=== PATIENT | female | born 1960 | race Caucasian/White ===

== ENCOUNTER 2016-09-12 11:12 | Outpatient (CLI) | payer MEDICARE, OTHER | END 2016-09-12 11:13 | disposition home or self-care (01) | DX: G47.00 Insomnia, unspecified (principal); F17.210 Nicotine dependence, cigarettes, uncomplicated | CPT/HCPCS: 99203; G0463 ==

== ENCOUNTER 2016-10-04 19:30 | Outpatient (CLI) | payer MEDICARE, OTHER | END 2016-10-04 19:31 | disposition home or self-care (01) | DX: G47.00 Insomnia, unspecified (principal); G47.8 Other sleep disorders ==

== ENCOUNTER 2016-10-11 09:14 | Outpatient (CLI) | payer MEDICARE, OTHER | END 2016-10-11 09:15 | disposition home or self-care (01) | DX: G47.00 Insomnia, unspecified (principal); R06.83 Snoring | CPT/HCPCS: 99214; G0463 ==

== ENCOUNTER 2016-12-05 09:00 | Emergency (ER) | payer MEDICARE, OTHER ==
[2016-12-05] MEDS ORDERED: PROMETHAZINE INJ 25 MG in SODIUM CHLORIDE 0.9% 50 ML IV STA ×2 (09:11→10:34)
[2016-12-05] MEDS ORDERED: SODIUM CHLORIDE 0.9% 1,000 ML IV ONE (09:11)
[2016-12-05] MEDS ORDERED: ONDANSETRON 4 MG/2 ML VIAL ONE ×2 (09:31→09:55)
[2016-12-05] MEDS ORDERED: ONDANSETRON 4 MG/2 ML VIAL IVP STA ×2 (09:38→09:51)
[2016-12-05 09:54] LABS: BASOPHILS % (AUTO) 0.4 %; EOSINOPHILS # (AUTO) 0.1 10^3/uL (0.0-0.7); EOSINOPHILS % (AUTO) 0.6 %; HCT - HEMATOCRIT 40.2 % (37.0-47.0); HGB - HEMOGLOBIN 13.6 g/dL (12.0-16.0); LYMPHOCYTES # (AUTO) 0.7 10^3/uL (1.5-3.5); LYMPHOCYTES % (AUTO) 6.9 %; MEAN CORPUSCULAR HEMOGLOBIN 29.7 pg (27.0-31.0); MEAN CORPUSCULAR HGB CONC 33.9 g/dL (32.0-36.0); MEAN CORPUSCULAR VOLUME 87.7 fL (81.0-99.0); MEAN PLATELET VOLUME 7.7 fL (7.9-10.8); MONOCYTES # (AUTO) 0.2 10^3/uL (0.0-1.0); MONOCYTES % (AUTO) 2.5 %; NEUTROPHILS # (AUTO) 8.8 10^3/uL (1.5-6.6); NEUTROPHILS % (AUTO) 89.6 %; RED BLOOD COUNT 4.59 10^6/uL (4.20-5.40); RED CELL DISTRIBUTION WIDTH 13.7 % (12.0-15.0); UNCORRECTED WHITE BLOOD COUNT 9.8 x10^3/uL; WHITE BLOOD COUNT 9.8 x10^3/uL (4.8-10.8)
--- NOTE | 2016-12-05 10:01 | ED Physician Documentation ---
History of Present Illness - Stated complaint Stated Complaint: VOMITING/ABD PX - Chief complaint Chief Complaint: Abd Pain - Additonal information Additional information: hx from pt 56 f s/p catrachita, L ooph, CS and lap for SBO 1 yr ago on ummunosuppressant meds for crohns to ER with mid r abd pain and NV despite zofran no travel sick contacts bad food loose stools are not new for her no blood in vomit or stools no fever Review of Systems Constitutional: denies: Fever, Chills GI: reports: Abdominal Pain, Nausea, Vomiting, Diarrhea. denies: Hematemesis, Bloody / black stool : denies: Now EGA Musculoskeletal: denies: Back pain Endocrine: denies: Easy bruising / bleeding Immunocompromised: reports: Immunocompromised (2/2 meds) PD PAST MEDICAL HISTORY - Past Medical History Past Medical History: Yes Cardiovascular: None Respiratory: Asthma, COPD Neuro: None Endocrine/Autoimmune: HyPOthyroidism GI: GERD, Crohn's disease : Incontinence, Other HEENT: None Psych: Depression, Anxiety, Bipolar disorder, Post traumatic stress disorder, Obsessive compulsive disorder, Other Musculoskeletal: Chronic back pain Derm: None - Past Surgical History Past Surgical History: Yes General: Cholecystectomy, Bowel surgery /CASING TIER: section, Oophrectomy HEENT: Tonsil/Adenoidectomy - Present Medications Home Medications: Ambulatory Orders Medication Instructions Recorded Confirmed Lamotrigine [Lamictal] 200 mg PO DAILY 11/23/12 12/05/16 Levothyroxine Sodium [Tirosint] 200 mcg PO DAILY 11/23/12 12/05/16 Methylphenidate HCl 20 mg PO TID 12/25/14 12/05/16 [Methylphenidate ER] Calcium Carbonate/Vitamin D3 1 tab PO DAILY 07/30/15 10/30/15 [Calcium 600 + Vit D3 Caplet] Cholecalciferol (Vitamin D3) 1,000 unit PO DAILY 07/30/15 10/30/15 [D3-2000] Fentanyl [Fentanyl 12mcg patch] 75 mcg TD 08/12/15 08/12/15 Albuterol Sulfate [Ventolin Hfa] 2 puffs IH Q4H PRN #1 hfa.aer.ad 02/11/16 Entyvio 04/07/16 Dicyclomine [Bentyl] 10 mg PO Q8H PRN #20 capsule 05/15/17 Ondansetron [Zofran Odt] 8 12/05/16 Promethazine Supp [Phenergan Supp] 25 mg [place] Q6H PRN #15 supp 12/05/16 - Allergies Allergies/Adverse Reactions: Allergies Allergy/AdvReac Type Severity Reaction Status Date / Time aripiprazole [From Abilify] Allergy Intermediate Nausea Verified 05/19/16 09:02 quetiapine fumarate * Allergy Intermediate Hives Verified 05/19/16 09:02 [From Seroquel] Sulfa (Sulfonamide Allergy Intermediate Hives Verified 05/19/16 09:02 Antibiotics) adalimumab [From Humira] Allergy Unknown Verified 05/19/16 09:02 Penicillins Allergy Hives Verified 05/19/16 09:02 - Social History Does the pt smoke?: Yes Smoking Status: Current every day smoker Does the pt drink ETOH?: No Does the pt have substance abuse?: Yes - Immunizations Immunizations are current?: Yes - POLST Patient has POLST: No PD ED PE NORMAL - Vitals Vital signs reviewed: Yes - General General: Alert and oriented X 3 - HEENT HEENT: PERRL - Cardiac Cardiac: RRR - Respiratory Respiratory: No respiratory distress, Clear bilaterally - Abdomen Abdomen: Soft, Other (TTP mid right abd s rebound or fuarding, no pulsatile mass appreciated) - Derm Derm: Normal color - Neuro Neuro: Alert and oriented X 3 Results - Vitals Vitals: Vital Signs - 24 hr 12/05/16 12/05/16 12/05/16 09:10 11:58 12:24 Temperature 36.6 C 36.9 C Heart Rate 60 59 L 59 L Respiratory 22 14 16 Rate Blood Pressure 141/73 H 133/81 H 128/88 H O2 Saturation 99 98 99 Oxygen O2 Source Room air - Tele (time rhythm occurred) 1155 Telemetry / rhythm strip: NSR, Other (no prolonged QT) - Labs Labs: Laboratory Tests 12/05/16 12/05/16 09:45 09:45 WBC 9.8 RBC 4.59 Hgb 13.6 Hct 40.2 MCV 87.7 MCH 29.7 MCHC 33.9 RDW 13.7 Plt Count 262 MPV 7.7 L Neut # 8.8 H Lymph # 0.7 L [place] # 0.2 Eos # 0.1 Baso # 0.0 Absolute Nucleated RBC 0.00 Nucleated RBCs 0.0 Sodium 141 Potassium 4.2 Chloride 105 Carbon Dioxide 24 Anion Gap 12.0 BUN 19 Creatinine 1.0 Estimated GFR (MDRD) 57 L Glucose 134 H Calcium 9.7 Total Bilirubin 0.6 AST 19 ALT 18 Alkaline Phosphatase 104 Total Protein 7.9 Albumin 4.5 Globulin 3.4 Albumin/Globulin Ratio 1.3 Lipase 20 L - Rads (name of study) CT abd pelvis Radiology: See rad report (no acute) PD MEDICAL DECISION MAKING - ED course ED course: CT lasb neg hx cyclic vomiting per chart states no relief with zofran phenergan and dilaudid so tried haldol and approx 25 min later p requested to go home - still with some sx but improved enough to go Departure - Departure Disposition: 01 Home, Self Care Clinical Impression: Nausea & vomiting Qualifiers: Vomiting type: unspecified Vomiting Intractability: unspecified Qualified Code( s): R11.2 - Nausea with vomiting, unspecified Abdominal pain Qualifiers: Abdominal location: unspecified location Qualified Code(s): R10.9 - Unspecified abdominal pain Condition: Good Instructions: ED Abdominal Pain Unkn Cause Follow-Up: Addi Landeros DO [Primary Care Provider] - Prescriptions: Dicyclomine [Bentyl] 10 mg PO Q8H PRN #20 capsule PRN Reason: Abdominal Pain Promethazine Supp [Phenergan Supp] 25 mg [place] Q6H PRN #15 supp PRN Reason: vomiting Comments: Your CT scan and labs were reassuring Review of your chart indicates you may have cyclic vomiting syndrome - perhaps that is what is happening today Given the reassuring work up I think it is safe to let you go home with zofran and phenergan for nausea and vomiting and bentyl for the pain Please follow up with your GI specialist And please get your blood pressure rechecked - it was high today Forms: Activity restrictions
[2016-12-05 10:08] LABS: ALBUMIN/GLOBULIN RATIO 1.3 (1.0-2.2); BILIRUBIN,TOTAL 0.6 mg/dL (0.2-1.0); CALCIUM 9.7 mg/dL (8.5-10.3); POTASSIUM 4.2 mmol/L (3.5-5.0); TOTAL PROTEIN 7.9 g/dL (6.7-8.2)
[2016-12-05] MEDS ORDERED: PROMETHAZINE 25 MG/1 ML VIAL ONE (10:15)
[2016-12-05] MEDS ORDERED: HYDROmorphone 1 MG/ML SYRINGE IVP STA (10:40)
[2016-12-05] MEDS ORDERED: HYDROmorphone 1 MG/ML SYRINGE ONE (10:45)
--- NOTE | 2016-12-05 11:14 | CT Preliminary Report ---
Exam: CT Abdomen/Pelvis W/O IMPRESSION: 1. No evidence of acute abdominal or pelvic process. 2. Postoperative changes from distal small bowel resection and cholecystectomy. [facility] SITE ID: [id number]
--- NOTE | 2016-12-05 11:16 | CT Report ---
EXAM: CT ABDOMEN AND PELVIS EXAM DATE: 12/05/2016 10:53 AM. CLINICAL HISTORY: Right-sided abdominal pain. History of small bowel obstruction and Crohn disease. COMPARISONS: None. TECHNIQUE: Routine helical CT imaging was performed through the abdomen and pelvis. IV contrast: No. Enteric contrast: No. Reconstructions: Coronal and sagittal. In accordance with CT protocol optimization, one or more of the following dose reduction techniques w ere utilized for this exam: automated exposure control, adjustment of mA and/or KV based on patient s ize, or use of iterative reconstructive technique. FINDINGS: Lung Bases: Unremarkable. Liver: Normal. No masses. Gallbladder/Bile Ducts: Gallbladder is surgically absent. No evidence of biliary obstruction. Spleen: Normal. Pancreas: Normal. Adrenal Glands: Normal. Kidneys: Normal. No masses or hydronephrosis. Peritoneal Cavity/Bowel: Previously seen small bowel obstruction has resolved. Postoperative changes are again seen from apparent segmental resection of the distal ileum. No ascites, lymphadenopathy, or pneumoperitoneum. The appendix is not clearly visualized. Pelvic Organs: Normal. The bladder and visualized pelvic organs are within normal limits. Vasculature: No aneurysms or other significant abnormality. Bones: No significant abnormality. Other: None. IMPRESSION: 1. No evidence of acute abdominal or pelvic process. 2. Postoperative changes from distal small bowel resection and cholecystectomy. [facility] Referring Provider Line: [phone] SITE ID: [id number]
[2016-12-05] MEDS ORDERED: HALOPERIDOL 5 MG/ML VIAL IM STA (11:43)
[2016-12-05] MEDS ORDERED: HALOPERIDOL 5 MG/ML VIAL ONE (11:48)
[2016-12-05 12:25] VITALS: BP 128/88
== END 2016-12-05 12:40 | disposition home or self-care (01) ==
LOC: ED 09:00
DX: R11.2 Nausea with vomiting, unspecified (principal); R10.31 Right lower quadrant pain; K50.90 Crohn's disease, unspecified, without complications; J44.9 Chronic obstructive pulmonary disease, unspecified; J45.909 Unspecified asthma, uncomplicated; E03.9 Hypothyroidism, unspecified; K21.9 Gastro-esophageal reflux disease without esophagitis; F17.200 Nicotine dependence, unspecified, uncomplicated
CPT/HCPCS: 36415; 74176; 80053; 83690; 85025; 96372; 96374; 96375; 99283; 99284; J1170

== ENCOUNTER 2016-12-23 11:00 | Outpatient (CLI) | payer MEDICARE, OTHER | END 2016-12-23 11:01 | disposition home or self-care (01) | LOC: LAB.R 11:00 | PROVIDERS: ATTEND Family Medicine | DX: N39.0 Urinary tract infection, site not specified (principal) | CPT/HCPCS: 87077; 87086 ==

== ENCOUNTER 2017-01-31 08:38 | Outpatient (CLI) | payer MEDICARE, OTHER ==
[2017-01-31 13:51] LABS: EOSINOPHILS # (AUTO) 0.2 10^3/uL (0.0-0.7); LYMPHOCYTES % (AUTO) 25.5 %; MONOCYTES # (AUTO) 0.5 10^3/uL (0.0-1.0); NEUTROPHILS # (AUTO) 4.1 10^3/uL (1.5-6.6)
[2017-01-31 13:54] LABS: BASOPHILS % (AUTO) 0.4 %; EOSINOPHILS % (AUTO) 3.5 %; HCT - HEMATOCRIT 36.1 % (37.0-47.0); HGB - HEMOGLOBIN 12.1 g/dL (12.0-16.0); LYMPHOCYTES # (AUTO) 1.6 10^3/uL (1.5-3.5); MEAN CORPUSCULAR HEMOGLOBIN 29.5 pg (27.0-31.0); MEAN CORPUSCULAR HGB CONC 33.5 g/dL (32.0-36.0); MEAN CORPUSCULAR VOLUME 88.1 fL (81.0-99.0); MEAN PLATELET VOLUME 7.9 fL (7.9-10.8); MONOCYTES % (AUTO) 7.5 %; NEUTROPHILS % (AUTO) 63.1 %; RED CELL DISTRIBUTION WIDTH 14.2 % (12.0-15.0); UNCORRECTED WHITE BLOOD COUNT 6.4 x10^3/uL; WHITE BLOOD COUNT 6.4 x10^3/uL (4.8-10.8)
[2017-01-31 14:09] LABS: ALBUMIN/GLOBULIN RATIO 1.3 (1.0-2.2); BILIRUBIN,TOTAL 0.4 mg/dL (0.2-1.0); BUN - BLOOD UREA NITROGEN 21 mg/dL (6-20); CALCIUM 9.3 mg/dL (8.5-10.3); CARBON DIOXIDE - CO2 26 mmol/L (21-32); CHLORIDE 105 mmol/L (101-111); CHOL/HDL RATIO 3.5 (<4.4); CHOLESTEROL 123 mg/dL; GFR - MDRD 57 (>89); GLUCOSE 88 mg/dL (70-100); HDL CHOLESTEROL 35 mg/dL; LDL/HDL RATIO 1.7 (<4.4); POTASSIUM 4.3 mmol/L (3.5-5.0); SODIUM 138 mmol/L (135-145); TOTAL PROTEIN 6.8 g/dL (6.7-8.2); TRIGLYCERIDES 138 mg/dL; VLDL CHOLESTEROL 28 mg/dL
[2017-01-31 19:32] LABS: HEMOGLOBIN A1C 0.44 g/dL
== END 2017-01-31 08:39 | disposition home or self-care (01) ==
LOC: LAB.WCP 08:38
PROVIDERS: ATTEND Nurse Practitioner Psychiatric/Mental Health
DX: Z79.899 Other long term (current) drug therapy (principal)
CPT/HCPCS: 36415; 80053; 80061; 82306; 83036; 84443; 85025

== ENCOUNTER 2017-04-03 08:00 | Outpatient (CLI) | payer MEDICARE, OTHER ==
[2017-04-03 14:04] LABS: BASOPHILS # (AUTO) 0.1 10^3/uL (0.0-0.1); BASOPHILS % (AUTO) 0.8 %; EOSINOPHILS # (AUTO) 0.3 10^3/uL (0.0-0.7); EOSINOPHILS % (AUTO) 4.4 %; HCT - HEMATOCRIT 40.8 % (37.0-47.0); HGB - HEMOGLOBIN 13.5 g/dL (12.0-16.0); LYMPHOCYTES # (AUTO) 1.5 10^3/uL (1.5-3.5); LYMPHOCYTES % (AUTO) 20.7 %; MEAN CORPUSCULAR HEMOGLOBIN 29.3 pg (27.0-31.0); MEAN CORPUSCULAR HGB CONC 33.2 g/dL (32.0-36.0); MEAN CORPUSCULAR VOLUME 88.3 fL (81.0-99.0); MEAN PLATELET VOLUME 7.8 fL (7.9-10.8); MONOCYTES # (AUTO) 0.4 10^3/uL (0.0-1.0); MONOCYTES % (AUTO) 6.1 %; NEUTROPHILS # (AUTO) 4.8 10^3/uL (1.5-6.6); RED BLOOD COUNT 4.61 10^6/uL (4.20-5.40); RED CELL DISTRIBUTION WIDTH 13.6 % (12.0-15.0)
[2017-04-03 14:09] LABS: ALBUMIN/GLOBULIN RATIO 1.3 (1.0-2.2); BILIRUBIN,TOTAL 0.6 mg/dL (0.2-1.0); BUN - BLOOD UREA NITROGEN 17 mg/dL (6-20); CALCIUM 9.6 mg/dL (8.5-10.3); CARBON DIOXIDE - CO2 28 mmol/L (21-32); CHLORIDE 103 mmol/L (101-111); GFR - MDRD 57 (>89); GLUCOSE 96 mg/dL (70-100); SODIUM 138 mmol/L (135-145); TOTAL PROTEIN 7.7 g/dL (6.7-8.2)
[2017-04-03 14:31] LABS: THYROID STIMULATING HORMONE 8.77 uIU/mL (0.34-5.60)
[2017-04-04 12:57] LABS: PROGESTERONE <0.5 ng/mL (())
[2017-04-05 20:02] LABS: DHEA SULFATE 26 mcg/dL (8-188)
== END 2017-04-03 08:01 | disposition home or self-care (01) ==
LOC: LAB.WCP 08:00
DX: G89.29 Other chronic pain (principal); F11.20 Opioid dependence, uncomplicated; Z79.891 Long term (current) use of opiate analgesic
CPT/HCPCS: 36415; 80053; 80061; 82306; 82525; 82533; 82607; 82627; 82670; 82728; 83090; 84144; 84443; 84630; 85025; 86140

== ENCOUNTER 2017-09-18 14:57 | Outpatient (CLI) | payer MEDICARE, OTHER ==
--- NOTE | 2017-09-19 13:16 | CT Report ---
CT CHEST WITHOUT CONTRAST FOR LUNG CANCER SCREENIN09/18/2017 CLINICAL INDICATION: A 56-year-old asymptomatic patient with a [id number] history of smoking, current smoker for screening. COMPARISON: Previous chest CT 12/16/2013. TECHNIQUE: Axial CT images of the chest were obtained without intravenous contrast, using low dose screening technique. FINDINGS: The heart and great vessels are unremarkable. No hilar or mediastinal lymphadenopathy is present. The lungs demonstrate emphysema. No suspicious pulmonary nodule or mass lesion is appreciated. Minimal atelectasis is seen in the right middle lobe. No effusion or pneumothorax is present. Osseous structures demonstrate degenerative changes. Limited evaluation of upper abdominal structures demonstrates normal adrenal glands. IMPRESSION: EMPHYSEMA. NO SUSPICIOUS PULMONARY NODULE OR MASS LESION. RECOMMENDATION: Continue annual screening with low dose CT in 12 months. LUNG RADS category 1 - negative. CT DOSE REDUCTION STATEMENT In accordance with CT protocol optimization, one or more of the following dose reduction techniques were utilized for this exam: automated exposure control, adjustment of mA and/or KV based on patient size, or use of iterative reconstructive technique. TD: 09/19/2017 13:15
== END 2017-09-18 14:58 | disposition home or self-care (01) ==
LOC: DI 14:57
PROVIDERS: ATTEND Family Medicine
DX: Z12.2 Encounter for screening for malignant neoplasm of respiratory organs (principal); J43.9 Emphysema, unspecified; F17.210 Nicotine dependence, cigarettes, uncomplicated

== ENCOUNTER 2017-09-19 08:00 | Outpatient (CLI) | payer MEDICARE, OTHER | END 2017-09-19 08:01 | disposition home or self-care (01) | LOC: LAB.WCP 08:00 | PROVIDERS: ATTEND Family Medicine | DX: N39.0 Urinary tract infection, site not specified (principal) | CPT/HCPCS: 87086 ==

== ENCOUNTER 2017-09-29 11:50 | Outpatient (CLI) | payer MEDICARE, OTHER ==
[2017-09-29 19:06] LABS: BASOPHILS % (AUTO) 0.5 %; EOSINOPHILS # (AUTO) 0.3 10^3/uL (0.0-0.7); EOSINOPHILS % (AUTO) 4.1 %; HGB - HEMOGLOBIN 13.2 g/dL (12.0-16.0); LYMPHOCYTES # (AUTO) 1.5 10^3/uL (1.5-3.5); LYMPHOCYTES % (AUTO) 20.3 %; MEAN CORPUSCULAR HEMOGLOBIN 28.1 pg (27.0-31.0); MEAN CORPUSCULAR HGB CONC 32.5 g/dL (32.0-36.0); MEAN CORPUSCULAR VOLUME 86.6 fL (81.0-99.0); MEAN PLATELET VOLUME 7.9 fL (7.9-10.8); MONOCYTES # (AUTO) 0.4 10^3/uL (0.0-1.0); NEUTROPHILS # (AUTO) 5.1 10^3/uL (1.5-6.6); NEUTROPHILS % (AUTO) 70.1 %; PLT - PLATELET COUNT 362 10^3/uL (130-450); RED CELL DISTRIBUTION WIDTH 13.8 % (12.0-15.0); WHITE BLOOD COUNT 7.3 x10^3/uL (4.8-10.8)
[2017-09-29 19:18] LABS: ALBUMIN 4.1 g/dL (3.2-5.5); ALBUMIN/GLOBULIN RATIO 1.1 (1.0-2.2); ALKALINE PHOSPHATASE 77 IU/L (42-121); ALT ALANINE AMINOTRANSFERASE 16 IU/L (10-60); AST ASPARTATE AMINOTRANSFERASE 18 IU/L (10-42); BILIRUBIN,TOTAL 0.4 mg/dL (0.2-1.0); BUN - BLOOD UREA NITROGEN 27 mg/dL (6-20); CARBON DIOXIDE - CO2 25 mmol/L (21-32); CHLORIDE 104 mmol/L (101-111); CREATININE 0.8 mg/dL (0.4-1.0); GFR - MDRD 74 (>89); GLUCOSE 120 mg/dL (70-100); SODIUM 138 mmol/L (135-145); TOTAL PROTEIN 7.7 g/dL (6.7-8.2)
[2017-09-29 19:31] LABS: THYROID STIMULATING HORMONE < 0.08 uIU/mL (0.34-5.60)
== END 2017-09-29 11:51 | disposition home or self-care (01) ==
LOC: LAB.WCP 11:50
PROVIDERS: ATTEND Family Medicine
DX: R63.4 Abnormal weight loss (principal)
CPT/HCPCS: 36415; 80053; 84439; 84443; 85025

== ENCOUNTER 2017-10-24 13:57 | Observation (INO) | payer MEDICARE, OTHER ==
--- NOTE | 2017-10-24 14:50 | ED Physician Documentation ---
PD HPI ABD PAIN - Stated complaint Stated Complaint: ABD PX/VOMITING - Chief complaint Chief Complaint: Abd Pain - History obtained from History obtained from: Patient - History of Present Illness Timing - onset: Yesterday Timing - duration: Days (2) Timing - details: Abrupt onset, Still present Quality: Cramping, Aching, Pain Location: All over / everywhere, Periumbilical Radiation: No: Left flank, Right flank Worsened by: Eating Associated symptoms: Fever (felt chills last night), Nausea, Vomiting, Diarrhea (loose today). No: Hematemesis, Constipation, Melena, Hematochezia Similar symptoms before: Diagnosis (Crohns disease exac.) Recently seen: Clinic (gets infusions for her Crohns every 8 weeks in [place].) Review of Systems Constitutional: reports: Chills, Myalgias. denies: Fever Nose: denies: Rhinorrhea / runny nose, Congestion Throat: denies: Sore throat Cardiac: denies: Chest pain / pressure Respiratory: denies: Cough GI: reports: Abdominal Pain (lower abd and mid abd), Nausea, Vomiting, Diarrhea (loose but not copious) : denies: Dysuria, Frequency PD PAST MEDICAL HISTORY - Past Medical History Cardiovascular: None Respiratory: Asthma, COPD Neuro: None Endocrine/Autoimmune: HyPOthyroidism GI: GERD, Crohn's disease : Incontinence, Other HEENT: None Psych: Depression, Anxiety, Bipolar disorder, Post traumatic stress disorder, Obsessive compulsive disorder, Other Musculoskeletal: Chronic back pain Derm: None - Past Surgical History Past Surgical History: Yes General: Cholecystectomy, Bowel surgery /FILER FINISH: section, Oophrectomy HEENT: Tonsil/Adenoidectomy - Present Medications Home Medications: Ambulatory Orders Medication Instructions Recorded Confirmed Levothyroxine Sodium [Tirosint] 200 mcg PO DAILY 11/23/12 12/05/16 lamoTRIgine [Lamictal] 200 mg PO DAILY 11/23/12 12/05/16 Methylphenidate HCl 20 mg PO TID 12/25/14 12/05/16 [Methylphenidate ER] Calcium Carbonate/Vitamin D3 1 tab PO DAILY 07/30/15 10/30/15 [Calcium 600 + Vit D3 Caplet] Cholecalciferol (Vitamin D3) 1,000 unit PO DAILY 07/30/15 10/30/15 [D3-2000] Albuterol Sulfate [Ventolin Hfa] 2 puffs IH Q4H PRN #1 hfa.aer.ad 02/11/16 Entyvio 04/07/16 Dicyclomine [Bentyl] 10 mg PO Q8H PRN #20 capsule 12/05/16 Ondansetron [Zofran Odt] 8 12/05/16 Promethazine Supp [Phenergan Supp] 25 mg [place] Q6H PRN #15 supp 12/05/16 Aripiprazole [Abilify] 10 mg PO DAILY 10/24/17 10/24/17 Modafinil [Provigil] 200 mg PO DAILY 10/24/17 10/24/17 clonazePAM [Clonazepam] 0.5 mg PO TID 10/24/17 10/24/17 fentaNYL 100 MCG PATCH [Duragesic 1 patch TOP Q48H 10/24/17 10/24/17 100mcg patch] - Allergies Allergies/Adverse Reactions: Allergies Allergy/AdvReac Type Severity Reaction Status Date / Time aripiprazole [From Abilify] Allergy Intermediate Nausea Verified 05/19/16 09:02 quetiapine fumarate * Allergy Intermediate Hives Verified 05/19/16 09:02 [From Seroquel] Sulfa (Sulfonamide Allergy Intermediate Hives Verified 05/19/16 09:02 Antibiotics) adalimumab [From Humira] Allergy Unknown Verified 05/19/16 09:02 Penicillins Allergy Hives Verified 05/19/16 09:02 - Social History Does the pt smoke?: Yes Smoking Status: Current every day smoker Does the pt drink ETOH?: No Does the pt have substance abuse?: Yes - Family History Family history: reports: Non contributory - Immunizations Immunizations are current?: Yes - POLST Patient has POLST: No PD ED PE NORMAL - Vitals Vital signs reviewed: Yes - General General: Alert and oriented X 3, Well developed/nourished, Other (appears in pain, with emesis bag in hand. somewhat pale. ) - HEENT HEENT: Ears normal, Pharynx benign. No: Moist mucous membranes - Neck Neck: Supple, no meningeal sign, No adenopathy - Cardiac Cardiac: RRR, No murmur - Respiratory Respiratory: Clear bilaterally - Abdomen Abdomen: Normal bowel sounds, Non distended, No organomegaly, Other (tender lower abd left more than right. Has percussion tenderness but no rebound. ) - Female Female : Deferred - Rectal Rectal: Deferred - Back Back: No CVA TTP - Derm Derm: Warm and dry. No: Normal color (some pallor) - Extremities Extremities: No tenderness to palpate, Normal ROM s pain, No edema, No calf tenderness / cord - Neuro Neuro: Alert and oriented X 3, No motor deficit, Normal speech - Psych Psych: Normal mood, Normal affect Results - Vitals Vitals: Vital Signs - 24 hr 10/24/17 10/24/17 10/24/17 14:03 17:00 18:13 Temperature 36.6 C 36.6 C Heart Rate 102 H 80 77 Respiratory 20 18 16 Rate Blood Pressure 144/103 H 109/72 108/70 O2 Saturation 95 95 99 Oxygen O2 Source Room air - Labs Labs: Laboratory Tests 10/24/17 10/24/17 10/24/17 15:00 15:15 15:40 WBC RBC Hgb Hct MCV MCH MCHC RDW Plt Count MPV Neut # Lymph # [place] # Eos # Baso # Absolute Nucleated RBC Nucleated RBC % ESR Sodium 138 Potassium 4.4 Chloride 101 Carbon Dioxide 22 Anion Gap 15.0 H BUN 26 H Creatinine 1.2 H Estimated GFR (MDRD) 46 L Glucose 173 H Lactic Acid 1.9 Calcium 10.4 H Magnesium 1.9 Total Bilirubin 0.9 AST 42 ALT 44 Alkaline Phosphatase 120 Total Protein 8.7 H Albumin 4.7 Globulin 4.0 Albumin/Globulin Ratio 1.2 Lipase 13 L Urine Color DARK YELLOW Urine Clarity CLOUDY Urine pH 5.5 Ur Specific [place] >=1.030 H Urine Protein 100 H Urine Glucose (UA) NEGATIVE Urine Ketones TRACE Urine Occult Blood TRACE-INTA Urine Nitrite NEGATIVE Urine Bilirubin NEGATIVE Urine Urobilinogen 0.2 (NORMAL) Ur Leukocyte Esterase NEGATIVE Urine RBC 0-5 Urine WBC 0-3 Ur Squamous Epith Cells MANY Squamous H Urine Bacteria Moderate H Urine Casts 3-5 Hyaline Casts Ur Microscopic Review INDICATED Urine Culture Comments NOT INDICATED 10/24/17 10/24/17 15:40 16:06 WBC 13.8 H RBC 5.17 Hgb 14.4 Hct 44.5 MCV 86.1 MCH 27.9 MCHC 32.4 RDW 14.4 Plt Count 288 MPV 7.0 L Neut # 12.9 H Lymph # 0.4 L [place] # 0.5 Eos # 0.0 Baso # 0.0 Absolute Nucleated RBC 0.01 Nucleated RBC % 0.0 ESR 4 Sodium Potassium Chloride Carbon Dioxide Anion Gap BUN Creatinine Estimated GFR (MDRD) Glucose Lactic Acid Calcium Magnesium Total Bilirubin AST ALT Alkaline Phosphatase Total Protein Albumin Globulin Albumin/Globulin Ratio Lipase Urine Color Urine Clarity Urine pH Ur Specific [place] Urine Protein Urine Glucose (UA) Urine Ketones Urine Occult Blood Urine Nitrite Urine Bilirubin Urine Urobilinogen Ur Leukocyte Esterase Urine RBC Urine WBC Ur Squamous Epith Cells Urine Bacteria Urine Casts Ur Microscopic Review Urine Culture Comments - Rads (name of study) abd/pelvic CT Radiology: Prelim report reviewed (no acute obstruction, perforation nor abscess. ), EMP read contemporaneously (mild general edema of lower colon) PD MEDICAL DECISION MAKING - ED course Complexity details: re-evaluated patient (improved symptoms after meds and fluids. 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 ), considered differential (Is having symptoms c /w likely Crohns exac. Consider viral GE but she is on some immune suppression, so concern for developing infection. 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 Would do test for C.Diff and then consider abx if concern for infectious. ) Departure - Departure Disposition: ED Place in Observation Clinical Impression: Exacerbation of Crohn's disease Qualifiers: Digestive disease complication type: without complication Qualified Code(s): K50.90 - Crohn's disease, unspecified, without complications Abdominal pain Qualifiers: Abdominal location: generalized Qualified Code(s): R10.84 - Generalized abdominal pain Nausea & vomiting Qualifiers: Vomiting type: unspecified Vomiting Intractability: non-intractable Qualified Code(s): R11.2 - Nausea with vomiting, unspecified Condition: Stable Record reviewed to determine appropriate education?: Yes Discharge Date/Time: 10/24/17 19:15
[2017-10-24] MEDS ORDERED: SODIUM CHLORIDE 0.9% 1,000 ML IV ONE ×3 (15:04→18:51)
[2017-10-24] MEDS ORDERED: ONDANSETRON 4 MG/2 ML VIAL IVP STA (15:04)
[2017-10-24] MEDS ORDERED: HYDROmorphone 1 MG/ML CARPUJECT IVP STA (15:04)
[2017-10-24] MEDS ORDERED: ACETAMINOPHEN 1,000 MG/100 ML 100 ML IV STA (15:05)
[2017-10-24 15:11] LABS: GLUCOSE, URINE (UA) NEGATIVE (NEGATIVE); KETONES,URINE (UA) TRACE mg/dL (NEGATIVE); LEUKOCYTE ESTERASE, URINE NEGATIVE (NEGATIVE); NITRITE,URINE NEGATIVE (NEGATIVE); OCCULT BLOOD,URINE TRACE-INTA (NEGATIVE); PH,URINE 5.5 PH (5.0-7.5); PROTEIN,URINE 100 mg/dL (NEGATIVE); UROBILINOGEN,URINE 0.2 (NORMAL) E.U./dL (NORMAL)
[2017-10-24 15:15] LABS: BILIRUBIN,URINE NEGATIVE (NEGATIVE); CLARITY,URINE CLOUDY (CLEAR); ICTOTEST,URINE NEGATIVE
[2017-10-24] MEDS ORDERED: IOPAMIDOL-300 100 ML VIAL ONE (15:21)
[2017-10-24 15:34] LABS: BACTERIA,URINE Moderate /HPF (None Seen); CASTS, URINE 3-5 Hyaline Casts /LPF; RBC,URINE 0-5 /HPF (0-5); SQUAMOUS EPITHELIAL CELL,UR MANY Squamous (<= Few)
[2017-10-24] MEDS ORDERED: DEXAMETHASONE 10 MG/ML VIAL IVP STA (15:48)
[2017-10-24] MEDS ORDERED: diphenhydrAMINE INJ 50 MG/ML VIAL IVP STA (15:48)
[2017-10-24 15:58] LABS: ALBUMIN 4.7 g/dL (3.2-5.5); ALBUMIN/GLOBULIN RATIO 1.2 (1.0-2.2); BILIRUBIN,TOTAL 0.9 mg/dL (0.2-1.0); CALCIUM 10.4 mg/dL (8.5-10.3); CREATININE 1.2 mg/dL (0.4-1.0); MAGNESIUM 1.9 mg/dL (1.7-2.8); TOTAL PROTEIN 8.7 g/dL (6.7-8.2)
[2017-10-24 16:10] LABS: BASOPHILS % (AUTO) 0.3 %; EOSINOPHILS % (AUTO) 0.3 %; HGB - HEMOGLOBIN 14.4 g/dL (12.0-16.0); LYMPHOCYTES # (AUTO) 0.4 10^3/uL (1.5-3.5); MEAN CORPUSCULAR HEMOGLOBIN 27.9 pg (27.0-31.0); MEAN CORPUSCULAR HGB CONC 32.4 g/dL (32.0-36.0); MEAN CORPUSCULAR VOLUME 86.1 fL (81.0-99.0); MONOCYTES # (AUTO) 0.5 10^3/uL (0.0-1.0); MONOCYTES % (AUTO) 3.4 %; NEUTROPHILS # (AUTO) 12.9 10^3/uL (1.5-6.6); PLT - PLATELET COUNT 288 10^3/uL (130-450); RED BLOOD COUNT 5.17 10^6/uL (4.20-5.40); RED CELL DISTRIBUTION WIDTH 14.4 % (12.0-15.0); WHITE BLOOD COUNT 13.8 x10^3/uL (4.8-10.8)
[2017-10-24] MEDS ORDERED: IOPAMIDOL-300 100 ML VIAL IVP ONE (16:54)
[2017-10-24] MEDS ORDERED: metroNIDAZOLE 500 MG/100 ML 500 MG/100 ML BAG IV ONE (17:28)
--- NOTE | 2017-10-24 17:28 | CT Report ---
EXAM: CT ABDOMEN AND PELVIS EXAM DATE: 10/24/2017 04:55 PM. CLINICAL HISTORY: Abd pain and vomiting today; h/o Crohn's. COMPARISONS: 12/05/2016. TECHNIQUE: Routine helical CT imaging was performed through the abdomen and pelvis. IV contrast: 80 M L ISOVUE 300. Enteric contrast: No. Reconstructions: Coronal and sagittal. In accordance with CT protocol optimization, one or more of the following dose reduction techniques w ere utilized for this exam: automated exposure control, adjustment of mA and/or KV based on patient s ize, or use of iterative reconstructive technique. FINDINGS: Lung Bases: Unremarkable. Liver: Normal. No masses. Gallbladder/Bile Ducts: Surgically absent. No ductal dilation. Spleen: Normal. Tiny accessory spleen. Pancreas: Normal. Adrenal Glands: Normal. Kidneys: Multiple small bilateral cysts. Otherwise unremarkable. No stone or hydronephrosis. Peritoneal Cavity/Bowel: Postoperative changes. Fluid-filled small bowel loops. No significant dilati on. No free fluid, free air or adenopathy. No masses or acute inflammatory process. Unremarkable jumana on of appendix. Pelvic Organs: Normal. The bladder and visualized pelvic organs are within normal limits. Vasculature: No aneurysms or other significant abnormality. Bones: No significant abnormality. Other: None. IMPRESSION: 1. Fluid-filled small bowel loops, but no significant dilation or wall thickening at this time. 2. Chronic or incidental findings as described. [facility] Referring Provider Line: [phone] SITE ID: [id number]
[2017-10-24] MEDS ORDERED: cefTRIAXone 1 GM in SODIUM CHLORIDE 0.9% MINIBAG 100 ML IV STA (17:38)
[2017-10-24] MEDS ORDERED: HYDROcod/ACETAM 5/325 MG TABLET PO PRN (18:44)
[2017-10-24] MEDS ORDERED: PROMETHAZINE 25 MG/1 ML VIAL IM PRN (18:44)
[2017-10-24] MEDS ORDERED: ZOLPIDEM 5 MG TABLET PO PRN (18:44)
[2017-10-24] MEDS ORDERED: ACETAMINOPHEN 325 MG TABLET PO PRN (18:44)
[2017-10-24] MEDS ORDERED: HYDROmorphone 1 MG/ML CARPUJECT IVP PRN (18:44)
[2017-10-24] MEDS ORDERED: NS W/20 MEQ KCL 1,000 ML IV SCH (19:00)
[2017-10-24 19:29] LABS: CRP - C-REACTIVE PROTEIN 1.7 mg/dL (0-1.0); CRP HIGH SENSITIVITY 20.6 mg/L
[2017-10-24] MEDS: SODIUM CHLORIDE FLUSH 0.9% 10 ML SYRINGE IVP PRN (19:54)
[2017-10-25] MEDS: SODIUM CHLORIDE FLUSH 0.9% 10 ML SYRINGE IVP SCH ×2 (01:03→10:29)
[2017-10-25] MEDS: metroNIDAZOLE 500 MG/100 ML 500 MG/100 ML BAG IV SCH ×2 (01:47→09:25)
[2017-10-25] MEDS: ONDANSETRON 4 MG/2 ML VIAL IVP PRN ×2 (03:17→08:32)
[2017-10-25] MEDS: SODIUM CHLORIDE FLUSH 0.9% 10 ML SYRINGE IVP PRN (03:19)
[2017-10-25 07:18] LABS: CALCIUM 8.8 mg/dL (8.5-10.3); CREATININE 0.7 mg/dL (0.4-1.0)
[2017-10-25] MEDS ORDERED: DICYCLOMINE 10 MG CAPSULE PO PRN (07:22)
[2017-10-25] MEDS ORDERED: ALBUTEROL NEB 2.5 MG/3 ML INH PRN (07:25)
[2017-10-25 07:29] LABS: HGB - HEMOGLOBIN 11.6 g/dL (12.0-16.0); MEAN CORPUSCULAR HGB CONC 32.2 g/dL (32.0-36.0); MEAN CORPUSCULAR VOLUME 87.2 fL (81.0-99.0); MEAN PLATELET VOLUME 7.4 fL (7.9-10.8); RED BLOOD COUNT 4.15 10^6/uL (4.20-5.40); RED CELL DISTRIBUTION WIDTH 14.4 % (12.0-15.0); WHITE BLOOD COUNT 13.2 x10^3/uL (4.8-10.8)
[2017-10-25 07:42] VITALS: BP 97/56
[2017-10-25] MEDS ORDERED: fentaNYL 100 MCG PATCH TOP SCH (08:00)
[2017-10-25] MEDS ORDERED: LEVOTHYROXINE 100 MCG TABLET PO SCH (08:30)
[2017-10-25] MEDS ORDERED: ONDANSETRON 4 MG/2 ML VIAL IVP PRN (08:42)
--- NOTE | 2017-10-25 08:44 | HISTORY & PHYSICAL EXAMINATION ---
DATE OF SERVICE: 10/24/2017 Physician: Anastasia Chadwick MD CHIEF COMPLAINT: Abdominal cramps and altered mental status. PRIMARY CARE PHYSICIAN: Addi Landeros DO. PULVERIZER OPERATOR: Courtney Bowden. HISTORY OF PRESENT ILLNESS: The patient is a 57-year-old white female with complicated history of Crohn's disease, status post bowel resections. In the past, she had been on Humira, regardless remained with active disease, requiring partial bowel resections; had complicated course mostly waxing and waning and from Humira was switched to Remicade. Around 2015, she had several episodes of active flares and I refer the reader to electric medical record and informative discharge summary and history and physical back from October 2015. In any case, after last significant flare and bowel resection from 2015, the patient was switched to a new medication, Entyvio, and she reports that on that she did not have any significant exacerbation during the past 2 years. She follows up with her leather stretcher regularly. During the past couple of years, she required short steroid course for a few times, however, she has not required in-hospital treatment. She reported that during the past 6 months, she actually received several antibiotic courses for different problems. She had bronchitis which resolved about 3 months ago, but lasted for over 2-months and for that she received antibiotic courses at least 2 times, maybe 3 times. Subsequently, she developed urinary tract infection, which resolved about a month ago and for that she also was on antibiotics. Regarding circumstances leading to the current admission, the patient was in her usual state of health up to around 7 a.m. on the morning of 10/24/2017; when she woke up in the morning she started to pass large amount of loose stools. She went to the bathroom at least 3-4 times, which was unusual frequency. Subsequently, she became nauseous and started to vomit intractably. Around noontime her noticed that she had altered mental status, they both felt that her presentation and time course and the sequence of her symptoms were similar to prior Crohn's exacerbation back in 2016. Therefore, they came to the ER for evaluation. On further review, the patient did not report cough, sputum production. Denied chest pain, shortness of breath, did not report dysuria. Regarding her weight, she thinks she lost some weight some time ago, but most recently her weight had been stable. Last time she received Entyvio was about 2 weeks ago. For additional factors, she mentions that she keeps a strict diet and that has not changed not even during the holiday. However, due to the preparations she was under stress and worked around her house more than usual. Upon presentation to the ER, the patient was found with tachycardia. Her initial heart rate was 102, temperature was normal 36.6 Celsius, blood pressure was 140/100, respiration rate 20, oxygen saturation 95% on room air. EMERGENCY ROOM workup showed white blood cell count of 13.8 with neutrophil predominance/left shift. Chemistry panel showed anion gap of 15, BUN 26, creatinine 1.2, lactic acid was borderline 1.9. Liver function tests unremarkable. Urinalysis with many squamous epithelial cells, otherwise unremarkable. CT scan of the abdomen did not show acute abnormality. The patient received IV fluids and the ER physician also gave her ceftriaxone and metronidazole plus also gave her steroids as well. PAST MEDICAL HISTORY 1. Complicated history of Crohn's disease, on multiple immunosuppressants and on biological therapy in the past. Currently on Entyvio, follows with leather stretcher, Dr. Zhen Linda, from [place]. 2. History of partial bowel resection secondary to Crohn's disease. 3. Hypothyroidism. 4. Chronic pain/opiate dependence using fentanyl patch. 5. Anxiety/depression/mental health disorder. 6. 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 FAMILY HISTORY: The patient reports that one of her cousins was diagnosed with Crohn's disease later in her life. She reports no other bowel pathology or significant chronic medical illnesses in first degree relatives. SOCIAL HISTORY: The patient lives with her . She smokes cigarettes. Does not drink, does not use drugs. She is functional with instrumental activities of daily living. REVIEW OF SYSTEMS: Please see pertinent positives and pertinent negatives listed at History of Present Illness. The patient did not report additional complaint on the 12- point review. ER workup reviewed by electric medical record. PHYSICAL EXAMINATION VITAL SIGNS: Please see listed above at History of Present Illness. GENERAL: The patient is a well-developed, female who was not in distress. SKIN: Mild pallor. No jaundice. No skin rash. HEENT: Oral mucosa moist. No ulcers. No thrush. RESPIRATORY: Clear to auscultation without wheezes or crackles. CVS: S1, S2 regular rate and rhythm. No pathologic murmur. ABDOMEN: Well healed surgical scars. Bowel tones present. Abdomen distended, diffusely tender without guarding or rebound. LYMPHATIC: No lymphedema. MUSCULOSKELETAL: Atraumatic. NEUROLOGIC: Alert, oriented, nonfocal. PSYCHIATRIC: Cooperative. ASSESSMENT/ACTIVE ISSUES/DIAGNOSES 1. 57-year-old patient with history of Crohn's disease, recently treated on Entyvio with good response, who presented with symptoms of diarrhea, nausea, vomiting and altered mental status. On admission, she appeared dehydrated with BUN above 25 and a mild acute kidney injury. Creatinine increasing from 0.9 to 1.2. Her case is complicated by recent history of multiple antibiotic courses. She has slightly elevated white blood cell count and being immunocompromised, possible infectious problem should be considered. 2. Recently treated urinary tract infection, no symptoms of dysuria. 3. Recent respiratory infections treated in the past 6 months. The patient reports resolution. 4. Mental health disorder/anxiety/depression, stable on current outpatient medications. 5. Hypothyroidism. 6. Chronic pain/opiate dependence. PLAN AND ORDERS 1. The patient is getting admitted under observation, given her stable vital signs and improvement after she was given IV hydration and medications for symptom control in the ER. Our plan will be to send stool cultures and stool for Clostridium difficile. In the meantime, we will use another dose of IV Flagyl and continue hydration and symptom control. We will avoid proton pump inhibitor with concern of Clostridium difficile. Regarding Crohn's exacerbation, which the patient likely has, if she rules out for infection, we will discuss the case with her leather stretcher in the morning after stool cultures return. We will monitor the patient overnight and we will adjust therapies based on her clinical course. Until infection is ruled out in particular Clostridium difficile, I will not start IV steroids. Subsequently, if it is proven to be a Crohn's flare, then obviously we will treat with steroids and I will further discuss with the patient's leather stretcher. 2. Regarding past medical problems, we will continue outpatient medications unchanged, awaiting medication reconciliation. 3. Deep venous thrombosis prophylaxis. 4. FULL CODE. 5. Smoking cessation recommended. Attestation: Patient is admitted under observation; the reasonable expectation is that she gets discharged in 48 hrs. Time spent in care of this patient was 55 minutes. cc: Addi Odell D.O. TD: 10/24/2017 19:52 MATTHIAS
[2017-10-25] MEDS ORDERED: ARIPiprazole 5 MG TABLET PO SCH (09:00)
[2017-10-25] MEDS ORDERED: MODAFINIL 200 MG PO SCH (09:00)
[2017-10-25] MEDS ORDERED: POLYETHYLENE GLYCOL 3350 17 GM PACKET PO SCH (09:00)
[2017-10-25] MEDS ORDERED: CHOLECALCIFEROL 1,000 UNIT TABLET PO SCH (09:00)
[2017-10-25] MEDS ORDERED: Modafinil [Provigil] 200 MG PO SCH (10:43)
[2017-10-25] MEDS ORDERED: METHYLPHENIDATE 10 MG TABLET PO SCH (11:00)
[2017-10-25] MEDS ORDERED: NICOTINE 21 MG PATCH TOP SCH (11:00)
[2017-10-25] MEDS ORDERED: BUDESONIDE 3 MG CAPSULE PO SCH (12:00)
--- NOTE | 2017-10-25 12:04 | Discharge Plan ---
Discharge Plan Disposition: Home, Self Care Prescriptions: Budesonide [Entocort EC] 9 mg PO DAILY #14 capsule Nicotine 21 mg Patch [Nicoderm] 1 patch TOP DAILY #14 patch Activity Restrictions: Activity as Tolerated Additional Instructions or Follow Up instructions: Follow up with Gastroenterology 2 weeks following discharge. Call Dr. Zhen Linda 's office [phone] to schedule the appointment. Take Entocort 9 mg daily until seen by Dr. Linda, further instructions at the appointment. Take Flagyl for 3 days following discharge. Clear liquid diet for 2 days, advance as tolerated. No Smoking: If you smoke, Please STOP! Call for help. Follow-up with: Addi Landeros DO [Primary Care Provider] - Davide Linda MD [Physician No Access] -
[2017-10-25] MEDS ORDERED: clonazePAM 0.5 MG TABLET PO SCH (14:00)
[2017-10-25] MEDS ORDERED: lamoTRIgine 100 MG TABLET PO SCH (21:00)
[2017-10-26] MEDS ORDERED: CALCIUM CARB (OYSTER SHELL) 500 MG TABLET PO SCH (09:00)
--- NOTE | 2017-10-26 15:22 | DISCHARGE SUMMARY ---
Physician: Anastasia Chadwick MD DATE OF ADMISSION: 10/24/2017 DATE OF DISCHARGE: 10/25/2017 PRIMARY CARE PHYSICIAN: Debra Landeros DO CHIEF COMPLAINT: Abdominal pain, nausea, vomiting, and altered mental status. DISCHARGE DIAGNOSES 1. Crohn exacerbation. 2. Intractable nausea and vomiting, loose stools, and abdominal cramps secondary to Crohn exacerbation. 3. Mild encephalopathy in the setting of acute illness, resolved. 4. Uncontrolled pain. 5. Dehydration. 6. Mild leukocytosis in the setting of Crohn flare. DISCHARGE RECOMMENDATIONS 1. Patient was started on oral steroid treatment for Crohn flare. This was discussed with her overhead foreman, Dr. Linda. She is recommended to take Entocort for 2 weeks and then see her overhead foreman, who will give further instructions. 2. Patient is recommended to see an outpatient recorder gravity prospecting/dietitian, have counseling for binge eating. 3. Smoking cessation recommended and discussed. 4. Return precautions given. DISCHARGE EXAMINATION: Afebrile, vital signs stable. Patient was alert, oriented, neurologically nonfocal. She ambulated in her room, was looking forward to being discharged. She verbalized understanding of discharge plan and followup. DISCHARGE MEDICATIONS New medications started: 1. Entocort 9 mg p.o. daily for 2 weeks. 2. Flagyl 500 mg p.o. q.8 hours recommended to be continued for 3 more days following discharge, altogether to finish a 5-day course. 3. Nicotine patch. The following home medications continued unchanged: 1. Entyvio per Gastroenterology, per prior routine. 2. Ascorbic acid 1000 mg p.o. every 48 hours. 3. Zofran 4 mg tablets p.o. 3 times daily p.r.n. for nausea. 4. Abilify 10 mg tablet p.o. daily. 5. Calcium carbonate and vitamin D supplements. 6. Clonazepam 0.5 mg p.o. 3 times daily p.r.n. for anxiety. 7. Fentanyl patch per prior routine. 8. Lamotrigine 200 mg p.o. at bedtime. 9. Levothyroxine 200 mcg p.o. daily. 10. Provigil 200 mg p.o. daily. SECONDARY DIAGNOSES/PAST MEDICAL HISTORY 1. Hypothyroidism. 2. Chronic pain/opiate dependence. 3. History of Crohn disease, status post partial bowel resection. 4. Anxiety/depression/mental health disorder. DIAGNOSTIC WORKUP Clostridium difficile culture was negative. C-reactive protein was slightly elevated at 1.7. High-sensitivity C-reactive protein was 20.6. Electrolytes were unremarkable. Renal function was slightly impaired with BUN of 26 and creatinine of 1.2. White blood cell count was 13.8. CT scan of the abdomen and pelvis showed no acute abnormality. There were chronic findings secondary to the patient's underlying Crohn disease and history of bowel resection. BRIEF PRESENTATION AND HOSPITAL COURSE: Patient is a 57-year-old female, whom I admitted on 10/24/2017. I refer the reader to the History and Physical. Briefly, she presented with a 1-day history of abdominal cramps, intractable nausea, vomiting, and loose stools. Her felt that after she had been vomiting for several hours, she appeared slightly confused, and she was definitely lethargic when she presented to the ER. Patient and felt that her symptoms and the time course were similar to her prior exacerbations with Crohn disease. She received supportive care, IV hydration and symptom control. She was ruled out for bowel infection or any other acute infection. Notably, she did not have any focal infectious site or complaint except for the abdominal pain and GI symptoms. Her CT scan of the abdomen was unremarkable. Clostridium difficile was negative. Initially, she received Flagyl and her symptoms dramatically improved in the first 24 hours of her hospital stay. She was dehydrated. Also, hydration greatly improved her general well being. I discussed the case with overhead foreman, Dr. Linda. He recommended that for Crohn flare patient get started on steroid, which she should take for 2 weeks, and then she should follow up with Gastroenterology. Patient was given instructions accordingly. Given that she got Flagyl during her 2-day hospital stay and she greatly improved, I actually continued Flagyl for additional 3 days. Prior to discharge stool cultures were negative, however. Patient was seen by recorder gravity prospecting. She reported binge eating; therefore, she is recommended to follow up as an outpatient. Smoking cessation was discussed. Overall, patient had rapidly improving course during her hospitalization, developed no new complaints. She was discharged in stable condition, and her care was coordinated with her outpatient overhead foreman. She is discharged to continue close outpatient followup and treatment. Time spent with the discharge was more than 30 minutes. cc: MD Addi Brown DO TD: 10/25/2017 21:08 MATTHIAS
== END 2017-10-25 13:00 | disposition home or self-care (01) ==
LOC: ED 13:57 → OBS 18:44
PROVIDERS: ADMIT Internal Medicine; ATTEND Internal Medicine
DX: K50.90 Crohn's disease, unspecified, without complications (principal); G93.40 Encephalopathy, unspecified; E86.0 Dehydration; N17.9 Acute kidney failure, unspecified; F41.9 Anxiety disorder, unspecified; F31.9 Bipolar disorder, unspecified; F43.10 Post-traumatic stress disorder, unspecified; F42.9 Obsessive-compulsive disorder, unspecified; E03.9 Hypothyroidism, unspecified; G89.29 Other chronic pain; F11.20 Opioid dependence, uncomplicated; F17.210 Nicotine dependence, cigarettes, uncomplicated; Z90.49 Acquired absence of other specified parts of digestive tract; Z72.4 Inappropriate diet and eating habits; Z79.899 Other long term (current) drug therapy; Z87.440 Personal history of urinary (tract) infections; Z87.09 Personal history of other diseases of the respiratory system; Z22.322 Carrier or suspected carrier of Methicillin resistant Staphylococcus aureus
CPT/HCPCS: 36415; 74177; 80048; 80053; 81001; 83605; 83690; 83735; 85025; 85027; 85651; 86140; 86141; 87040; 87493; 96361; 96365; 96366; 96367; 96375; 96376; 99283; 99284; A9270; G0378; J0131; J1170; J1200; Q9967; 81003; 87086; 87798

== ENCOUNTER 2017-12-07 08:08 | Outpatient (CLI) | payer MEDICARE, OTHER ==
--- NOTE | 2017-12-08 16:11 | DEXA Report ---
DEXA SCAN: 12/07/2017 CLINICAL INDICATION: Bone disorder. TECHNIQUE: Dual energy x-ray absorptiometry (DXA) was performed on a [employer] system. Regions measured are the AP spine, femoral neck, and, if needed, forearm. COMPARISON: None. In accordance with the International Society for Clinical Densitometry (ISCD) guidelines, data from previous exams may be reanalyzed using current recommendations and techniques. This is done to allow a more accurate basis for comparison with the current study. FINDINGS: The data for the lumbar spine is as follows: REGION BMD (g/cm/cm) T-SCORE Z-SCORE L1 0.992 -1.1 -0.2 L2 1.075 -1.0 -0.1 L3 0.992 -1.7 -0.8 L4 1.160 -0.3 0.6 TOTAL 1.061 -1.0 0.0 NOTE: All evaluable vertebrae are used for classification. The data for the hip is as follows: REGION BMD (g/cm/cm) T-SCORE Z-SCORE Neck 0.796 -1.7 -0.6 TOTAL 0.825 -1.5 -0.7 NOTE: The femoral neck or total proximal femur, whichever is lowest, is used for classification. IMPRESSION: THE WHO CLASSIFICATION BASED ON THE INTERNATIONAL REFERENCE STANDARD IS OSTEOPENIA. THE FRACTURE RISK IS INCREASED. RECOMMENDATION: Patients with diagnosis of osteoporosis or osteopenia should have regular bone mineral density assessment. For those eligible for Medicare, routine testing is allowed once every 2 years. Testing frequency can be increased for patients who have rapidly progressing disease or for those who are receiving medical therapy to restore bone mass. COMMENT: World Health Organization (WHO) definitions for osteoporosis and osteopenia: NORMAL BMD: T-score at 1.0 or higher, fracture risk is low. OSTEOPENIA BMD: T-score between 1.0 and -2.5, fracture risk is increased. OSTEOPOROSIS BMD: T-score at 2.5 or lower, fracture risk high. National Osteoporosis Foundation recommends: 1. Obtain adequate dietary calcium (at least 1200 mg per day) and vitamin D (400 -800 international units per day). 2. Participate, as appropriate, in regular weightbearing and muscle- strengthening exercise. 3. Avoid tobacco use and reduce alcohol and caffeine intake. 4. For more detailed information see the website at www.NOF.org. MTDD
== END 2017-12-07 08:09 | disposition home or self-care (01) ==
LOC: DI 08:08
PROVIDERS: ATTEND Family Medicine
DX: M89.9 Disorder of bone, unspecified (principal); M85.80 Other specified disorders of bone density and structure, unspecified site
CPT/HCPCS: 77080

== ENCOUNTER 2018-03-27 11:57 | Emergency (ER) | payer MEDICARE, OTHER ==
[2018-03-27 13:13] LABS: BASOPHILS # (AUTO) 0.1 10^3/uL (0.0-0.1); BASOPHILS % (AUTO) 0.7 %; HGB - HEMOGLOBIN 15.6 g/dL (12.0-16.0); LYMPHOCYTES # (AUTO) 0.5 10^3/uL (1.5-3.5); LYMPHOCYTES % (AUTO) 4.8 %; MEAN CORPUSCULAR HEMOGLOBIN 30.1 pg (27.0-31.0); MEAN CORPUSCULAR HGB CONC 34.1 g/dL (32.0-36.0); MEAN CORPUSCULAR VOLUME 88.2 fL (81.0-99.0); MONOCYTES # (AUTO) 0.2 10^3/uL (0.0-1.0); MONOCYTES % (AUTO) 1.8 %; NEUTROPHILS # (AUTO) 9.5 10^3/uL (1.5-6.6); NEUTROPHILS % (AUTO) 92.7 %; PLT - PLATELET COUNT 389 10^3/uL (130-450); RED CELL DISTRIBUTION WIDTH 14.7 % (12.0-15.0); WHITE BLOOD COUNT 10.2 x10^3/uL (4.8-10.8)
[2018-03-27 13:27] LABS: ALBUMIN 5.1 g/dL (3.2-5.5); ALBUMIN/GLOBULIN RATIO 1.2 (1.0-2.2); BILIRUBIN,TOTAL 0.6 mg/dL (0.2-1.0); CALCIUM 10.5 mg/dL (8.5-10.3); CREATININE 1.1 mg/dL (0.4-1.0); TOTAL PROTEIN 9.3 g/dL (6.7-8.2)
[2018-03-27] MEDS ORDERED: SODIUM CHLORIDE 0.9% 1,000 ML IV ONE (14:23)
[2018-03-27 14:34] LABS: BILIRUBIN,URINE NEGATIVE (NEGATIVE); GLUCOSE, URINE (UA) NEGATIVE (NEGATIVE); KETONES,URINE (UA) 15 mg/dL (NEGATIVE); LEUKOCYTE ESTERASE, URINE NEGATIVE (NEGATIVE); NITRITE,URINE NEGATIVE (NEGATIVE); OCCULT BLOOD,URINE SMALL (NEGATIVE); PH,URINE 8.5 PH (5.0-7.5); PROTEIN,URINE >=300 mg/dL (NEGATIVE); UROBILINOGEN,URINE 0.2 (NORMAL) E.U./dL (NORMAL)
[2018-03-27] MEDS ORDERED: LORazepam 2 MG/ML VIAL IVP STA (14:34)
[2018-03-27] MEDS ORDERED: HYOSCYAMINE SL 0.125 MG TABLET SL STA (14:34)
[2018-03-27] MEDS ORDERED: ONDANSETRON 4 MG/2 ML VIAL IVP STA ×2 (14:34→16:35)
[2018-03-27 14:36] LABS: CLARITY,URINE HAZY (CLEAR)
--- NOTE | 2018-03-27 14:37 | ED Physician Documentation ---
PD HPI ABD PAIN - Stated complaint Stated Complaint: VOMITING - Chief complaint Chief Complaint: Abd Pain - History obtained from History obtained from: Patient, Family - History of Present Illness Timing - onset: Today Timing - duration: Days (1) Timing - details: Abrupt onset Pain level max: 10 Pain level now: 10 Quality: Aching, Pain, Other (burning, "raw") Location: All over / everywhere Radiation: Other (non-radiating) Improved by: Other (nothing, out of zofran.) Worsened by: Eating Associated symptoms: Nausea, Vomiting. No: Fever, Hematemesis, Diarrhea, Constipation, Melena, Hematochezia Similar symptoms before: Diagnosis (crohns) Recently seen: Other (admitted last week to [facility] for "crohn's flare") Review of Systems Ten Systems: 10 systems reviewed and negative Constitutional: denies: Fever, Chills Throat: denies: Sore throat Cardiac: denies: Chest pain / pressure Respiratory: denies: Cough GI: reports: Abdominal Pain, Nausea, Vomiting. denies: Diarrhea, Hematemesis, Bloody / black stool Skin: denies: Rash Musculoskeletal: denies: Neck pain, Back pain, Extremity pain Neurologic: reports: Generalized weakness. denies: Headache PD PAST MEDICAL HISTORY - Past Medical History Cardiovascular: None Respiratory: Asthma, COPD Endocrine/Autoimmune: HyPOthyroidism GI: GERD, Crohn's disease : Incontinence, Other HEENT: None Psych: Depression, Anxiety, Bipolar disorder, Post traumatic stress disorder, Obsessive compulsive disorder, Other Musculoskeletal: Chronic back pain Derm: None - Past Surgical History Past Surgical History: Yes General: Cholecystectomy, Bowel surgery /[employer]EV[employer]ATOR: section, Oophrectomy HEENT: Tonsil/Adenoidectomy - Present Medications Home Medications: Ambulatory Orders Medication Instructions Recorded Confirmed Levothyroxine Sodium [Tirosint] 200 mcg PO DAILY 11/23/12 10/25/17 lamoTRIgine [Lamictal] 200 mg PO QPM 11/23/12 10/25/17 Calcium Carbonate/Vitamin D3 1 tab PO DAILY 07/30/15 10/25/17 [Calcium 600-Vit D3 800 [place]] Cholecalciferol (Vitamin D3) 1,000 unit PO DAILY 07/30/15 10/25/17 [D3-2000] Entyvio 300 mg IV .Q8W 04/07/16 10/25/17 Ondansetron [Zofran Odt] 4 mg PO TID PRN 12/05/16 10/25/17 Aripiprazole [Abilify] 10 mg PO DAILY 10/24/17 10/24/17 Modafinil [Provigil] 200 mg PO DAILY 10/24/17 10/24/17 clonazePAM [Clonazepam] 0.5 mg PO TID 10/24/17 10/24/17 fentaNYL 100 MCG PATCH [Duragesic 1 patch TOP Q48H 10/24/17 10/24/17 100mcg patch] Ascorbic Acid 1,000 mg PO Q48H 10/25/17 10/25/17 Budesonide [Entocort EC] 9 mg PO DAILY #14 capsule 10/25/17 Nicotine 21 mg Patch [Nicoderm] 1 patch TOP DAILY #14 patch 10/25/17 Hyoscyamine Sulfate [Levsin-Sl] 0.125 mg SL Q6H PRN #10 tab.subl 03/27/18 LORazepam [Ativan] 0.5 mg PO Q6H PRN #7 tablet 03/27/18 Ondansetron Odt [Zofran] 4 mg TL Q6H PRN #10 tablet 03/27/18 - Allergies Allergies/Adverse Reactions: Allergies Allergy/AdvReac Type Severity Reaction Status Date / Time quetiapine fumarate * Allergy Intermediate Hives Verified 03/27/18 12:12 [From Seroquel] Sulfa (Sulfonamide Allergy Intermediate Hives Verified 03/27/18 12:12 Antibiotics) adalimumab [From Humira] Allergy Unknown Verified 03/27/18 12:12 Penicillins Allergy Hives Verified 03/27/18 12:12 - Social History Does the pt smoke?: Yes Smoking Status: Current every day smoker Does the pt drink ETOH?: No Does the pt have substance abuse?: Yes - Immunizations Immunizations are current?: Yes - POLST Patient has POLST: No PD ED PE NORMAL - Vitals Vital signs reviewed: Yes - General General: Alert and oriented X 3, Other (appears very anxious) - HEENT HEENT: Moist mucous membranes - Neck Neck: Supple, no meningeal sign - Cardiac Cardiac: RRR, Strong equal pulses - Respiratory Respiratory: No respiratory distress, Clear bilaterally - Abdomen Abdomen: Soft, Non tender, Non distended - Back Back: No CVA TTP, No spinal TTP - Derm Derm: Warm and dry, No rash - Extremities Extremities: No calf tenderness / cord - Neuro Neuro: Alert and oriented X 3 - Psych Psych: Other (anxious) Results - Vitals Vitals: Vital Signs - 24 hr 03/27/18 03/27/18 12:07 15:09 Temperature 37.4 C Heart Rate 74 65 Respiratory 16 18 Rate Blood Pressure 131/105 H 158/92 H O2 Saturation 100 94 Oxygen O2 Source Room air - Labs Labs: Laboratory Tests 03/27/18 03/27/18 03/27/18 13:03 13:03 14:31 WBC 10.2 RBC 5.20 Hgb 15.6 Hct 45.8 MCV 88.2 MCH 30.1 MCHC 34.1 RDW 14.7 Plt Count 389 MPV 7.0 L Neut # (Auto) 9.5 H Lymph # (Auto) 0.5 L [place] # (Auto) 0.2 Eos # (Auto) 0.0 Baso # (Auto) 0.1 Absolute Nucleated RBC 0.01 Nucleated RBC % 0.0 Sodium 141 Potassium 3.4 L Chloride 102 Carbon Dioxide 23 Anion Gap 16.0 H BUN 24 H Creatinine 1.1 H Estimated GFR (MDRD) 51 L Glucose 163 H Calcium 10.5 H Total Bilirubin 0.6 AST 29 ALT 23 Alkaline Phosphatase 122 H Total Protein 9.3 H Albumin 5.1 Globulin 4.2 Albumin/Globulin Ratio 1.2 Lipase 49 Urine Color YELLOW Urine Clarity HAZY Urine pH 8.5 H Ur Specific [place] 1.020 Urine Protein >=300 H Urine Glucose (UA) NEGATIVE Urine Ketones 15 H Urine Occult Blood SMALL H Urine Nitrite NEGATIVE Urine Bilirubin NEGATIVE Urine Urobilinogen 0.2 (NORMAL) Ur Leukocyte Esterase NEGATIVE Urine RBC 0-5 Urine WBC 0-3 Ur Squamous Epith Cells NONE SEEN Amorphous Sediment Moderate Urine Bacteria Few Ur Microscopic Review INDICATED Urine Culture Comments NOT INDICATED PD MEDICAL DECISION MAKING - ED course Complexity details: reviewed old records, reviewed results, re-evaluated patient , considered differential, d/w patient ED course: Patient is a 57-year-old female who presents to the emergency department with abdominal pain. Pain is greatly improved in the emergency department. Appears to be very anxious as well and the Ativan helped her significantly. Tolerating p.o. without difficulty. IV fluids given. She feels much better and would like to go home at this time. Will prescribe medications for home and have her follow-up with her doctor for further care. Abdomen is soft, nontender nondistended on serial exam. Patient counseled regarding signs and symptoms for which I believe and urgent re-evaluation would be necessary. Patient with good understanding of and agreement to plan and is comfortable going home at this time This document was made in part using voice recognition software. While efforts are made to proofread this document, sound alike and grammatical errors may occur. - Sepsis Event Vital Signs: Vital Signs - 24 hr 03/27/18 03/27/18 12:07 15:09 Temperature 37.4 C Heart Rate 74 65 Respiratory 16 18 Rate Blood Pressure 131/105 H 158/92 H O2 Saturation 100 94 Oxygen O2 Source Room air Departure - Departure Disposition: 01 Home, Self Care Clinical Impression: Nausea & vomiting Qualifiers: Vomiting type: unspecified Vomiting Intractability: non-intractable Qualified Code(s): R11.2 - Nausea with vomiting, unspecified Abdominal pain Qualifiers: Abdominal location: generalized Qualified Code(s): R10.84 - Generalized abdominal pain Condition: Good Instructions: ED Abdominal Pain Unkn Cause Follow-Up: your,doctor in 3 days [Other] Prescriptions: Hyoscyamine Sulfate [Levsin-Sl] 0.125 mg SL Q6H PRN #10 tab.subl PRN Reason: Abdominal Pain LORazepam [Ativan] 0.5 mg PO Q6H PRN #7 tablet PRN Reason: Anxiety Ondansetron Odt [Zofran] 4 mg TL Q6H PRN #10 tablet PRN Reason: Nausea / Vomiting Comments: Continue your medications at home. Return if you worsen. Follow-up with your doctor for further care. Your laboratory testing does not reveal any acute abnormalities today. Discharge Date/Time: 03/27/18 16:59
[2018-03-27 15:10] VITALS: BP 158/92
[2018-03-27 15:15] LABS: AMORPHOUS SEDIMENT,UR Moderate /LPF; BACTERIA,URINE Few /HPF (None Seen); RBC,URINE 0-5 /HPF (0-5); SQUAMOUS EPITHELIAL CELL,UR NONE SEEN (<= Few)
[2018-03-27] MEDS ORDERED: HYDROmorphone 1 MG/ML CARPUJECT IVP STA (15:20)
== END 2018-03-27 16:59 | disposition home or self-care (01) ==
LOC: ED 11:57
DX: R11.2 Nausea with vomiting, unspecified (principal); R10.84 Generalized abdominal pain; J44.9 Chronic obstructive pulmonary disease, unspecified; K50.90 Crohn's disease, unspecified, without complications; F17.200 Nicotine dependence, unspecified, uncomplicated
CPT/HCPCS: 36415; 80053; 81001; 83690; 85025; 96361; 96374; 96375; 96376; 99283; A9270; J1170; J2060; 81003; 87086

== ENCOUNTER 2018-09-02 18:35 | Outpatient (CLI) | payer MEDICARE | END 2018-09-02 18:36 | disposition critical access hospital (66) | LOC: EMS 18:35 | PROVIDERS: ATTEND Surgery | DX: R10.84 Generalized abdominal pain (principal) | CPT/HCPCS: A0425; A0427 ==

== ENCOUNTER 2018-09-02 18:55 | Inpatient (IN) | payer MEDICARE, OTHER ==
[2018-09-02] MEDS ORDERED: SODIUM CHLORIDE 0.9% 1,000 ML IV ONE (19:01)
[2018-09-02] MEDS ORDERED: HYDROmorphone 2 MG/ML VIAL IVP STA (19:01)
[2018-09-02] MEDS ORDERED: METOCLOPRAMIDE 10 MG/2 ML VIAL IVP STA (19:01)
--- NOTE | 2018-09-02 19:04 | ED Physician Documentation ---
PD HPI ABD PAIN - Stated complaint Stated Complaint: ABD PAIN - History obtained from History obtained from: Patient, EMS - History of Present Illness Timing - onset: Yesterday (57-year-old woman with history of Crohn's status post remote surgery presents with 1 day of central abdominal pain and vomiting. Somewhat constipated but did have a bowel movement today. No diarrhea. No fevers. Pain is severe as he is vomiting. Had no relief with Zofran in route. Had transient hypotension in route.) Review of Systems Ten Systems: 10 systems reviewed and negative Constitutional: denies: Fever, Chills Throat: reports: Reviewed and negative Cardiac: reports: Reviewed and negative Respiratory: reports: Reviewed and negative PD PAST MEDICAL HISTORY - Past Medical History Cardiovascular: None Respiratory: Asthma, COPD Endocrine/Autoimmune: HyPOthyroidism GI: GERD, Crohn's disease : Incontinence, Other HEENT: None Psych: Depression, Anxiety, Bipolar disorder, Post traumatic stress disorder, Obsessive compulsive disorder, Other Musculoskeletal: Chronic back pain Derm: None - Past Surgical History Past Surgical History: Yes General: Cholecystectomy, Bowel surgery /GRINDING OPERATOR: section, Oophrectomy HEENT: Tonsil/Adenoidectomy - Present Medications Home Medications: Ambulatory Orders Medication Instructions Recorded Confirmed Levothyroxine Sodium [Tirosint] 200 mcg PO DAILY 11/23/12 09/02/18 lamoTRIgine [Lamictal] 200 mg PO QPM 11/23/12 09/02/18 Calcium Carbonate/Vitamin D3 1 tab PO DAILY 07/30/15 09/02/18 [Calcium 600-Vit D3 800 Caplet] Cholecalciferol (Vitamin D3) 1,000 unit PO DAILY 07/30/15 09/02/18 [D3-2000] Entyvio 300 mg IV .Q8W 04/07/16 09/02/18 Ondansetron [Zofran Odt] 4 mg PO TID PRN 12/05/16 09/02/18 Aripiprazole [Abilify] 10 mg PO DAILY 10/24/17 09/02/18 Modafinil [Provigil] 200 mg PO DAILY 10/24/17 09/02/18 fentaNYL 100 MCG PATCH [Duragesic 1 patch TOP Q48H 10/24/17 09/02/18 100mcg patch] - Allergies Allergies/Adverse Reactions: Allergies Allergy/AdvReac Type Severity Reaction Status Date / Time quetiapine fumarate * Allergy Intermediate Hives Verified 09/02/18 19:13 [From Seroquel] Sulfa (Sulfonamide Allergy Intermediate Hives Verified 09/02/18 19:13 Antibiotics) adalimumab [From Humira] Allergy Unknown Verified 09/02/18 19:13 Penicillins Allergy Hives Verified 09/02/18 19:13 - Social History Does the pt smoke?: Yes Smoking Status: Current every day smoker Does the pt drink ETOH?: No Does the pt have substance abuse?: Yes - Family History Family history: reports: Non contributory - Immunizations Immunizations are current?: Yes - POLST Patient has POLST: No PD ED PE NORMAL - Vitals Vital signs reviewed: Yes - General General: Alert and oriented X 3, Other (Retching Endobag, uncomfortable. There are several 100 ml of watery vomit in the bag) - HEENT HEENT: PERRL, EOMI - Neck Neck: Supple, no meningeal sign, No bony TTP - Cardiac Cardiac: RRR, No murmur - Respiratory Respiratory: No respiratory distress, Clear bilaterally - Abdomen Abdomen: Soft, Other (Mild diffuse tenderness) - Back Back: No CVA TTP, No spinal TTP - Derm Derm: Normal color, Warm and dry - Extremities Extremities: No edema, No calf tenderness / cord - Neuro Neuro: Alert and oriented X 3, Normal speech Results - Vitals Vitals: Vital Signs - 24 hr 09/02/18 09/02/18 09/02/18 18:59 20:20 21:57 Temperature 35.9 C L Heart Rate 85 87 93 Respiratory 16 16 16 Rate Blood Pressure 196/101 H 189/107 H 157/90 H O2 Saturation 97 94 92 09/02/18 22:18 Temperature Heart Rate Respiratory Rate Blood Pressure O2 Saturation 98 Oxygen O2 Source Room air - Labs Labs: Laboratory Tests 09/02/18 09/02/18 19:20 19:20 WBC 15.6 H RBC 5.40 Hgb 16.1 H Hct 50.6 H MCV 93.8 MCH 29.8 MCHC 31.8 L RDW 13.1 Plt Count 318 MPV 7.9 Neut # (Auto) 13.5 H Lymph # (Auto) 1.4 L Bond # (Auto) 0.5 Eos # (Auto) 0.2 Baso # (Auto) 0.0 Absolute Nucleated RBC 0.03 Nucleated RBC % 0.2 Sodium 136 Potassium 3.7 Chloride 101 Carbon Dioxide 21 Anion Gap 14.0 H BUN 26 H Creatinine 1.1 H Estimated GFR (MDRD) 51 L Glucose 184 H Calcium 10.0 Total Bilirubin 0.6 AST 28 ALT 24 Alkaline Phosphatase 97 Total Protein 8.6 H Albumin 4.7 Globulin 3.9 Albumin/Globulin Ratio 1.2 Lipase 34 PD MEDICAL DECISION MAKING - ED course ED course: This is a 57-year-old woman with history of Crohn's status post remote bowel Resection who presents with vomiting and abdominal pain and is found to have a bowel obstruction on CT with elevated white count and mild prerenal azotemia. The CT suggested that the bowel obstruction was due to an adhesion as opposed to active Crohn's and the case was discussed by phone with Dr. Scott Ernst the on- call surgeon who felt that she could be managed here medically with an NG tube and deferred to medicine for admission but he will consult. Spoke with Dr. Cristina for admission at 10:28 PM. Departure - Departure Disposition: 66 [facility] DC/Xfer Clinical Impression: Small bowel obstruction Condition: Stable
[2018-09-02 19:27] LABS: BASOPHILS % (AUTO) 0.2 %; EOSINOPHILS # (AUTO) 0.2 10^3/uL (0.0-0.7); HGB - HEMOGLOBIN 16.1 g/dL (12.0-16.0); LYMPHOCYTES # (AUTO) 1.4 10^3/uL (1.5-3.5); LYMPHOCYTES % (AUTO) 8.8 %; MEAN CORPUSCULAR HEMOGLOBIN 29.8 pg (27.0-31.0); MEAN CORPUSCULAR HGB CONC 31.8 g/dL (32.0-36.0); MEAN CORPUSCULAR VOLUME 93.8 fL (81.0-99.0); MEAN PLATELET VOLUME 7.9 fL (7.9-10.8); MONOCYTES # (AUTO) 0.5 10^3/uL (0.0-1.0); MONOCYTES % (AUTO) 3.3 %; NEUTROPHILS # (AUTO) 13.5 10^3/uL (1.5-6.6); NEUTROPHILS % (AUTO) 86.7 %; PLT - PLATELET COUNT 318 10^3/uL (130-450); RED CELL DISTRIBUTION WIDTH 13.1 % (12.0-15.0); WHITE BLOOD COUNT 15.6 x10^3/uL (4.8-10.8)
[2018-09-02 19:38] LABS: ALBUMIN 4.7 g/dL (3.2-5.5); ALBUMIN/GLOBULIN RATIO 1.2 (1.0-2.2); BILIRUBIN,TOTAL 0.6 mg/dL (0.2-1.0); CREATININE 1.1 mg/dL (0.4-1.0); TOTAL PROTEIN 8.6 g/dL (6.7-8.2)
[2018-09-02] MEDS ORDERED: PROMETHAZINE INJ 25 MG in SODIUM CHLORIDE 0.9% 50 ML IV STA (19:40)
[2018-09-02] MEDS ORDERED: HYDROmorphone 1 MG/ML CARPUJECT IVP STA (19:43)
[2018-09-02] MEDS ORDERED: IOVERSOL 320 50 ML VIAL ONE (19:52)
[2018-09-02] MEDS ORDERED: IOVERSOL 320 100 ML VIAL IVP ONE ×3 (19:52→21:37)
[2018-09-02] MEDS ORDERED: LACTATED RINGERS 1,000 ML IV STA (20:34)
[2018-09-02] MEDS ORDERED: IOVERSOL 320 50 ML VIAL PO ONE (21:59)
--- NOTE | 2018-09-02 22:14 | CT Report ---
Reason: IV and PO, abd pain Procedure Date: 09/02/2018 Accession Number: [id number] / [id number] Procedure: CT - Abdomen/Pelvis W/ CPT Code: FULL RESULT: EXAM: CT ABDOMEN AND PELVIS WITH CONTRAST. EXAM DATE: 09/02/2018 09:32 PM. CLINICAL HISTORY: Vomiting, history of Crohn's disease. COMPARISONS: Abdomen/pelvis with 10/24/2017 4:32 PM. TECHNIQUE: Routine helical CT imaging was performed through the abdomen and pelvis. IV contrast: Yes . Enteric contrast: No . Reconstructions: Coronal and sagittal. In accordance with CT protocol optimization, one or more of the following dose reduction techniques were utilized for this exam: automated exposure control, adjustment of mA and/or KV based on patient size, or use of iterative reconstructive technique. FINDINGS: Lung Bases: Unremarkable. Liver: Unremarkable. No suspicious masses. Gallbladder/Bile Ducts: Unremarkable post cholecystectomy. Spleen: Unremarkable. Pancreas: Unremarkable. Adrenal Glands: Unremarkable. Kidneys: Small cyst bilaterally. No suspicious masses or hydronephrosis. Peritoneal Cavity/Bowel: Mid small bowel obstruction with transition left abdomen. Distended small bowel loops appear possibly displaced into the left abdomen, raising suspicion of internal hernia. Mild mesenteric edema adjacent to the dilated loops of proximal bowel. No gross bowel wall thickening or free air. Evidence of previous ileocolic anastomosis. Pelvic Organs: Bladder, uterus, and adnexa appear unremarkable. Vasculature: No aneurysms or other significant abnormality. Bones: No significant abnormality. Other: None. IMPRESSION: 1. Mid small bowel obstruction with transition left abdomen. Distended small bowel loops appear possibly displaced into the left abdomen, raising suspicion of internal hernia. Differential would include adhesion and doubt Crohn's disease as cause of current obstruction. Mild mesenteric edema. 2. Previous cholecystectomy and ileocolic anastomosis. RADIA
[2018-09-02] MEDS ORDERED: BENZOCAINE SPRAY MM STA (22:23)
[2018-09-02] MEDS ORDERED: LIDOCAINE 2% URO-JET 5 ML SYRINGE UR STA (22:29)
[2018-09-02] MEDS ORDERED: PROCHLORPERAZINE 10 MG/2 ML VIAL IVP PRN (22:29)
[2018-09-02] MEDS ORDERED: SODIUM CHLORIDE FLUSH 0.9% 10 ML SYRINGE IVP PRN (22:29)
[2018-09-02] MEDS ORDERED: ONDANSETRON 4 MG/2 ML VIAL IVP PRN (22:29)
[2018-09-02] MEDS ORDERED: HYDROmorphone 1 MG/ML CARPUJECT IVP PRN (22:29)
[2018-09-02] MEDS ORDERED: ONDANSETRON ODT 4 MG TABLET TL PRN (22:29)
[2018-09-02] MEDS ORDERED: SODIUM CHLORIDE 0.9% 1,000 ML IV SCH (23:00)
--- NOTE | 2018-09-03 00:14 | HISTORY & PHYSICAL EXAMINATION ---
Chief Complaint - Chief Complaint Chief Complaint: Generalized abdominal pain with nausea and vomiting over the last 24 hours History of Present Illness - Admitted From Admitted From:: Home/emergency room - History Obtained From Records Reviewed: [facility] History obtained from: Patient and ER physician Exam Limitations: None - History of Present Illness HPI Comment/Other: This is a 57-year-old female who has a long history of Crohn's disease for over 2 decades and has had bowel resections for this. In the past she has been on Humira and was unresponsive. She still required a partial bowel resection on Humira. From Humira she was switched to Remicade in around 2015 she had several episodes of active flares. In July 2015 she was seen in our emergency room with a bowel obstruction from Crohn's. Transfer to [facility]. They did bowel resection. She then returned her emergency room later in July 2015 with a wound dehiscence, infection. Sent back to [facility]. No surgery needed then. She was admitted in October 2015. That flare was significant enough to result in another bowel resection in 10/2015. She was switched to Entyvio, and has been able to have reduced flares from 2015 until 2018. She sees her greeting card maker on a regular basis. In 2018 she started getting antibiotics for bronchitis, urinary tract infections, but was quiet sent with her bowel health. Then in October 24, 2017 was admitted for an episode of abdominal pain, nausea, vomiting, diarrhea. Altered mental status. She was tachycardic, temperature was normal. White cell count was 13.8 with a left shift. Lactic acid was 1.9. CT of the abdomen was negative. She was placed under observation, and stool was sent off for C. difficile because she had associated diarrhea. She was started on oral steroids. The case was discussed with her greeting card maker, Dr. Linda. She recommended Entocort for 2 weeks. She was also supposed to see a grinder tender because she was binge eating. She was also told to stop smoking. She was continued on Flagyl. She was C. difficile negative. She was seen in the emergency room March 2018 for vomiting. It was associated with significant anxiety and Ativan helped control the vomiting. She had a nontender belly with normal bowel sounds and she was sent home. She has not had any flares. No diarrhea. No fever, no chills. Minimal discomfort in her abdomen. She use to get daily cramps, daily abdominal pain. The Entyvio has really made a difference. Her main problem is chronic daily coughing from emphysema. Occasional phlegm production. Her other problem is chronic daily back pain for which she takes opioids. Then yesterday she started having mild central abdominal pain that is crescendo to be severe abdominal pain today. She is been unable to keep anything down and is been vomiting nonstop. Ambulance was called, and Dr. Mejia notes that the emesis bag was full of emesis. She had no relief with Zofran in route. She had transient hypotension. In the emergency room she was mildly hypothermic at 35.9, heart rate 85, blood pressure 186/101. CT of the abdomen shows bowel obstruction with mid small bowel obstruction with transition to the left abdomen. She has distended small bowel loops possibly displaced into the left abdomen. Suspicion of internal hernia. Mild mesenteric edema. No gross bowel wall thickening or free air. She has a previous ileocolic anastomosis. This appears to be more compatible with an adhesion but not inflammatory bowel disease as the cause of her obstruction. History - Past Medical History Cardiovascular: reports: None Respiratory: reports: Asthma, COPD. denies: Sleep apnea (She has severe insomnia and daytime fatigue. Evaluated for apnea and negative through the sleep center. ) Neuro: reports: None Endocrine/Autoimmune: reports: HyPOthyroidism GI: reports: GERD, Crohn's disease PIZZA BAKER: reports: Other ( with , unilateral salpingo-oophorectomy) : reports: Incontinence HEENT: reports: None Psych: reports: Depression, Anxiety, Bipolar disorder, Post traumatic stress disorder, Obsessive compulsive disorder Musculoskeletal: reports: Chronic back pain Derm: reports: None MRSA Hx?: Yes - Past Surgical History General: reports: Cholecystectomy, Bowel surgery /PIZZA BAKER: reports: section, Oophrectomy HEENT: reports: Tonsil/Adenoidectomy - Family & Social History Family History Comment/Other: Mom and dad in their 70s and 80s of "old age". Mom had dementia before she . 2 half siblings. She is not in contact with them. 3 children. Her middle child has severe schizophrenia and lives with her. As far she knows her older and younger child are healthy without high blood pressure, cancer, heart attack, stroke, or mental illness. Living arrangement: At home Living Situation: With spouse/s.o. (And her middle daughter who has schizophrenia) Social History Notes: She is been to the same man, 3 times. They get and the get remarried. She has not worked for quite some time because of her Crohn's disease and is disabled. She continues to smoke half a pack per day and started at the age of 15. She has no history of alcohol abuse or recreational substance abuse. - Substance History Use: Uses substance without health or social issues: Tobacco Use Issues: Other (Emphysema) Dependence: Experiences withdrawal or developed tolerances: Tobacco Dependence Issues: Withdrawal - POLST Patient has POLST: No POLST Status: Full Code Meds/Allgy - Home Medications Home Medications: Ambulatory Orders Medication Instructions Recorded Confirmed Levothyroxine Sodium [Tirosint] 200 mcg PO DAILY 11/23/12 09/02/18 lamoTRIgine [Lamictal] 200 mg PO QPM 11/23/12 09/02/18 Calcium Carbonate/Vitamin D3 1 tab PO DAILY 07/30/15 09/02/18 [Calcium 600-Vit D3 800 Caplet] Cholecalciferol (Vitamin D3) 1,000 unit PO DAILY 07/30/15 09/02/18 [D3-2000] Entyvio 300 mg IV .Q8W 04/07/16 09/02/18 Ondansetron [Zofran Odt] 4 mg PO TID PRN 12/05/16 09/02/18 Aripiprazole [Abilify] 10 mg PO DAILY 10/24/17 09/02/18 Modafinil [Provigil] 200 mg PO DAILY 10/24/17 09/02/18 fentaNYL 100 MCG PATCH [Duragesic 1 patch TOP Q48H 10/24/17 09/02/18 100mcg patch] - Allergies Allergies/Adverse Reactions: Allergies Allergy/AdvReac Type Severity Reaction Status Date / Time quetiapine fumarate * Allergy Intermediate Hives Verified 09/02/18 19:13 [From Seroquel] Sulfa (Sulfonamide Allergy Intermediate Hives Verified 09/02/18 19:13 Antibiotics) adalimumab [From Humira] Allergy Unknown Verified 09/02/18 19:13 Penicillins Allergy Hives Verified 09/02/18 19:13 Review of Systems - Constitutional Constitutional: reports: Fatigue, Malaise, Poor appetite. denies: Fever, Chills, Weakness, Diaphoresis, Night sweats - Eyes Eyes: denies: Pain, Irritation, Amaurosis, Blurred vision, Vision loss - Ears, Nose & Throat Ears, Nose & Throat: denies: Ear pain, Hearing loss, Hearing aids, Tinnitus, Vertigo, Nasal pain, Nasal discharge, Nasal obstruction, Nasal congestion, Sore throat, Hoarseness - Cardiovascular Cariovascular: reports: Lightheadedness, Exertional dyspnea, Decr. exercise to lerance. denies: Irregular heart rate, Palpitations, Chest pain, Edema, Syncope - Respiratory Respiratory: reports: Cough, Wheezing, SOB with exertion, Other (She was diagnosed with emphysema recently or rather she was told she had emphysema recently but has had it for a while) - Gastrointestinal Gastrointestinal: reports: Abdominal pain (Since yesterday), Abdominal distention (Since yesterday), Nausea, Vomiting, Bile emesis, Other (No bowel movement for 2 days). denies: Constipation, Diarrhea - Genitourinary Genitourinary: denies: Dysuria, Frequency, Urgency, Hematuria, Incontinence, Flank pain - Musculoskeletal Musculoskeletal: reports: Muscle pain, Back pain, Muscle aches, Stiffness, Joint pain - Integumentary Integumentary: denies: Rash, Pruritis, Lesions, Dryness, Lumps, Acne - Neurological Neurological: reports: Other (She has severe insomnia. She says she can go nights without any sleep. Sometimes she falls asleep just sitting down in the middle of the day. She has never fallen asleep driving her car.). denies: General weakness, Focal weakness, Headache, Dizziness, Numbness, Memory problems, Pre-existing deficit, Abnormal gait - Psychiatric Psychiatric: reports: Depression. denies: Anxiety, Suicidal - Endocrine Endocrine: denies: Polyuria, Polydypsia, Polyphagia - Hematologic/Lymphatic Hematologic/Lymphatic: reports: Anemia. denies: Bruising, Petechiae, Blood clots, Lymphadenopathy, Bleeding tendencies Prior Level of Functionality: She is independent with activities of daily living. She is not very active and that she does not exercise. 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 Pays bills. Does not use any durable medical equipment Exam - Vital Signs Vital Signs: Vital Signs x48h Temp Pulse Resp BP Pulse Ox 09/03/18 00:10 119 H 18 175/108 H 97 09/02/18 22:18 98 09/02/18 21:57 93 16 157/90 H 92 09/02/18 20:20 87 16 189/107 H 94 09/02/18 18:59 35.9 C L 85 16 196/101 H 97 - Physical Exam General Appearance: positive: Alert, Moderate distress (From abdominal pain and distention, wrenching emesis, dry heaves), Lethargic, Other (She alternates between being awake, alert, and giving me history, and in the middle of a sentence will fall asleep. At one point she is sitting forward and almost falls forward out of the bed.) Eyes Bilateral: positive: PERRL, EOMI ENT: positive: Dry mucous membranes Neck: positive: No JVD. negative: Stiff neck, Carotid bruit Respiratory: positive: Chest non-tender, No respiratory distress, Wheezes. negative: Rales, Rhonchi Cardiovascular: positive: Extrasystoles, Systolic murmur, Gallop/S4, Other (Hard knocking PMI). negative: Friction rub Peripheral Pulses: positive: 1+ Abdomen: positive: Other (Diffusely tender, with mild guarding, no rebound. No bowel sounds. Diffusely distended. No specific pinpoint area of pain.) Skin: positive: Warm, Dry, Pallor Extremities: positive: Non-tender, Full ROM, No pedal edema Neurologic/Psychiatric: positive: Oriented x3, CN's nml (2-12), Motor nml, Other Reflexes: Bicep (R): 1+, Bicep (L): 1+, Knee (R): 1+, Knee (L): 1+, Ankle (R): 0, Ankle (L): 0 Babinski Reflex: Right: Down, Left: Down Conclusion/Plan - Problem List (1) Small bowel obstruction Conclusion/Plan: Small bowel obstruction this is an unfortunate female who has known risk. She has Crohn's disease, and has had 2 small bowel resections and has an ileocolonic anastomosis. With this presentation of abrupt abdominal pain starting yesterday, she has no abdominal sounds on exam. Mild guarding. No rebound. Elevated white cell count. Hypothermic. CT indicates that this is more mechanical obstruction then inflammatory bowel disease as the cause of her obstruction. General surgery is already been consulted and asked that we admit the patient to our service. Plan: +Inpatient status because of white cell count, and severity of illness +Cipro and Flagyl since she is allergic to penicillin and I cannot do single agent Zosyn +NG to low intermittent suction +General surgery will evaluate in the morning +Antiemetics +Pain control with Dilaudid +IV fluid hydration was 0.9 normal saline +Protonix IV +Daily CBC and BMP to monitor white cell count and electrolytes on NG suction (2) Crohn disease Conclusion/Plan: Again, while she has a small bowel obstruction we do not think the small bowel obstruction is from her Crohn's. She does not appear to be in a flare situation. She is still on Entyvio. She says she is no longer on anterior cord. Plan: We will talk to her greeting card maker tomorrow morning. At this time no steroids. Qualifiers: Gastrointestinal tract location: small intestine Digestive disease complication type: with intestinal obstruction Qualified Code(s): K50.012 - Crohn's disease of small intestine with intestinal obstruction (3) Dehydration Conclusion/Plan: She has not had any p.o. intake for a day. Nonstop vomiting. And now we are pulling out even more gastric fluid with NG suction. I anticipate low potassium, dehydration, and have started IV fluids, proton pump inhibitor. Plan: Reassess abrupt rise in creatinine tomorrow morning with BMP. Her baseline creatinine is 0.7-0.8 (4) Depression with anxiety Conclusion/Plan: She is on Abilify, Lamictal, Provigil for her symptomatology. She will get significant anxiety in reviewing the medical record. Right now she is n.p.o. Plan: Ativan as needed Resume her medications as soon as she is able to take p.o. (5) Hypothyroidism Conclusion/Plan: Last TSH in September 2017 was very, very suppressed at less than 0.18. Plan: Recheck TSH Qualifiers: Hypothyroidism type: acquired Qualified Code(s): E03.9 - Hypothyroidism, unspecified (6) Chronic pain syndrome Conclusion/Plan: She has a fentanyl patch listed on her med list. During her stay she will be getting IV Dilaudid. Plan: Remove fentanyl patch, use Dilaudid as needed and over to avoid oversedation, respiratory depression and hypercapnia. (7) Polycythemia Conclusion/Plan: This woman is dehydrated so she may be hemoconcentrated with loss of free water in her serum. She also is a smoker. Plan +Repeat CBC in morning to assess IV fluids effect +Check carbon monoxide level +If she continues to have elevated hemoglobin and hematocrit, consider Sherman 2 mutation check (8) Tobacco abuse Conclusion/Plan: nicotine patch prn - Lab Results Fish Bones: 09/02/18 19:20 09/02/18 19:20 - Diagnostic Imaging Results Diagnostic Imaging Results: positive: Final report reviewed, Other (Chest x-ray was look for for NG placement. Dr. Chaudhari feels that NG is in place because bile has come out. 150 cc was removed in the ER, and on MedSurg low intermittent suction has resulted in immediate yellow ascitic drainage.) Diagnostic Imaging Results Comments: CT of the abdomen shows bowel obstruction with mid small bowel obstruction with transition to the left abdomen. She has distended small bowel loops possibly displaced into the left abdomen. Suspicion of internal hernia. Mild mesenteric edema. No gross bowel wall thickening or free air. She has a previous ileocolic anastomosis. This appears to be more compatible with an adhesion but not inflammatory bowel disease as the cause of her obstruction. Core Measures - Anticipated LOS I expect patient to be DC'd or transferred within 96 hours.: Yes - DVT/VTE - Prophylaxis VTE/DVT Device ordered at admit?: Yes
[2018-09-03] MEDS: CIPROFLOXACIN 400 MG/200 ML 200 ML IV SCH ×2 (01:19→11:08)
[2018-09-03] MEDS ORDERED: LORazepam 2 MG/ML VIAL IVP PRN (01:26)
[2018-09-03] MEDS ORDERED: PHENOL THROAT SPRAY 177 ML MM PRN (01:44)
[2018-09-03] MEDS: SODIUM CHLORIDE FLUSH 0.9% 10 ML SYRINGE IVP SCH ×3 (02:32→16:43)
[2018-09-03 05:13] LABS: BASOPHILS % (AUTO) 0.2 %; HGB - HEMOGLOBIN 13.5 g/dL (12.0-16.0); LYMPHOCYTES # (AUTO) 0.4 10^3/uL (1.5-3.5); MEAN CORPUSCULAR HEMOGLOBIN 30.9 pg (27.0-31.0); MEAN CORPUSCULAR HGB CONC 33.7 g/dL (32.0-36.0); MEAN CORPUSCULAR VOLUME 91.7 fL (81.0-99.0); MEAN PLATELET VOLUME 7.9 fL (7.9-10.8); MONOCYTES # (AUTO) 0.4 10^3/uL (0.0-1.0); MONOCYTES % (AUTO) 4.7 %; NEUTROPHILS # (AUTO) 8.7 10^3/uL (1.5-6.6); NEUTROPHILS % (AUTO) 91.1 %; PLT - PLATELET COUNT 254 10^3/uL (130-450); RED BLOOD COUNT 4.35 10^6/uL (4.20-5.40); RED CELL DISTRIBUTION WIDTH 13.3 % (12.0-15.0); WHITE BLOOD COUNT 9.5 x10^3/uL (4.8-10.8)
[2018-09-03 05:27] LABS: CALCIUM 8.7 mg/dL (8.5-10.3); CREATININE 0.9 mg/dL (0.4-1.0)
[2018-09-03] MEDS ORDERED: PANTOPRAZOLE 40 MG VIAL IVP SCH (07:00)
[2018-09-03] MEDS: NICOTINE 7 MG PATCH TOP SCH (09:21)
[2018-09-03] MEDS: POLYETHYLENE GLYCOL 3350 17 GM PACKET PO SCH (09:22)
--- NOTE | 2018-09-03 09:46 | XRAY Report ---
Reason: NGT placement. f/u SBO Procedure Date: 09/03/2018 Accession Number: [id number] / [id number] Procedure: XR - Abdomen 1 View X-Ray CPT Code: 04287 FULL RESULT: EXAM: ABDOMEN RADIOGRAPHY EXAM DATE: 09/03/2018 09:35 AM. CLINICAL HISTORY: NG tube placement COMPARISON: ABDOMEN ACUTE 03/21/2013 12:39 PM ABDOMEN/PELVIS W/ 09/02/2018 9:17 PM. TECHNIQUE: 1 view. FINDINGS: Bowel Gas Pattern: Gas and stool in the rectum. Gas and stool in the colon. Mildly distended small bowel loop over the left midabdomen measures 4.0 cm Other: Cholecystectomy clips. NG tube with the tip in the gastric fundus. IMPRESSION: 1. NG tube tip is in the gastric fundus. 2. Gas-distended small bowel in the left midabdomen RADIA
[2018-09-03] MEDS ORDERED: fentaNYL 100 MCG PATCH TOP SCH (11:00)
[2018-09-03] MEDS ORDERED: metroNIDAZOLE 500 MG/100 ML 500 MG/100 ML BAG IV SCH ×2 (11:00)
[2018-09-03] MEDS ORDERED: ACETAMINOPHEN 325 MG TABLET PO PRN (14:43)
--- NOTE | 2018-09-03 14:59 | PROVIDER PROGRESS NOTE ---
Subjective - Prog Note Date Prog Note Date: 09/03/18 Prog Note Time: 07:00 - Subjective Subjective: Patient reports feeling better She wants to go home WBC resolved Patient passing gas and had a bowel movement Current Medications - Current Medications Current Medications: Acetaminophen (Tylenol) 650 mg PO Q4HR PRN PRN Reason: Pain or Fever > 38C (100.4F) Fentanyl (Duragesic) 1 patch TOP Q3D [facility] Last Admin: 09/03/18 11:05 Dose: 1 patch Hydromorphone HCl (Dilaudid Inj Carp) 1 mg IVP Q2HR PRN PRN Reason: Pain 8 to 10 Last Admin: 09/03/18 00:46 Dose: 1 mg Lorazepam (Ativan Inj (Vial)) 0.5 mg IVP Q2H PRN PRN Reason: Anxiety Nicotine (Nicoderm) 1 patch TOP DAILY [facility] Last Admin: 09/03/18 09:21 Dose: 1 patch Ondansetron HCl (Zofran Inj) 4 mg IVP Q6HR PRN PRN Reason: Nausea / Vomiting Last Admin: 09/03/18 00:44 Dose: 4 mg Ondansetron HCl (Zofran Odt) 4 mg TL Q6HR PRN PRN Reason: Nausea / Vomiting Pantoprazole Sodium (Protonix) 40 mg IVP QDAC [facility] Last Admin: 09/03/18 06:27 Dose: 40 mg Phenol/Menthol (Chloraseptic) 0 sprays MM Q2HR PRN PRN Reason: Throat Pain Polyethylene Glycol (Miralax) 17 gm PO DAILY [facility] Last Admin: 09/03/18 09:22 Dose: Not Given Prochlorperazine Edisylate (Compazine Inj) 10 mg IVP Q6HR PRN PRN Reason: Nausea / Vomiting Last Admin: 09/03/18 02:32 Dose: 10 mg Sodium Chloride (Normal Saline Flush 0.9%) 10 ml IVP PRN PRN PRN Reason: NEEDED PER PROVIDER ORDERS Last Admin: 09/03/18 06:27 Dose: 10 ml Sodium Chloride (Normal Saline Flush 0.9%) 10 ml IVP 0100,0900,1700 [facility] Last Admin: 09/03/18 09:23 Dose: Not Given Home Medications: Calcium Carbonate/Vitamin D3 [Calcium 600-Vit D3 800 Caplet] 1 tab PO DAILY 07/30/15 Cholecalciferol (Vitamin D3) [D3-2000] 1,000 unit PO DAILY 07/30/15 Entyvio 300 mg IV .Q8W 04/07/16 Ondansetron [Zofran Odt] 4 mg PO TID PRN 12/05/16 fentaNYL 100 MCG PATCH [Duragesic 100mcg patch] 1 patch TOP Q48H 10/24/17 ARIPiprazole [Aripiprazole] 20 mg PO DAILY 09/03/18 Ketamine HCl 25 mg PO TID 09/03/18 Lamotrigine [Lamotrigine ER] 200 mg PO QPM 09/03/18 Levothyroxine Sodium 200 mcg PO QDAC 09/03/18 Methylphenidate HCl [Methylphenidate ER] 20 mg PO TID 09/03/18 Topiramate [Topamax] 25 mg PO BID 09/03/18 Venlafaxine HCl 50 mg PO TID 09/03/18 clonazePAM [Clonazepam] 0.5 mg PO BID 09/03/18 Objective - Vital Signs/Intake & Output Reviewed Vital Signs: Yes Vital Signs: Vital Signs x48h Temp Pulse Resp BP Pulse Ox 09/03/18 08:00 37.0 C 76 18 117/63 94 Intake & Output: Intake & Output 08/31/18 09/01/18 09/02/18 09/03/18 23:59 23:59 23:59 23:59 Intake Total 1051 1475 Output Total 1650 Balance 1051 -175 - Objective General Appearance: positive: No acute distress, Alert (Sitting up in bed.) Eyes Bilateral: positive: Normal inspection, PERRL ENT: positive: Dry mucous membranes Neck: positive: Nml inspection, Trachea midline Respiratory: positive: No respiratory distress, Breath sounds nml. negative: Wheezes, Rales, Rhonchi Cardiovascular: positive: Regular rate & rhythm. negative: No murmur, No gallop, Tachycardia Peripheral Pulses: 2+ Dorsalis pedis (R), 2+ Dorsalis pedis (L) Abdomen: positive: Nml bowel sounds, Tenderness (slight diffuse tenderness to palpation). negative: Guarding, Rebound Skin: positive: Warm, Dry Extremities: positive: Non-tender, Full ROM Neurologic/Psychiatric: positive: Oriented x3, CN's nml (2-12), Motor nml, Sensation nml, Mood/affect nml - Lab Results Fish Bones: 09/03/18 04:13 09/03/18 04:13 Other Labs: Lab Results x24hrs 09/03/18 09/03/18 09/03/18 Range/Units 09:28 04:13 04:13 WBC (4.8-10.8) x10^3/uL RBC (4.20-5.40) 10^6/uL Hgb (12.0-16.0) g/dL Hct (37.0-47.0) % MCV (81.0-99.0) fL MCH (27.0-31.0) pg MCHC (32.0-36.0) g/dL RDW (12.0-15.0) % Plt Count (130-450) 10^3/uL MPV (7.9-10.8) fL Neut # (Auto) (1.5-6.6) 10^3/uL Lymph # (Auto) (1.5-3.5) 10^3/uL [place] # (Auto) (0.0-1.0) 10^3/uL Eos # (Auto) (0.0-0.7) 10^3/uL Baso # (Auto) (0.0-0.1) 10^3/uL Absolute Nucleated RBC x10^3/uL Nucleated RBC % /100WBC Sodium 140 (135-145) mmol/L Potassium 3.8 (3.5-5.0) mmol/L Chloride 107 (101-111) mmol/L Carbon Dioxide 22 (21-32) mmol/L Anion Gap 11.0 (6-13) BUN 24 H (6-20) mg/dL Creatinine 0.9 (0.4-1.0) mg/dL Estimated GFR (MDRD) 64 L (>89) Glucose 131 H (70-100) mg/dL Calcium 8.7 (8.5-10.3) mg/dL Total Bilirubin (0.2-1.0) mg/dL AST (10-42) IU/L ALT (10-60) IU/L Alkaline Phosphatase (42-121) IU/L Total Protein (6.7-8.2) g/dL Albumin (3.2-5.5) g/dL Globulin (2.1-4.2) g/dL Albumin/Globulin Ratio (1.0-2.2) Lipase (22-51) U/L TSH 0.82 (0.34-5.60) uIU/mL Nasal Screen MRSA (PCR) NEGATIVE (NEGATIVE) 09/03/18 09/02/18 09/02/18 Range/Units 04:13 19:20 19:20 WBC 9.5 15.6 H (4.8-10.8) x10^3/uL RBC 4.35 5.40 (4.20-5.40) 10^6/uL Hgb 13.5 16.1 H (12.0-16.0) g/dL Hct 39.9 50.6 H (37.0-47.0) % MCV 91.7 93.8 (81.0-99.0) fL MCH 30.9 29.8 (27.0-31.0) pg MCHC 33.7 31.8 L (32.0-36.0) g/dL RDW 13.3 13.1 (12.0-15.0) % Plt Count 254 318 (130-450) 10^3/uL MPV 7.9 7.9 (7.9-10.8) fL Neut # (Auto) 8.7 H 13.5 H (1.5-6.6) 10^3/uL Lymph # (Auto) 0.4 L 1.4 L (1.5-3.5) 10^3/uL [place] # (Auto) 0.4 0.5 (0.0-1.0) 10^3/uL Eos # (Auto) 0.0 0.2 (0.0-0.7) 10^3/uL Baso # (Auto) 0.0 0.0 (0.0-0.1) 10^3/uL Absolute Nucleated RBC 0.00 0.03 x10^3/uL Nucleated RBC % 0.0 0.2 /100WBC Sodium 136 (135-145) mmol/L Potassium 3.7 (3.5-5.0) mmol/L Chloride 101 (101-111) mmol/L Carbon Dioxide 21 (21-32) mmol/L Anion Gap 14.0 H (6-13) BUN 26 H (6-20) mg/dL Creatinine 1.1 H (0.4-1.0) mg/dL Estimated GFR (MDRD) 51 L (>89) Glucose 184 H (70-100) mg/dL Calcium 10.0 (8.5-10.3) mg/dL Total Bilirubin 0.6 (0.2-1.0) mg/dL AST 28 (10-42) IU/L ALT 24 (10-60) IU/L Alkaline Phosphatase 97 (42-121) IU/L Total Protein 8.6 H (6.7-8.2) g/dL Albumin 4.7 (3.2-5.5) g/dL Globulin 3.9 (2.1-4.2) g/dL Albumin/Globulin Ratio 1.2 (1.0-2.2) Lipase 34 (22-51) U/L TSH (0.34-5.60) uIU/mL Nasal Screen MRSA (PCR) (NEGATIVE) Assessment/Plan - Problem List (1) Small bowel obstruction Impression: She has Crohn's disease, and has had 2 small bowel resections and has an ileocolonic anastomosis. CT indicated that this is more mechanical obstruction then inflammatory bowel disease as the cause of her obstruction. General surgery was consulted. The patient has since passed gas and had a bowel movement. Plan: d/c сергей and [facility] general surgery evaluated remove NGT trial clear liquid diet (2) Crohn disease Impression: Again, while she has a small bowel obstruction, it is not from her Crohn's. She does not appear to be in a flare situation. She is still on Entyvio, due for her next infusion on 09/07/2018 Plan: follow-up with [facility] outpatient Qualifiers: Gastrointestinal tract location: small intestine Digestive disease complication type: with intestinal obstruction Qualified Code(s): K50.012 - Crohn's disease of small intestine with intestinal obstruction (3) Dehydration Impression: She received hydration via IV fluids. Her IV infiltrated with nursing unable to replace her IV. Her NG tube has been removed. SCr and BUN have improved slightly. Plan: trial clear liquids follow-up labs in the morning (4) Depression with anxiety Impression: She is on Abilify, Lamictal, Provigil for her symptomatology. She will get significant anxiety in reviewing the medical record. Plan: Ativan as needed Resume her medications as soon as she is able to take p.o. -- likely tomorrow since he is trialing clear liquids today (5) Hypothyroidism Impression: Last TSH in September 2017 was very, very suppressed at less than 0.18. TSH today 0.82 Plan: resume home levothyroxine tomorrow Qualifiers: Hypothyroidism type: acquired Qualified Code(s): E03.9 - Hypothyroidism, u nspecified (6) Chronic pain syndrome Impression: She has a fentanyl patch listed on her med list. Patient would like her fentanyl patch replaced Plan: replace fentanyl patch (7) Polycythemia, resolved Impression: Her H&H was elevated 2/2 dehydration. Her H&H is now wnl. (8) Tobacco abuse Conclusion/Plan: nicotine patch prn
--- NOTE | 2018-09-03 17:05 | CONSULTATION NOTE ---
Referring Provider Name of Referring Provider:: Dr. Cristina Consult Date: 09/03/18 Chief Complaint - Chief Complaint Chief Complaint: abd pain History of Present Illness - Admitted From Admitted From:: ER - History Obtained From Records Reviewed: yes History obtained from: pt, records Exam Limitations: none - History of Present Illness HPI Comment/Other: 57 yo female with hx of Crohn's disease, s/p ileocecectomy for same, and also hx multiple prior abdominal surgeries, including c/section, unilateral salpingo- oophorectomy and cholecystectomy, who presented to the ER last night with 1-2 days of crampy periumbilical abdominal pains, nausea and vomiting, associated with decreased flatus and stool per rectum. No fever/chills, diarrhea, melena, hematochezia, hematemesis, wt loss. She believes the sx began after eating a bowl of popcorn, something she usually avoids. Multiple prior ER visits and admissions for abdominal pain, some of which were thought to be exacerbations of Crohn's disease. Evaluation in the ER last night included a CT of the abd/pelvis which showed dilated loops of mid small bowel with air fluid levels and decreased caliber loops of distal small bowel c/w SBO, and with no evidence of recurrent Crohn's disease. Her abdomen was benign, her labs were benign, an NG tube was inserted and she was admitted for bowel rest, serial exams, and surgical consultation. Today she reports that her abd pain has resolved, she is passing flatus and stool per rectum, and she no longer is nauseated. Her NG has drained approximately 1000 ml over the past 12 hours or so since insertion. History - Past Medical History Cardiovascular: reports: None Respiratory: reports: Asthma, COPD. denies: Sleep apnea (She has severe insomnia and daytime fatigue. Evaluated for apnea and negative through the sleep center. ) Neuro: reports: None Endocrine/Autoimmune: reports: HyPOthyroidism GI: reports: GERD, Crohn's disease LAB COORDINATOR: reports: Other ( with , unilateral salpingo-oophorectomy) : reports: Incontinence HEENT: reports: None Psych: reports: Depression, Anxiety, Bipolar disorder, Post traumatic stress disorder, Obsessive compulsive disorder Musculoskeletal: reports: Chronic back pain Derm: reports: None MRSA Hx?: Yes - Past Surgical History General: reports: Cholecystectomy, Bowel surgery /LAB COORDINATOR: reports: section, Oophrectomy HEENT: reports: Tonsil/Adenoidectomy Derm: reports: Skin cancer surgery Other past surgical history: She is been to the same man, 3 times. They get and the get remarried. She has not worked for quite some time because of her Crohn's disease and is disabled. She continues to smoke half a pack per day and started at the age of 15. She has no history of alcohol abuse or recreational substance abuse. - Family & Social History Family History Comment/Other: Mom and dad in their 70s and 80s of "old age". Mom had dementia before she . 2 half siblings. She is not in contact with them. 3 children. Her middle child has severe schizophrenia and lives with her. As far she knows her older and younger child are healthy without high blood pressure, cancer, heart attack, stroke, or mental illness. Living arrangement: At home Living Situation: With spouse/s.o. (And her middle daughter who has schizophrenia) Social History Notes: She is been to the same man, 3 times. They get and the get remarried. She has not worked for quite some time because of her Crohn's disease and is disabled. She continues to smoke half a pack per day and started at the age of 15. She has no history of alcohol abuse or recreational substance abuse. - Substance History Use: Uses substance without health or social issues: Tobacco Use Issues: Other (Emphysema) Dependence: Experiences withdrawal or developed tolerances: Tobacco Dependence Issues: Withdrawal - POLST Patient has POLST: No POLST Status: Full Code Meds/Allgy - Home Medications Home Medications: Ambulatory Orders Medication Instructions Recorded Confirmed Calcium Carbonate/Vitamin D3 1 tab PO DAILY 07/30/15 09/02/18 [Calcium 600-Vit D3 800 Caplet] Cholecalciferol (Vitamin D3) 1,000 unit PO DAILY 07/30/15 09/02/18 [D3-2000] Entyvio 300 mg IV .Q8W 04/07/16 09/02/18 Ondansetron [Zofran Odt] 4 mg PO TID PRN 12/05/16 09/02/18 fentaNYL 100 MCG PATCH [Duragesic 1 patch TOP Q48H 10/24/17 09/02/18 100mcg patch] ARIPiprazole [Aripiprazole] 20 mg PO DAILY 09/03/18 09/03/18 Ketamine HCl 25 mg PO TID 09/03/18 09/03/18 Lamotrigine [Lamotrigine ER] 200 mg PO QPM 09/03/18 09/03/18 Levothyroxine Sodium 200 mcg PO QDAC 09/03/18 09/03/18 Methylphenidate HCl 20 mg PO TID 09/03/18 09/03/18 [Methylphenidate ER] Topiramate [Topamax] 25 mg PO BID 09/03/18 09/03/18 Venlafaxine HCl 50 mg PO TID 09/03/18 09/03/18 clonazePAM [Clonazepam] 0.5 mg PO BID 09/03/18 09/03/18 - Allergies Allergies/Adverse Reactions: Allergies Allergy/AdvReac Type Severity Reaction Status Date / Time quetiapine fumarate * Allergy Intermediate Hives Verified 09/02/18 19:13 [From Seroquel] Sulfa (Sulfonamide Allergy Intermediate Hives Verified 09/02/18 19:13 Antibiotics) adalimumab [From Humira] Allergy Unknown Verified 09/02/18 19:13 Penicillins Allergy Hives Verified 09/02/18 19:13 Review of Systems - Constitutional Constitutional: denies: Fever, Chills, Weight gain, Weight loss - Gastrointestinal Gastrointestinal: reports: Abdominal pain, Abdominal distention, Change in bowel habits, Nausea, Vomiting, Bile emesis, Reflux/heartburn, Bloating. denies: Constipation, Diarrhea, Rectal bleeding, Black stools, Bloody stools, Frederic blood emesis, Coffee grounds emesis, Poor appetite Exam - Vital Signs Reviewed Vital Signs: Yes Vital Signs: Vital Signs x48h Temp Pulse Resp BP Pulse Ox 09/03/18 15:43 37.0 C 75 14 144/74 H 96 - Physical Exam General Appearance: positive: No acute distress, Alert Eyes Bilateral: positive: No scleral icterus ENT: positive: ENT inspection nml, Pharynx nml, No signs of dehydration Neck: positive: No JVD, Trachea midline. negative: Lymphadenopathy (R), Lymphadenopathy (L) Respiratory: positive: Chest non-tender, No respiratory distress, Breath sounds nml. negative: Wheezes, Rales, Rhonchi Cardiovascular: positive: Regular rate & rhythm, No murmur, No gallop, Irregularly irregular Abdomen: positive: Non-tender, No organomegaly, Nml bowel sounds, No distention. negative: Tenderness, Guarding, Rebound, Hepatomegaly, Splenomegaly, Mass Skin: positive: Color nml, No rash, Warm, Dry Extremities: positive: No pedal edema. negative: Calf tenderness Neurologic/Psychiatric: positive: Oriented x3 Conclusion/Plan - Diagnosis Diagnosis: SBO most likely due to adhesions, clinically resolving now with short period of bowel rest, NG suction, IVG. No evidence of recurrent Crohn's at present; no evidence of acute abdomen or strangulation obstruction. - Plan Plan: Would d/c NG tube and start clear liquid diet. Advance as tolerated to low insoluble fiber diet. Will follow. Thanks, - Lab Results Lab results reviewed: Yes Fish Bones: 09/03/18 04:13 09/03/18 04:13 Other Lab Results: LFTs, lipase nl. - Diagnostic Imaging Results Diagnostic Imaging Results: positive: Final report reviewed, Read independently Diagnostic Imaging Results Comments: see HPI; KUB today: solitary loop of mildly dilated small kraig; lots of gas/stool in colon.
[2018-09-03] MEDS: IPRATROPIUM/ALBUTEROL 3 ML NEB INH SCH ×2 (17:34→20:39)
[2018-09-03] MEDS: clonazePAM 0.5 MG TABLET PO PRN ×2 (18:00→21:07)
[2018-09-04] MEDS ORDERED: BENZOCAINE/MENTHOL LOZENGE MM PRN (03:25)
[2018-09-04 05:40] LABS: BASOPHILS % (AUTO) 0.1 %; EOSINOPHILS # (AUTO) 0.1 10^3/uL (0.0-0.7); EOSINOPHILS % (AUTO) 1.3 %; HGB - HEMOGLOBIN 11.9 g/dL (12.0-16.0); LYMPHOCYTES # (AUTO) 0.8 10^3/uL (1.5-3.5); MEAN CORPUSCULAR HEMOGLOBIN 30.7 pg (27.0-31.0); MEAN CORPUSCULAR HGB CONC 33.1 g/dL (32.0-36.0); MEAN CORPUSCULAR VOLUME 92.7 fL (81.0-99.0); MEAN PLATELET VOLUME 7.7 fL (7.9-10.8); MONOCYTES # (AUTO) 0.6 10^3/uL (0.0-1.0); MONOCYTES % (AUTO) 5.5 %; NEUTROPHILS # (AUTO) 8.8 10^3/uL (1.5-6.6); NEUTROPHILS % (AUTO) 85.1 %; PLT - PLATELET COUNT 224 10^3/uL (130-450); RED BLOOD COUNT 3.86 10^6/uL (4.20-5.40); RED CELL DISTRIBUTION WIDTH 13.1 % (12.0-15.0); WHITE BLOOD COUNT 10.3 x10^3/uL (4.8-10.8)
[2018-09-04 06:01] LABS: CALCIUM 8.3 mg/dL (8.5-10.3); CREATININE 0.7 mg/dL (0.4-1.0)
[2018-09-04] MEDS ORDERED: PANTOPRAZOLE 40 MG TABLET PO SCH (07:00)
[2018-09-04] MEDS: IPRATROPIUM/ALBUTEROL 3 ML NEB INH SCH (07:30)
[2018-09-04] MEDS ORDERED: POTASSIUM CHLORIDE 20 MEQ TABLET PO ONE (08:00)
--- NOTE | 2018-09-04 08:26 | PROVIDER PROGRESS NOTE ---
Assessment/Plan - Problem List (1) Small bowel obstruction Assessment/Plan: clinically resolving; rec: advance diet to full liquid and if tolerates well, ok for d/c home on diet low in insoluble fiber. 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 - Current Meds Current Meds: Current Medications Generic Name Dose Route Start Last Admin Trade Name Freq PRN Reason Stop Dose Admin Acetaminophen 650 mg 09/03/18 14:43 09/04/18 04:38 Tylenol PO 650 mg Q4HR PRN Administration Pain or Fever > 38C (100.4F) Albuterol/Ipratropium 3 ml 09/03/18 16:00 09/04/18 07:30 Duoneb INH Not Given RTQID JENNY Clonazepam 0.5 mg 09/03/18 17:17 09/03/18 21:07 Klonopin PO 0.5 mg BID PRN Administration Anxiety Fentanyl 1 patch 09/03/18 11:00 09/03/18 11:05 Duragesic TOP 1 patch Q3D JENNY Administration Nicotine 1 patch 09/03/18 09:00 09/03/18 09:21 Nicoderm TOP 1 patch DAILY JENNY Administration Pantoprazole Sodium 40 mg 09/04/18 07:00 09/04/18 06:24 Protonix PO 40 mg QDAC JENNY Administration Polyethylene Glycol 17 gm 09/03/18 09:00 09/03/18 09:22 Miralax PO Not Given DAILY JENNY Throat Lozenges 1 lozenge 09/04/18 03:25 09/04/18 05:47 Cepacol MM 1 lozenge Q2HR PRN Administration Throat pain - Lab Result Fish Bone Diagrams: 09/04/18 04:55 09/04/18 05:45 - Additional Planning Condition/Complexity: Improved Plan Discussed with:: Patient, Other (hospitalist) Time Spent: 15-30 minutes Subjective - Subjective Patient Reports: Feeling Better (Hungry; no N/V, tolerated clear liquids well yesterday; passing flatus and stool; no abd pain.), Resting Comfortably, No Complaints Objective Vital Signs: Vital Signs - 24 hr 09/03/18 09/03/18 09/03/18 15:43 17:35 20:39 Temperature 37.0 C Heart Rate 92 78 Heart Rate [ 75 Brachial] Respiratory 14 12 18 Rate Blood Pressure 144/74 H [Right Brachial artery] O2 Saturation 96 09/03/18 09/04/18 23:55 07:30 Temperature 36.4 C L Heart Rate 84 Heart Rate [ 63 Brachial] Respiratory 16 14 Rate Blood Pressure 121/60 [Right Brachial artery] O2 Saturation 98 Oxygen O2 Source Room air I&O (Last 24 Hrs): Intake and Output Totals x24h 09/02/18 09/03/18 09/04/18 23:59 23:59 23:59 Intake Total 1051 3060 540 Output Total 1650 Balance 1051 1410 540 General: Alert, Oriented x3, Cooperative Neuro: Alert Abdomen: Soft, No tenderness, No hepatospenomegaly, No masses, Other (high pitched, hyperactive bowel tones) Extremities: No edema, No tenderness/swelling - Results Results: Laboratory Results WBC 10.3 x10^3/uL (4.8-10.8) 09/04/18 04:55 RBC 3.86 10^6/uL (4.20-5.40) L 09/04/18 04:55 Hgb 11.9 g/dL (12.0-16.0) L 09/04/18 04:55 Hct 35.8 % (37.0-47.0) L 09/04/18 04:55 MCV 92.7 fL (81.0-99.0) 09/04/18 04:55 MCH 30.7 pg (27.0-31.0) 09/04/18 04:55 MCHC 33.1 g/dL (32.0-36.0) 09/04/18 04:55 RDW 13.1 % (12.0-15.0) 09/04/18 04:55 Plt Count 224 10^3/uL (130-450) 09/04/18 04:55 MPV 7.7 fL (7.9-10.8) L 09/04/18 04:55 Neut # (Auto) 8.8 10^3/uL (1.5-6.6) H 09/04/18 04:55 Lymph # (Auto) 0.8 10^3/uL (1.5-3.5) L 09/04/18 04:55 [place] # (Auto) 0.6 10^3/uL (0.0-1.0) 09/04/18 04:55 Eos # (Auto) 0.1 10^3/uL (0.0-0.7) 09/04/18 04:55 Baso # (Auto) 0.0 10^3/uL (0.0-0.1) 09/04/18 04:55 Absolute Nucleated RBC 0.01 x10^3/uL 09/04/18 04:55 Nucleated RBC % 0.1 /100WBC 09/04/18 04:55 Sodium 134 mmol/L (135-145) L 09/04/18 05:45 Potassium 3.3 mmol/L (3.5-5.0) L 09/04/18 05:45 Chloride 101 mmol/L (101-111) 09/04/18 05:45 Carbon Dioxide 25 mmol/L (21-32) 09/04/18 05:45 Anion Gap 8.0 (6-13) 09/04/18 05:45 BUN 18 mg/dL (6-20) 09/04/18 05:45 Creatinine 0.7 mg/dL (0.4-1.0) 09/04/18 05:45 Estimated GFR (MDRD) 86 (>89) L 09/04/18 05:45 Glucose 114 mg/dL (70-100) H 09/04/18 05:45 Calcium 8.3 mg/dL (8.5-10.3) L 09/04/18 05:45 Total Bilirubin 0.6 mg/dL (0.2-1.0) 09/02/18 19:20 AST 28 IU/L (10-42) 09/02/18 19:20 ALT 24 IU/L (10-60) 09/02/18 19:20 Alkaline Phosphatase 97 IU/L (42-121) 09/02/18 19:20 Total Protein 8.6 g/dL (6.7-8.2) H 09/02/18 19:20 Albumin 4.7 g/dL (3.2-5.5) 09/02/18 19:20 Globulin 3.9 g/dL (2.1-4.2) 09/02/18 19:20 Albumin/Globulin Ratio 1.2 (1.0-2.2) 09/02/18 19:20 Lipase 34 U/L (22-51) 09/02/18 19:20 TSH 0.82 uIU/mL (0.34-5.60) 09/03/18 04:13 Nasal Screen MRSA (PCR) NEGATIVE (NEGATIVE) 09/03/18 09:28 - Procedures Procedures: Procedures VENOUS CATHETERIZATION NEC (12/10/13) ABX Reporting Has patient been on IV antibiotics over the past 48 hours?: No
[2018-09-04 08:31] VITALS: BP 117/66
[2018-09-04] MEDS ORDERED: VENLAFAXINE 37.5 MG TABLET PO SCH (09:00)
[2018-09-04] MEDS ORDERED: METHYLPHENIDATE 10 MG TABLET PO SCH (09:00)
[2018-09-04] MEDS ORDERED: TOPIRAMATE 25 MG TABLET PO SCH (09:00)
[2018-09-04] MEDS ORDERED: ARIPiprazole 5 MG TABLET PO SCH (09:00)
[2018-09-04] MEDS: NICOTINE 7 MG PATCH TOP SCH (09:25)
--- NOTE | 2018-09-04 10:10 | Discharge Plan ---
Discharge Plan Disposition: 01 Home, Self Care Condition: Good Diet: Regular (low insoluble fiber. Avoid raw vegetable and nuts. Cooked vegetables are OK) Activity Restrictions: No Restrictions Weight Bearing: Full Weight Additional Instructions or Follow Up instructions: You were admitted for a small bowel obstruction. Your small bowel obstruction improved and you were able to have multiple bowel movements and tolerate liquids. You are being sent home on a low insoluble fiber diet. Avoid raw vegetables and nuts. Cooked vegetables are OK. Follow-up with your order clerk and primary care provider within 7-10 days. If you developed sudden onset abdominal pain, nausea/vomiting, abdominal distension, unable to pass gas or have a bowel movement, please seek immediate medical attention. No Smoking: If you smoke, Please STOP! Call for help. Follow-up with: Addi Landeros DO [Primary Care Provider] -
--- NOTE | 2018-09-04 10:10 | DISCHARGE SUMMARY ---
"Discharge Summary Admit Date: 09/02/18 Discharge Date: 09/04/18 Discharging Provider: Sandrine EDWARDS Primary Care Provider: Dr. Addi Landeros Code Status: Attempt Resuscitation Condition at Discharge: Good Discharge Disposition: 01 Home, Self Care - DIAGNOSES Admission Diagnoses: Small bowel obstruction Crohns disease Dehydration Depression with anxiety Hypothyroidism Chronic pain syndrome Polycythemia Tobacco abuse Discharge Diagnoses with Status of Each Condition: Small bowel obstruction, resolving Crohn disease, stable Dehydration, resolved Depression with anxiety, stable Hypothyroidism, stable Chronic pain syndrome, stable Polycythemia, resolved Tobacco abuse, ongoing - HPI History of Present Illness: Per Dr. Becca Cristina's H&P completed 09/02/2018: 'This is a 57-year-old female who has a long history of Crohn's disease for over 2 decades and has had bowel resections for this. In the past she has been on Humira and was unresponsive. She still required a partial bowel resection on Humira. From Humira she was switched to Remicade in around 2015 she had several episodes of active flares. In July 2015 she was seen in our emergency room with a bowel obstruction from Crohn's. Transfer to [facility]. They did bowel resection. She then returned her emergency room later in July 2015 with a wound dehiscence, infection. Sent back to [facility]. No surgery needed then. She was admitted in October 2015. That flare was significant enough to result in another bowel resection in 10/2015. She was switched to Entyvio, and has been able to have reduced flares from 2015 until 2018. She sees her school attendance secretary on a regular basis. In 2017 she started getting antibiotics for bronchitis, urinary tract infections, but was quiet sent with her bowel health. Then in October 24, 2017 was admitted for an episode of abdominal pain, nausea, vomiting, diarrhea. Altered mental status. She was tachycardic, temperature was normal. White cell count was 13.8 with a left shift. Lactic acid was 1.9. CT of the abdomen was negative. She was placed under observation, and stool was sent off for C. difficile because she had associated diarrhea. She was started on oral steroids. The case was discussed with her school attendance secretary, Dr. Linda. She recommended Entocort for 2 weeks. She was also supposed to see a dental practice manager because she was binge eating. She was also told to stop smoking. She was continued on Flagyl. She was C. difficile negative. She was seen in the emergency room March 2018 for vomiting. It was asso ciated with significant anxiety and Ativan helped control the vomiting. She had a nontender belly with normal bowel sounds and she was sent home. She has not had any flares. No diarrhea. No fever, no chills. Minimal discomfort in her abdomen. She use to get daily cramps, daily abdominal pain. The Entyvio has really made a difference. Her main problem is chronic daily coughing from emphysema. Occasional phlegm production. Her other problem is chronic daily back pain for which she takes opioids. Then yesterday she started having mild central abdominal pain that is crescendo to be severe abdominal pain today. She is been unable to keep anything down and is been vomiting nonstop. Ambulance was called, and Dr. Mejia notes that the emesis bag was full of emesis. She had no relief with Zofran in route. She had transient hypotension. In the emergency room she was mildly hypothermic at 35.9, heart rate 85, blood pressure 186/101. CT of the abdomen shows bowel obstruction with mid small bowel obstruction with transition to the left abdomen. She has distended small bowel loops possibly displaced into the left abdomen. Suspicion of internal hernia. Mild mesenteric edema. No gross bowel wall thickening or free air. She has a previous ileocolic anastomosis. This appears to be more compatible with an adhesion but not inflammatory bowel disease as the cause of her obstruc tion.' - CONSULTS | PROCEDURES Consultations: Dr. Scott Ernst, general surgery - HOSPITAL COURSE Hospital Course: Rafaela was admitted to the hospital with a small bowel obstruction on 09/02/2018. She has Crohn's disease, and has had 2 small bowel resections and has an ileocolonic anastomosis. CT indicated that this is more mechanical obstruction then inflammatory bowel disease as the cause of her obstruction. Given her elevated WBC count on admission, she was started on cipro and flagyl. A NG tube was placed for decompression and she was given IV fluid hydration. General surgery was consulted. On 09/03/2018, her bowel obstruction was resolving as she passed gas and had a bowel movement. She was started on a clear liquid diet and tolerated this well. On the day of discharge, she was able to tolerate a full liquid diet. She is discharging on a low insoluble fiber diet. She was asked to avoid raw vegetables and nuts. Return precautions were given and she was asked to follow-up with her school attendance secretary to discuss timing of her next entyvio infusion, that she reports is due on 09/07/2018. She had acute renal insufficiency on admission with BUN/SCr of 26/1.1. This improved with IV hydration and then PO intake after her bowel obstruction improved. On the day of discharge her BUN/Scr 18/0.7. Her home medications for depression and anxiety were resumed once she was able to take oral medications. Her TSH in September 2017 was very, very suppressed at less than 0.18. Her TSH was checked, and within normal range, 0.82. She was continued on her home dose of levothyroxine after she was able to tolerate PO. Her fentanyl patch was continued during the hospitalization. Due to her dehydration on admission, her H&H were elevated to 16.1/50.6. With IV and PO hydration, her H&H was 11.9/35.8 on the day of discharge. She will need to have her CBC checked by her PCP within 7-10 days. Her potassium was 3.3 on the day of discharge. This was replaced with 40 mEq potassium. Her potassium level should be rechecked in 7-10 days. For her ongoing tobacco abuse, a nicotine patch was provided as needed. Smoking cessation counseling was also given. - ALLERGIES Allergies/Adverse Reactions: Allergies Allergy/AdvReac Type Severity Reaction Status Date / Time quetiapine fumarate * Allergy Intermediate Hives Verified 09/02/18 19:13 [From Seroquel] Sulfa (Sulfonamide Allergy Intermediate Hives Verified 09/02/18 19:13 Antibiotics) adalimumab [From Humira] Allergy Unknown Verified 09/02/18 19:13 Penicillins Allergy Hives Verified 09/02/18 19:13 - MEDICATIONS Home Medications: Ambulatory Orders Medication Instructions Recorded Confirmed Calcium Carbonate/Vitamin D3 1 tab PO DAILY 07/30/15 09/02/18 [Calcium 600-Vit D3 800 Caplet] Cholecalciferol (Vitamin D3) 1,000 unit PO DAILY 07/30/15 09/02/18 [D3-2000] Entyvio 300 mg IV .Q8W 04/07/16 09/02/18 Ondansetron [Zofran Odt] 4 mg PO TID PRN 12/05/16 09/02/18 fentaNYL 100 MCG PATCH [Duragesic 1 patch TOP Q48H 10/24/17 09/02/18 100mcg patch] ARIPiprazole [Aripiprazole] 20 mg PO DAILY 09/03/18 09/03/18 Ketamine HCl 25 mg PO TID 09/03/18 09/03/18 Lamotrigine [Lamotrigine ER] 200 mg PO QPM 09/03/18 09/03/18 Levothyroxine Sodium 200 mcg PO QDAC 09/03/18 09/03/18 Methylphenidate HCl 20 mg PO TID 09/03/18 09/03/18 [Methylphenidate ER] Topiramate [Topamax] 25 mg PO BID 09/03/18 09/03/18 Venlafaxine HCl 50 mg PO TID 09/03/18 09/03/18 clonazePAM [Clonazepam] 0.5 mg PO BID 09/03/18 09/03/18 - PHYSICAL EXAM AT DISCHARGE General Appearance: positive: No acute distress, Alert Eyes Bilateral: positive: Normal inspection, PERRL, EOMI ENT: positive: ENT inspection nml, Pharynx nml, No signs of dehydration Neck: positive: Nml inspection, Trachea midline Respiratory: positive: Chest non-tender, No respiratory distress, Breath sounds nml. negative: Wheezes, Rales, Rhonchi Cardiovascular: positive: Regular rate & rhythm. negative: No murmur, No gallop, Tachycardia Peripheral Pulses: positive: 2+ Abdomen: positive: Non-tender, Nml bowel sounds, No distention. negative: Guarding, Rebound Skin: positive: Warm, Dry Extremities: positive: Non-tender, Full ROM Neurologic/Psychiatric: positive: Oriented x3, CN's nml (2-12), Motor nml, Sensation nml, Mood/affect nml - LABS Result Diagrams: 09/04/18 04:55 09/04/18 05:45 - DIAGNOSTIC IMAGING Diagnostic Imaging Results: Final report reviewed Diagnostic Imaging Results Comments: CT abdomen/pelvis with oral and IV contrast 09/02/2018 --mid small bowel obstruction with transition left abdomen. Distended small loops of bowel appear possibly displaced into the left abdomen, raising suspicion of intestinal hernia. Differential would include adhesion and doubt Crohn's disease as cause of current obstruction. Mild mesenteric edema. Previous cholecystectomy and ileocolic anastomosis. 1-view abdominal x-ray 09/03/2018 -- mildly distended small bowel loop over the left midabdomen measures 4.0 cm. - FOLLOW UP Follow Up: Follow-up with your school attendance secretary as planned. Follow-up with primary care provider in 7-10 days to check potassium level. - TIME SPENT Time Spent in Discharge (Minutes): 45"
[2018-09-04] MEDS: POLYETHYLENE GLYCOL 3350 17 GM PACKET PO SCH (10:42)
== END 2018-09-04 11:47 | disposition home or self-care (01) | DRG 389 ==
LOC: EDUNIT# → ED 18:55 → MS2 22:29
PROVIDERS: ADMIT Specialist; ATTEND Nurse Practitioner
DX: K56.50 Intestinal adhesions [bands], unspecified as to partial versus complete obstruction (principal); K50.90 Crohn's disease, unspecified, without complications; J44.9 Chronic obstructive pulmonary disease, unspecified; E03.9 Hypothyroidism, unspecified; K21.9 Gastro-esophageal reflux disease without esophagitis; R32 Unspecified urinary incontinence; F31.9 Bipolar disorder, unspecified; F41.9 Anxiety disorder, unspecified; F42.9 Obsessive-compulsive disorder, unspecified; F43.10 Post-traumatic stress disorder, unspecified; G89.29 Other chronic pain; M54.9 Dorsalgia, unspecified; Z90.49 Acquired absence of other specified parts of digestive tract; Z88.0 Allergy status to penicillin; Z88.2 Allergy status to sulfonamides; F17.200 Nicotine dependence, unspecified, uncomplicated; E86.0 Dehydration; R79.89 Other specified abnormal findings of blood chemistry; G89.4 Chronic pain syndrome; D75.1 Secondary polycythemia; T68.XXXA Hypothermia, initial encounter; I95.89 Other hypotension; G47.30 Sleep apnea, unspecified; G47.00 Insomnia, unspecified; Z90.721 Acquired absence of ovaries, unilateral; Z90.79 Acquired absence of other genital organ(s); F41.8 Other specified anxiety disorders
CPT/HCPCS: 36415; 74018; 74177; 80048; 80053; 83690; 84443; 85025; 87640; 94640; 96365; 96375; 96376; 99283; 99284; 99285

== ENCOUNTER 2018-11-05 08:00 | Outpatient (CLI) | payer MEDICARE, OTHER ==
[2018-11-05 09:28] LABS: MUDS CUTOFF CONCENTRATIONS CUTOFF CONC BELOW:
[2018-11-05 13:14] LABS: AMPHETAMINE SCREEN,URINE NEGATIVE (NEGATIVE); BENZODIAZEPINES SCREEN, URINE NEGATIVE (NEGATIVE); COCAINE SCREEN URINE NEGATIVE (NEGATIVE); METHADONE SCREEN, URINE NEGATIVE (NEGATIVE); METHAMPHETAMINES SCREEN, URINE NEGATIVE (NEGATIVE); OPIATE SCREEN, URINE NEGATIVE (NEGATIVE); OXYCODONE SCREEN, URINE NEGATIVE (NEGATIVE); PROPOXYPHENE SCREEN, URINE NEGATIVE (NEGATIVE); TRICYCLIC ANTIDEPRESSANT,URINE NEGATIVE (NEGATIVE)
== END 2018-11-05 23:59 | disposition home or self-care (01) ==
LOC: LAB.WCP 08:00
PROVIDERS: ATTEND Family Medicine
DX: Z79.891 Long term (current) use of opiate analgesic (principal)
CPT/HCPCS: 80306

== ENCOUNTER 2019-01-07 20:30 | Emergency (ER) | payer MEDICARE, OTHER ==
[2019-01-08] MEDS ORDERED: SODIUM CHLORIDE 0.9% 1,000 ML IV ONE ×2 (00:06→01:24)
[2019-01-08] MEDS ORDERED: ONDANSETRON 4 MG/2 ML VIAL IVP STA (00:06)
[2019-01-08] MEDS ORDERED: HYDROmorphone 1 MG/ML CARPUJECT IVP STA (00:06)
[2019-01-08] MEDS ORDERED: LORazepam 2 MG/ML VIAL IVP STA ×2 (00:06→01:24)
[2019-01-08 00:17] LABS: BASOPHILS # (AUTO) 0.1 10^3/uL (0.0-0.1); BASOPHILS % (AUTO) 0.5 %; EOSINOPHILS % (AUTO) 0.3 %; LYMPHOCYTES % (AUTO) 14.3 %; MEAN CORPUSCULAR HEMOGLOBIN 28.5 pg (27.0-31.0); MEAN CORPUSCULAR HGB CONC 32.5 g/dL (32.0-36.0); MEAN CORPUSCULAR VOLUME 87.6 fL (81.0-99.0); MEAN PLATELET VOLUME 8.5 fL (7.9-10.8); MONOCYTES # (AUTO) 0.7 10^3/uL (0.0-1.0); MONOCYTES % (AUTO) 4.9 %; NEUTROPHILS # (AUTO) 11.4 10^3/uL (1.5-6.6); PLT - PLATELET COUNT 383 10^3/uL (130-450); RED BLOOD COUNT 5.28 10^6/uL (4.20-5.40); RED CELL DISTRIBUTION WIDTH 13.6 % (12.0-15.0); WHITE BLOOD COUNT 14.2 x10^3/uL (4.8-10.8)
[2019-01-08 00:24] LABS: ALBUMIN 4.7 g/dL (3.2-5.5); ALBUMIN/GLOBULIN RATIO 1.2 (1.0-2.2); BILIRUBIN,TOTAL 1.1 mg/dL (0.2-1.0); CALCIUM 10.8 mg/dL (8.5-10.3); TOTAL PROTEIN 8.5 g/dL (6.7-8.2)
[2019-01-08 00:47] LABS: BILIRUBIN,URINE NEGATIVE (NEGATIVE); GLUCOSE, URINE (UA) NEGATIVE (NEGATIVE); KETONES,URINE (UA) 15 mg/dL (NEGATIVE); LEUKOCYTE ESTERASE, URINE NEGATIVE (NEGATIVE); NITRITE,URINE NEGATIVE (NEGATIVE); OCCULT BLOOD,URINE LARGE (NEGATIVE); PH,URINE 5.5 PH (5.0-7.5); PROTEIN,URINE >=300 mg/dL (NEGATIVE); UROBILINOGEN,URINE 0.2 (NORMAL) E.U./dL (NORMAL)
[2019-01-08 01:00] LABS: CLARITY,URINE SL. CLOUDY (CLEAR)
[2019-01-08 01:01] LABS: BACTERIA,URINE Rare /HPF (None Seen); SQUAMOUS EPITHELIAL CELL,UR FEW Squamous (<= Few)
[2019-01-08 01:05] LABS: CASTS, URINE 0-2 Hyaline Casts /LPF
--- NOTE | 2019-01-08 01:26 | ED Physician Documentation ---
PD HPI NVD - Stated complaint Stated Complaint: VOMITING - Chief complaint Chief Complaint: General - History obtained from History obtained from: Patient, Family - History of Present Illness Timing - onset: Enter time (0300), Last night Timing - duration: Days (1) Timing - details: Abrupt onset, Still present Associated symptoms: Abdominal pain. No: Fever Contributing factors: No: Sick contact Improved by: Laying still, Vomiting Similar symptoms before: Diagnosis (cyclical vomiting) Recently seen: Not recently seen - Additonal information Additional information: 58-year-old female with a history of cyclical vomiting syndrome has developed vomiting and abdominal pain beginning about 3 AM and she has had persistence of symptoms all day she has not had improvement with use of oral Zofran and she is come to the emergency department. 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: Other : Incontinence HEENT: None Psych: Depression, Anxiety, Bipolar disorder, Post traumatic stress disorder, Obsessive compulsive disorder Musculoskeletal: Chronic back pain Derm: None - Past Surgical History Past Surgical History: Yes General: Cholecystectomy, Bowel surgery /FORENSIC SERGEANT: section, Oophrectomy HEENT: Tonsil/Adenoidectomy Derm: Skin cancer surgery - Present Medications Home Medications: Ambulatory Orders Medication Instructions Recorded Confirmed Calcium Carbonate/Vitamin D3 1 tab PO DAILY 07/30/15 09/02/18 [Calcium 600-Vit D3 800 Caplet] Cholecalciferol (Vitamin D3) 1,000 unit PO DAILY 07/30/15 09/02/18 [D3-2000] Entyvio 300 mg IV .Q8W 04/07/16 09/02/18 Ondansetron [Zofran Odt] 4 mg PO TID PRN 12/05/16 09/02/18 fentaNYL 100 MCG PATCH [Duragesic 1 patch TOP Q48H 10/24/17 09/02/18 100mcg patch] ARIPiprazole [Aripiprazole] 20 mg PO DAILY 09/03/18 09/03/18 Levothyroxine Sodium 175 mcg PO QDAC 09/03/18 09/03/18 Methylphenidate HCl 20 mg PO TID 09/03/18 09/03/18 [Methylphenidate ER] clonazePAM [Clonazepam] 0.5 mg PO BID 09/03/18 09/03/18 - Allergies Allergies/Adverse Reactions: Allergies Allergy/AdvReac Type Severity Reaction Status Date / Time quetiapine fumarate * Allergy Intermediate Hives Verified 01/07/19 20:42 [From Seroquel] Sulfa (Sulfonamide Allergy Intermediate Hives Verified 01/07/19 20:42 Antibiotics) adalimumab [From Humira] Allergy Unknown Verified 01/07/19 20:42 Penicillins Allergy Hives Verified 01/07/19 20:42 - Social History Does the pt smoke?: Yes Smoking Status: Current every day smoker Does the pt drink ETOH?: No Does the pt have substance abuse?: No - Immunizations Immunizations are current?: Yes - POLST Patient has POLST: No POLST Status: Full Code PD ED PE NORMAL - Vitals Vital signs reviewed: Yes (hypertensive) - General General: Alert and oriented X 3, Well developed/nourished, Other (appears to be in pain and appears dry ) - HEENT HEENT: Atraumatic, PERRL, EOMI, Other (dry mucous membranes ) - Neck Neck: Supple, no meningeal sign, No bony TTP - Cardiac Cardiac: RRR, No murmur - Respiratory Respiratory: No respiratory distress, Clear bilaterally - Abdomen Abdomen: Normal bowel sounds, Soft, Other (mild general tenderness ) - Back Back: No CVA TTP, No spinal TTP - Derm Derm: Normal color, Warm and dry, No rash - Extremities Extremities: No deformity, No edema - Neuro Neuro: Alert and oriented X 3, construction area manager 2-12 intact, No motor deficit, No sensory deficit, Normal speech Eye Opening: Spontaneous Motor: Obeys Commands Verbal: Oriented GCS Score: 15 - Psych Psych: Normal mood, Normal affect Results - Vitals Vitals: Vital Signs - 24 hr 01/07/19 01/07/19 01/08/19 20:35 23:14 00:32 Temperature 36.7 C 37.1 C Heart Rate 81 79 84 Respiratory 18 16 16 Rate Blood Pressure 148/102 H 164/100 H 179/86 H O2 Saturation 96 96 100 01/08/19 02:44 Temperature 36.7 C Heart Rate 75 Respiratory 16 Rate Blood Pressure 122/80 O2 Saturation 97 Oxygen O2 Source Room air - Labs Labs: Laboratory Tests 01/07/19 01/07/19 01/07/19 23:40 23:40 23:40 WBC 14.2 H RBC 5.28 Hgb 15.0 Hct 46.2 MCV 87.6 MCH 28.5 MCHC 32.5 RDW 13.6 Plt Count 383 MPV 8.5 Neut # (Auto) 11.4 H Lymph # (Auto) 2.0 [place] # (Auto) 0.7 Eos # (Auto) 0.0 Baso # (Auto) 0.1 Absolute Nucleated RBC 0.00 Nucleated RBC % 0.0 Sodium 138 Potassium 3.7 Chloride 99 L Carbon Dioxide 22 Anion Gap 17.0 H BUN 32 H Creatinine 1.0 Estimated GFR (MDRD) 57 L Glucose 156 H Calcium 10.8 H Total Bilirubin 1.1 H AST 41 ALT 24 Alkaline Phosphatase 90 Troponin I < 0.04 Total Protein 8.5 H Albumin 4.7 Globulin 3.8 Albumin/Globulin Ratio 1.2 Lipase 37 Urine Color Urine Clarity Urine pH Ur Specific [place] Urine Protein Urine Glucose (UA) Urine Ketones Urine Occult Blood Urine Nitrite Urine Bilirubin Urine Urobilinogen Ur Leukocyte Esterase Urine RBC Urine WBC Ur Squamous Epith Cells Urine Bacteria Urine Casts Ur Microscopic Review Urine Culture Comments 01/08/19 00:31 WBC RBC Hgb Hct MCV MCH MCHC RDW Plt Count MPV Neut # (Auto) Lymph # (Auto) [place] # (Auto) Eos # (Auto) Baso # (Auto) Absolute Nucleated RBC Nucleated RBC % Sodium Potassium Chloride Carbon Dioxide Anion Gap BUN Creatinine Estimated GFR (MDRD) Glucose Calcium Total Bilirubin AST ALT Alkaline Phosphatase Troponin I Total Protein Albumin Globulin Albumin/Globulin Ratio Lipase Urine Color YELLOW Urine Clarity SL. CLOUDY Urine pH 5.5 Ur Specific [place] >=1.030 H Urine Protein >=300 H Urine Glucose (UA) NEGATIVE Urine Ketones 15 H Urine Occult Blood LARGE H Urine Nitrite NEGATIVE Urine Bilirubin NEGATIVE Urine Urobilinogen 0.2 (NORMAL) Ur Leukocyte Esterase NEGATIVE Urine RBC 6-10 H Urine WBC 0-3 Ur Squamous Epith Cells FEW Squamous Urine Bacteria Rare Urine Casts 0-2 Hyaline Casts Ur Microscopic Review INDICATED Urine Culture Comments NOT INDICATED PD MEDICAL DECISION MAKING - ED course Complexity details: reviewed results, re-evaluated patient, considered differential, d/w patient, d/w family ED course: 58-year-old female with history of cyclical vomiting syndrome is administered saline Dilaudid Zofran and Ativan. She has improvement with use of these medications and is well to go home.58-year-old female with history of cyclical vomiting syndrome is administered saline Dilaudid Zofran and Ativan. She has improvement with use of these medications and is well to go home. Departure - Departure Disposition: 01 Home, Self Care Clinical Impression: Dehydration Nausea & vomiting Qualifiers: Vomiting type: cyclical vomiting Vomiting Intractability: non-intractable Qualified Code(s): G43.A0 - Cyclical vomiting, not intractable Condition: Stable Instructions: ED Dehydration, ED Diet Vomiting Diarrhea Follow-Up: Addi Landeros MD [Provider Admit Priv/Credential] - Discharge Date/Time: 01/08/19 02:45
[2019-01-08 02:45] VITALS: BP 122/80
== END 2019-01-08 02:45 | disposition home or self-care (01) ==
LOC: ED 20:30
DX: E86.0 Dehydration (principal); G43.A0 Cyclical vomiting, in migraine, not intractable; K21.9 Gastro-esophageal reflux disease without esophagitis; Z87.19 Personal history of other diseases of the digestive system; F17.200 Nicotine dependence, unspecified, uncomplicated
CPT/HCPCS: 36415; 80053; 81001; 83690; 84484; 85025; 96361; 96374; 99283; 99284; J1170; J2060; 81003; 87086

== ENCOUNTER 2019-01-21 09:56 | Outpatient (CLI) | payer MEDICARE | END 2019-01-21 09:57 | disposition home or self-care (01) | LOC: NS 09:56 | PROVIDERS: ATTEND Registered Nurse | DX: Z71.3 Dietary counseling and surveillance (principal); K50.90 Crohn's disease, unspecified, without complications; E11.9 Type 2 diabetes mellitus without complications | CPT/HCPCS: 97802 ==

== ENCOUNTER 2023-03-23 04:52 | Outpatient (CLI) | payer MEDICARE, OTHER | END 2023-03-23 23:59 | disposition critical access hospital (66) | LOC: EMS 04:52 | DX: J02.9 Acute pharyngitis, unspecified (principal); R05.9 Cough, unspecified | CPT/HCPCS: A0425; A0429 ==

== ENCOUNTER 2023-03-23 05:09 | Emergency (ER) | payer MEDICARE, OTHER ==
--- NOTE | 2023-03-23 05:49 | ED Physician Documentation ---
PD HPI DYSPNEA - Stated complaint Stated Complaint: COUGH - Chief complaint Chief Complaint: Resp - History obtained from History obtained from: Patient - Additional information Additional information: Woke from sleep at approximately 4 AM this morning. She says she felt there was something in her throat; she sat up and coughed up a large piece of disclored phlegm. Since that time, she has felt short of breath, dyspneic with productive/wet cough. Patient has COPD but does not use oxygen at home. She does use MDIs; has nebulizer but is out of the albuterol bullets. Denies fever, chest pain, leg swelling. Review of Systems Constitutional: reports: Reviewed and negative Cardiac: reports: Reviewed and negative Respiratory: reports: Dyspnea, Cough, Wheezing. 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: section, Oophrectomy HEENT: Tonsil/Adenoidectomy Derm: Skin cancer surgery - Present Medications Home Medications: Ambulatory Orders Medication Instructions Recorded Confirmed Calcium Carbonate/Vitamin D3 1 tab PO DAILY 07/30/15 09/02/18 [Calcium 600-Vit D3 800 Caplet] Cholecalciferol (Vitamin D3) 1,000 unit PO DAILY 07/30/15 09/02/18 [D3-2000] Entyvio 300 mg IV .Q8W 04/07/16 09/02/18 Ondansetron [Zofran Odt] 4 mg PO TID PRN 12/05/16 09/02/18 fentaNYL 100 MCG PATCH [Duragesic 1 patch TOP Q48H 10/24/17 09/02/18 100mcg patch] ARIPiprazole [Aripiprazole] 20 mg PO DAILY 09/03/18 09/03/18 Levothyroxine Sodium 175 mcg PO QDAC 09/03/18 09/03/18 Methylphenidate HCl 20 mg PO TID 09/03/18 09/03/18 [Methylphenidate ER] clonazePAM [Clonazepam] 0.5 mg PO BID 09/03/18 09/03/18 Albuterol 2.5 mg INH Q4H PRN #30 ml 03/23/23 Albuterol Sulf [Ventolin Hfa 1 - 2 puffs INH Q4HR PRN #1 each 03/23/23 Inhaler] Azithromycin [Zithromax] 1 tab PO DAILY #6 tablet 03/23/23 predniSONE [Deltasone] 60 mg PO DAILY 4 Days #12 tablet 03/23/23 - Allergies Allergies/Adverse Reactions: Allergies Allergy/AdvReac Type Severity Reaction Status Date / Time quetiapine fumarate * Allergy Intermediate Hives Verified 03/23/23 05:24 [From Seroquel] Sulfa (Sulfonamide Allergy Intermediate Hives Verified 03/23/23 05:24 Antibiotics) adalimumab [From Humira] Allergy Unknown Verified 03/23/23 05:24 Penicillins Allergy Hives Verified 03/23/23 05:24 - Social History Does the pt smoke?: Yes Smoking Status: Current every day smoker Does the pt drink ETOH?: No Does the pt have substance abuse?: No - Immunizations Immunizations are current?: Yes - POLST Patient has POLST: No POLST Status: Full Code PD ED PE NORMAL - Vitals Vital signs reviewed: Yes - General General: Alert and oriented X 3, No acute distress, Well developed/nourished - Cardiac Cardiac: RRR, No murmur - Respiratory Respiratory: No respiratory distress - Abdomen Abdomen: Soft, Non tender PD ED PE EXPANDED - Respiratory Respiratory: Wheezing (end-expiratory wheezing bilaterally, more pronounced on left), Rhonchi (left), Decreased breath sounds (mostly left-sided). No: Stridor, Gasping Results - Vitals Vitals: Oxygen O2 Source Room air - EKG (time done) No standard instances EKG releavant findings:: EKG personally interpreted by author of this note. Relevant findings are: Rate: Rate (enter#) (107), Tachy Rhythm: Sinus tachycardia [place]: Normal Intervals: Normal NC QRS: Normal Ischemia: Normal ST segments - Labs Labs: Laboratory Tests 03/23/23 03/23/23 03/23/23 05:38 05:38 05:38 WBC 8.5 RBC 4.19 L Hgb 12.4 Hct 38.5 MCV 91.9 MCH 29.6 MCHC 32.2 RDW 14.0 Plt Count 205 MPV 9.2 Neut # (Auto) 5.1 Lymph # (Auto) 2.6 [place] # (Auto) 0.6 Eos # (Auto) 0.2 Baso # (Auto) 0.0 Absolute Nucleated RBC 0.00 Nucleated RBC % 0.0 D-Dimer 237.8 Sodium 140 Potassium 3.8 Chloride 110 Carbon Dioxide 24 Anion Gap 6.0 BUN 21 H Creatinine 1.1 Estimated GFR (MDRD) 50 L Glucose 140 H Calcium 10.5 H Total Bilirubin 0.7 AST 119 H ALT 83 H Alkaline Phosphatase 121 B-Natriuretic Peptide 38 Total Protein 6.9 Albumin 4.1 Globulin 2.8 Albumin/Globulin Ratio 1.5 Lipase 55 Nasal Adenovirus (PCR) Nasal B. parapertussis DNA (PCR) Nasal Coronavir 229E PCR Nasal Coronavir HKU1 PCR Nasal Coronavir NL63 PCR Nasal Coronavir OC43 PCR Nasal Enterovir/Rhinovir PCR Nasal Influenza B PCR Nasal Influenza A PCR Nasal Parainfluen 1 PCR Nasal Parainfluen 2 PCR Nasal Parainfluen 3 PCR Nasal Parainfluen 4 PCR Nasal RSV (PCR) Nasal B.pertussis DNA PCR Nasal C.pneumoniae (PCR) [place] Human Metapneumo PCR Nasal M.pneumoniae (PCR) Nasal SARS-CoV-2 (PCR) 03/23/23 06:29 WBC RBC Hgb Hct MCV MCH MCHC RDW Plt Count MPV Neut # (Auto) Lymph # (Auto) [place] # (Auto) Eos # (Auto) Baso # (Auto) Absolute Nucleated RBC Nucleated RBC % D-Dimer Sodium Potassium Chloride Carbon Dioxide Anion Gap BUN Creatinine Estimated GFR (MDRD) Glucose Calcium Total Bilirubin AST ALT Alkaline Phosphatase B-Natriuretic Peptide Total Protein Albumin Globulin Albumin/Globulin Ratio Lipase Nasal Adenovirus (PCR) NOT DETECTED Nasal B. parapertussis DNA (PCR) NOT DETECTED Nasal Coronavir 229E PCR NOT DETECTED Nasal Coronavir HKU1 PCR NOT DETECTED Nasal Coronavir NL63 PCR NOT DETECTED Nasal Coronavir OC43 PCR NOT DETECTED Nasal Enterovir/Rhinovir PCR NOT DETECTED Nasal Influenza B PCR NOT DETECTED Nasal Influenza A PCR NOT DETECTED Nasal Parainfluen 1 PCR NOT DETECTED Nasal Parainfluen 2 PCR NOT DETECTED Nasal Parainfluen 3 PCR NOT DETECTED Nasal Parainfluen 4 PCR NOT DETECTED Nasal RSV (PCR) NOT DETECTED Nasal B.pertussis DNA PCR NOT DETECTED Nasal C.pneumoniae (PCR) NOT DETECTED [place] Human Metapneumo PCR NOT DETECTED Nasal M.pneumoniae (PCR) NOT DETECTED Nasal SARS-CoV-2 (PCR) NOT DETECTED - Rads (name of study) chest xray Relevant Findings:: Prelim report reviewed, See rad report PD Medical Decision Making - ED course Complexity details: reviewed results, re-evaluated patient, considered differential, d/w patient ED course: Surprisingly normal CXR (given adventitious and diminished breath sounds on left lung auscultation). No concerning findings on CBC, ER abdominal panel (mildly elevated BUN, creatinine), d-dimer is negative range, and respiratory PCR panel is negative for viruses tested. She is given duoneb in ED and 10mg IV decadron. She is improving in respiratory rate as well as air movement (on reexam of lungs). Care of patient turned over to oncoming ED physician (Dr. Ferreira) pending either adequate improvement to consider d/c vs. further ED treatment / observation vs admit to [facility]. I ordered an albuterol neb prior to my departure for the day. Departure - Departure Disposition: 01 Home, Self Care Clinical Impression: Bronchitis Condition: Stable Instructions: ED Bronchitis Asthmatic Follow-Up: Graciela Delgado DO [Primary Care Provider] - Prescriptions: Albuterol Sulf [Ventolin Hfa Inhaler] 1 - 2 puffs INH Q4HR PRN #1 each PRN Reason: Shortness Of Air/Wheezing Albuterol 2.5 mg INH Q4H PRN #30 ml PRN Reason: Wheezing predniSONE [Deltasone] 60 mg PO DAILY 4 Days #12 tablet Azithromycin [Zithromax] 1 tab PO DAILY #6 tablet Comments: I have sent prescriptions to help with this episode of bronchitis including a 4- day course of prednisone which she will start tomorrow. I have also started you on an antibiotic as your lungs are compromised from underlying emphysema. Please take the medications as directed. Return to the emergency department with any worsening symptoms. Otherwise I would recommend close follow-up with your primary care provider. Your respiratory swab was negative for COVID, Influenza and RSV. I have sent your prescriptions to [facility] in [place]. Forms: PCP List Discharge Date/Time: 03/23/23 10:44
[2023-03-23] MEDS ORDERED: DEXAMETHASONE 10 MG/ML VIAL IVP STA (06:00)
[2023-03-23] MEDS ORDERED: IPRATROPIUM/ALBUTEROL 3 ML NEB INH STA (06:00)
[2023-03-23 06:08] LABS: BASOPHILS % (AUTO) 0.4 %; EOSINOPHILS # (AUTO) 0.2 10^3/uL (0.0-0.7); EOSINOPHILS % (AUTO) 2.1 %; HCT - HEMATOCRIT 38.5 % (37.0-47.0); HGB - HEMOGLOBIN 12.4 g/dL (12.0-16.0); LYMPHOCYTES # (AUTO) 2.6 10^3/uL (1.5-3.5); LYMPHOCYTES % (AUTO) 30.6 %; MEAN CORPUSCULAR HEMOGLOBIN 29.6 pg (27.0-31.0); MEAN CORPUSCULAR HGB CONC 32.2 g/dL (32.0-36.0); MEAN CORPUSCULAR VOLUME 91.9 fL (81.0-99.0); MEAN PLATELET VOLUME 9.2 fL (7.9-10.8); MONOCYTES # (AUTO) 0.6 10^3/uL (0.0-1.0); MONOCYTES % (AUTO) 6.9 %; NEUTROPHILS # (AUTO) 5.1 10^3/uL (1.5-6.6); NEUTROPHILS % (AUTO) 59.6 %; PLT - PLATELET COUNT 205 10^3/uL (130-450); RED BLOOD COUNT 4.19 10^6/uL (4.20-5.40); WHITE BLOOD COUNT 8.5 x10^3/uL (4.8-10.8)
[2023-03-23 06:22] LABS: ALBUMIN 4.1 g/dL (3.2-5.5); ALBUMIN/GLOBULIN RATIO 1.5 (1.0-2.2); BILIRUBIN,TOTAL 0.7 mg/dL (0.2-1.0); CALCIUM 10.5 mg/dL (8.5-10.3); CREATININE 1.1 mg/dL (0.6-1.3); POTASSIUM 3.8 mmol/L (3.5-4.5); TOTAL PROTEIN 6.9 g/dL (6.4-8.9)
[2023-03-23] MEDS ORDERED: fentaNYL 100 MCG/2 ML VIAL IVP STA (06:52)
[2023-03-23 07:25] LABS: B. PARAPERTUSSIS- RESP PCR PAN NOT DETECTED; B. PERTUSSIS- RESP PCR PANEL NOT DETECTED; C. PNEUMONIAE- RESP PCR PANEL NOT DETECTED; CORONAVIRUS 229E-RESP PCR NOT DETECTED; CORONAVIRUS HKU1-RESP PCR NOT DETECTED; CORONAVIRUS NL63-RESP PCR NOT DETECTED; CORONAVIRUS OC43-RESP PCR NOT DETECTED; HUMAN METAPNEUMOVIRUS NOT DETECTED; INFLUENZA A- RESP PCR PANEL NOT DETECTED; INFLUENZA B - RESP PCR PANEL NOT DETECTED; M. PNEUMONIAE- RESP PCR PANEL NOT DETECTED; PARAINFLUENZA VIRUS 1 NOT DETECTED; PARAINFLUENZA VIRUS 2 NOT DETECTED; PARAINFLUENZA VIRUS 3 NOT DETECTED; PARAINFLUENZA VIRUS 4 NOT DETECTED; RHINOVIRUS/ENTEROVIRUS NOT DETECTED; RSV- RESP PCR PANEL NOT DETECTED; SARS-CoV-2 -RESP PCR PANEL NOT DETECTED
[2023-03-23] MEDS ORDERED: ALBUTEROL NEB 2.5 MG/3 ML INH STA (08:03)
--- NOTE | 2023-03-23 08:50 | XRAY Report ---
PROCEDURE: Chest 1 View X-Ray INDICATIONS: chest pain TECHNIQUE: One view of the chest was acquired. COMPARISON: CXR 05/03/2018. FINDINGS: Surgical changes and devices: None. Lungs and pleura: No pleural effusions or pneumothorax. Lungs are clear. Mediastinum: Mediastinal contours appear normal. Heart size is normal. Bones and chest wall: No suspicious bony lesions. Overlying soft tissues appear unremarkable. IMPRESSION: No acute cardiopulmonary process. This report is concordant with the overnight preliminary interpretation. Reviewed by: Javid Andrew MD on 03/23/2023 8:49 AM PDT Approved by: Javid Andrew MD on 03/23/2023 8:49 AM PDT Station ID: [id number]
--- NOTE | 2023-03-23 10:25 | ED Physician Documentation ---
ED Addendum - Addendum Addendum: Patient signed out to me at shift change pending reevaluation after second breathing treatment. Patient reports feeling much better. No longer wheezing or requiring any oxygen with stable saturations on room air. Her chest x-ray is negative for pneumonia. Her work-up today suggest bronchitis/COPD exacerbation. Discussed treatment plan which she is agreeable to including course of steroids. Patient counseled on strict return precautions. Spouse at bedside is also supportive of plan. Departure - Departure Disposition: 01 Home, Self Care Clinical Impression: Bronchitis Condition: Stable Instructions: ED Bronchitis Asthmatic Follow-Up: Graciela Delgado DO [Primary Care Provider] - Prescriptions: Albuterol Sulf [Ventolin Hfa Inhaler] 1 - 2 puffs INH Q4HR PRN #1 each PRN Reason: Shortness Of Air/Wheezing Albuterol 2.5 mg INH Q4H PRN #30 ml PRN Reason: Wheezing predniSONE [Deltasone] 60 mg PO DAILY 4 Days #12 tablet Azithromycin [Zithromax] 1 tab PO DAILY #6 tablet Comments: I have sent prescriptions to help with this episode of bronchitis including a 4- day course of prednisone which she will start tomorrow. I have also started you on an antibiotic as your lungs are compromised from underlying emphysema. Please take the medications as directed. Return to the emergency department with any worsening symptoms. Otherwise I would recommend close follow-up with your primary care provider. Your respiratory swab was negative for COVID, Influenza and RSV. I have sent your prescriptions to [facility] in [place]. Forms: PCP List Discharge Date/Time: 03/23/23 10:44
[2023-03-23 11:04] VITALS: BP 117/64; O2SAT 94
== END 2023-03-23 10:44 | disposition home or self-care (01) ==
LOC: ED 05:09
DX: J40 Bronchitis, not specified as acute or chronic (principal); F17.200 Nicotine dependence, unspecified, uncomplicated; Z20.822 Contact with and (suspected) exposure to COVID-19
CPT/HCPCS: 36415; 80053; 83690; 83880; 85025; 85379; 87633; 94640; 96374; 96375; 99284

== ENCOUNTER 2023-05-16 04:56 | Emergency (ER) | payer MEDICARE, OTHER ==
[2023-05-16] MEDS ORDERED: SODIUM CHLORIDE 0.9% 2,000 ML IV STA (05:18)
[2023-05-16 05:26] LABS: BASOPHILS % (AUTO) 0.3 %; HCT - HEMATOCRIT 41.7 % (37.0-47.0); HGB - HEMOGLOBIN 13.9 g/dL (12.0-16.0); LYMPHOCYTES # (AUTO) 0.7 10^3/uL (1.5-3.5); LYMPHOCYTES % (AUTO) 5.7 %; MEAN CORPUSCULAR HEMOGLOBIN 30.2 pg (27.0-31.0); MEAN CORPUSCULAR HGB CONC 33.3 g/dL (32.0-36.0); MEAN CORPUSCULAR VOLUME 90.5 fL (81.0-99.0); MEAN PLATELET VOLUME 8.7 fL (7.9-10.8); MONOCYTES # (AUTO) 0.7 10^3/uL (0.0-1.0); NEUTROPHILS # (AUTO) 10.2 10^3/uL (1.5-6.6); NEUTROPHILS % (AUTO) 87.6 %; PLT - PLATELET COUNT 329 10^3/uL (130-450); RED BLOOD COUNT 4.61 10^6/uL (4.20-5.40); RED CELL DISTRIBUTION WIDTH 13.1 % (12.0-15.0); WHITE BLOOD COUNT 11.6 x10^3/uL (4.8-10.8)
[2023-05-16] MEDS ORDERED: DROPERIDOL 5 MG/2 ML VIAL IVP STA (05:33)
[2023-05-16] MEDS ORDERED: diphenhydrAMINE INJ 50 MG/ML VIAL IVP STA (05:33)
[2023-05-16 05:44] LABS: ALBUMIN 4.9 g/dL (3.2-5.5)
[2023-05-16 05:47] LABS: CALCIUM 12.7 mg/dL (8.5-10.3)
[2023-05-16 06:04] LABS: ALBUMIN/GLOBULIN RATIO 1.5 (1.0-2.2); BILIRUBIN,TOTAL 0.7 mg/dL (0.2-1.0); POTASSIUM 4.2 mmol/L (3.5-4.5); TOTAL PROTEIN 8.2 g/dL (6.4-8.9)
--- NOTE | 2023-05-16 06:11 | ED Physician Documentation ---
History of Present Illness - Stated complaint Stated Complaint: VOMIT - Chief complaint Chief Complaint: Abd Pain - Additonal information Additional information: Patient 62-year-old female presenting to the emergency department with nausea, vomiting, abdominal pain. Accompanied by is present at bedside. Reports 6 days of abdominal pain with associated nausea vomiting. Evaluated at [facility] yesterday. Reports that she was feeling well until approximately 10 PM yesterday evening when she began vomiting again. Past medical history significant for cyclical vomiting syndrome. 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: section, Oophrectomy HEENT: Tonsil/Adenoidectomy Derm: Skin cancer surgery - Present Medications Home Medications: Ambulatory Orders Medication Instructions Recorded Confirmed Calcium Carbonate/Vitamin D3 1 tab PO DAILY 07/30/15 05/16/23 [Calcium 600-Vit D3 800 Caplet] Cholecalciferol (Vitamin D3) 1,000 unit PO DAILY 07/30/15 05/16/23 [D3-2000] Entyvio 300 mg IV .Q8W 04/07/16 05/16/23 Ondansetron [Zofran Odt] 4 mg PO TID PRN 12/05/16 05/16/23 fentaNYL 100 MCG PATCH [Duragesic 1 patch TOP Q48H 10/24/17 05/16/23 100mcg patch] ARIPiprazole [Aripiprazole] 20 mg PO DAILY 09/03/18 05/16/23 Levothyroxine Sodium 175 mcg PO QDAC 09/03/18 05/16/23 Methylphenidate HCl 20 mg PO TID 09/03/18 05/16/23 [Methylphenidate ER] clonazePAM [Clonazepam] 0.5 mg PO BID 09/03/18 05/16/23 Albuterol 2.5 mg INH Q4H PRN #30 ml 03/23/23 05/16/23 Albuterol Sulf [Ventolin Hfa 1 - 2 puffs INH Q4HR PRN #1 each 03/23/23 05/16/23 Inhaler] Azithromycin [Zithromax] 1 tab PO DAILY #6 tablet 03/23/23 05/16/23 predniSONE [Deltasone] 60 mg PO DAILY 4 Days #12 tablet 03/23/23 05/16/23 HYDROcod/ACETAM 5/325 [[place] 5/325] 1 ea PO Q6H PRN #18 tablet 05/16/23 Promethazine Supp [Phenergan Supp] 25 mg [place] Q6H PRN #10 supp 05/16/23 dexAMETHasone [Decadron] 4 mg PO DAILY #10 tablet 05/16/23 - Allergies Allergies/Adverse Reactions: Allergies Allergy/AdvReac Type Severity Reaction Status Date / Time quetiapine fumarate * Allergy Intermediate Hives Verified 05/16/23 05:19 [From Seroquel] Sulfa (Sulfonamide Allergy Intermediate Hives Verified 05/16/23 05:19 Antibiotics) adalimumab [From Humira] Allergy Unknown Verified 05/16/23 05:19 Penicillins Allergy Hives Verified 05/16/23 05:19 - Social History Does the pt smoke?: Yes Smoking Status: Current every day smoker Does the pt drink ETOH?: No Does the pt have substance abuse?: No - Immunizations Immunizations are current?: Yes - POLST Patient has POLST: No POLST Status: Full Code Results - Vitals Vitals: Oxygen O2 Source Room air - EKG (time done) 0547 EKG releavant findings:: EKG personally interpreted by author of this note. Relevant findings are: Sinus rhythm with rate 104 bpm. Normal axis. Normal [place], QRS, QTc intervals. No ST segment elevations. Nonspecific ST-T wave abnormalities noted in the early precordial leads. These are new in comparison to the most recent for comparison 12/10/2013. - Labs Labs: Laboratory Tests 05/16/23 05/16/23 05/16/23 05:19 05:19 05:20 WBC 11.6 H RBC 4.61 Hgb 13.9 Hct 41.7 MCV 90.5 MCH 30.2 MCHC 33.3 RDW 13.1 Plt Count 329 MPV 8.7 Neut # (Auto) 10.2 H Lymph # (Auto) 0.[address] [place] # (Auto) 0.7 Eos # (Auto) 0.0 Baso # (Auto) 0.0 Absolute Nucleated RBC 0.00 Nucleated RBC % 0.0 Sodium Potassium Chloride Carbon Dioxide Anion Gap BUN Creatinine Estimated GFR (MDRD) Glucose Lactic Acid Calcium Phosphorus 2.7 Magnesium 1.7 Total Bilirubin AST ALT Alkaline Phosphatase Troponin I High Sens 7.6 Total Protein Albumin Globulin Albumin/Globulin Ratio Lipase Urine Color Urine Clarity Urine pH Ur Specific [place] Urine Protein Urine Glucose (UA) Urine Ketones Urine Occult Blood Urine Nitrite Urine Bilirubin Urine Urobilinogen Ur Leukocyte Esterase Urine RBC Urine WBC Ur Squamous Epith Cells Urine Bacteria Ur Microscopic Review Urine Culture Comments 05/16/23 05/16/23 05/16/23 05:20 06:13 08:16 WBC RBC Hgb Hct MCV MCH MCHC RDW Plt Count MPV Neut # (Auto) Lymph # (Auto) [place] # (Auto) Eos # (Auto) Baso # (Auto) Absolute Nucleated RBC Nucleated RBC % Sodium 136 Potassium 4.2 Chloride 99 L Carbon Dioxide 27 Anion Gap 10.0 BUN 18 Creatinine 1.0 Estimated GFR (MDRD) 56 L Glucose 166 H Lactic Acid 1.3 Calcium 12.7 H* Phosphorus Magnesium Total Bilirubin 0.7 AST 32 ALT 40 Alkaline Phosphatase 127 H Troponin I High Sens Total Protein 8.2 Albumin 4.9 Globulin 3.3 Albumin/Globulin Ratio 1.5 Lipase 11 Urine Color YELLOW Urine Clarity CLEAR Urine pH 6.5 Ur Specific [place] 1.010 Urine Protein 30 H Urine Glucose (UA) NEGATIVE Urine Ketones 15 H Urine Occult Blood TRACE-INTA Urine Nitrite NEGATIVE Urine Bilirubin NEGATIVE Urine Urobilinogen 0.2 (NORMAL) Ur Leukocyte Esterase NEGATIVE Urine RBC 0-5 Urine WBC 0-3 Ur Squamous Epith Cells RARE Squamous Urine Bacteria Few Ur Microscopic Review INDICATED Urine Culture Comments NOT INDICATED PD Medical Decision Making - ED course Complexity details: reviewed old records, reviewed results, considered differential ED course: Patient 62-year-old female presenting to the emergency department with abdominal pain with nausea vomiting. Afebrile, hemodynamically stable but actively retching and emesis basin on arrival. Some epigastric and generalized tenderness with no indications peritonitis. Labs demonstrate a hypercalcemia of uncertain clinical significance. Fluids and medication for symptomatic management ordered. Imaging ordered. We will be signing out to the oncoming physician, please see their documentation for further detail. Departure - Departure Disposition: 01 Home, Self Care Clinical Impression: Exacerbation of Crohn's disease, Nausea and vomiting, Dehydration, Abdominal pain Condition: Stable Follow-Up: SUSY STOKES ARNP [Primary Care Provider] - Prescriptions: dexAMETHasone [Decadron] 4 mg PO DAILY #10 tablet HYDROcod/ACETAM 5/325 [[place] 5/325] 1 ea PO Q6H PRN #18 tablet PRN Reason: Pain Promethazine Supp [Phenergan Supp] 25 mg [place] Q6H PRN #10 supp PRN Reason: Nausea / Vomiting Comments: Small frequent fluids through the day to maintain hydration. Soft food initially and progress tomorrow as able. Use your Ondansatron at home if needed for nausea. I also prescribed Phenergan suppositories to use if needed as well. Presuming an exacerbation of your Crohn's with inflammation causing the obstruction, I would suggest Decadron steroid daily for the next 10 days. Tylenol every 4-6 hours if needed for pain. Use some antacids such as Maalox or Mylanta several times daily to help with stomach discomfort from your vomiting. I also prescribed hydrocodone/acetaminophen if needed for abdominal pains. I sent your prescriptions to your preferred pharmacy. Recheck if not improved well over the next couple of days and return if worse again. I am prescribing a short course of narcotic pain medication for you. These are potentially dangerous and addictive medications that should be used carefully. These medications may constipate you. Take an [id number] stool softener such as docusate twice daily with plenty of water while taking these medications. If you go 24 hours without a bowel movement, take [id number] MiraLAX, per package instructions. Do not drink or drive while taking these medications. If you received narcotic or sedating medications while in the emergency department do not drive for 24 hours. Store this medication in a safe, secure place and out of reach of children. It is a violation of federal law to give or sell this medication to another person or to use in a manner other than prescribed. The ED will not refill narcotic prescriptions, including prescriptions lost or stolen. You can dispose of unwanted medications at the [facility]'s office or at several pharmacies such as [email or web address]. Forms: PCP List Discharge Date/Time: 05/16/23 12:44
[2023-05-16 06:33] LABS: MAGNESIUM 1.7 mg/dL (1.7-2.3)
[2023-05-16 06:37] LABS: TROPONIN I HIGH SENSITIVITY 7.6 ng/L (2.3-14.8)
[2023-05-16] MEDS ORDERED: KETOROLAC 15 MG/ML VIAL IVP STA (08:04)
[2023-05-16] MEDS ORDERED: DEXAMETHASONE 10 MG/ML VIAL IVP STA (08:04)
[2023-05-16] MEDS ORDERED: HYDROmorphone 0.5 MG/0.5 ML SYRINGE IVP STA (08:04)
--- NOTE | 2023-05-16 08:04 | CT Report ---
PROCEDURE: ANGIO CHEST W/WO INDICATIONS: rule out pe CONTRAST: 100ml omni 300 TECHNIQUE: After the administration of intravenous contrast, 2 mm axial images were acquired from the pulmonary apices to the posterior costophrenic angles during the arterial phase. In addition, 1 mm lung kernel and 5 mm soft tissue kernel reconstructions were performed. 3-dimensional coronal oblique maximum int ensity projection (MIP) reformats, 8 mm axial MIP, and 5 mm coronal and sagittal MPR reformats were t hen performed through the thorax. For radiation dose reduction, the following was used: automated exp osure control, adjustment of mA and/or kV according to patient size. COMPARISON: None FINDINGS: Image quality: Excellent. Large vessels: No filling defects within the opacified pulmonary arteries, accounting for motion and contrast timing. No evidence of acute aortic syndrome or aortic aneurysm. Lungs and pleura: There is mild centrilobular emphysema. No consolidation. Trace pulmonary scarring a nd bronchiectasis is present at the anterior right lung base. No pleural effusions. No pneumothorax. No suspicious pulmonary nodules which require follow up. Mediastinum: Heart size is normal. No pericardial effusion. No large vessel abnormality. No mediastin al adenopathy by size criteria. Chest wall and lower neck: Thyroid is unremarkable. No axillary or supraclavicular adenopathy by size . Bones: No aggressive osseous abnormality. Upper Abdomen: Unremarkable. IMPRESSION: No pulmonary embolus. No acute pulmonary findings. Mild emphysematous change. Findings are concordant with the overnight interpretation. Reviewed by: Lorena Antoine MD on 05/16/2023 8:03 AM PDT Approved by: Lorena Antoine MD on 05/16/2023 8:03 AM PDT Station ID: [id number]
--- NOTE | 2023-05-16 08:13 | ED Physician Documentation ---
ED Addendum - Addendum Addendum: 05/16/23 08:05 On change of shift the patient is not having any nausea at this time. She is still having general abdominal distention and generalized tenderness.She and her partner are concerned about elevated blood pressure. I think this is probably more pain related. We will give some more fluids and pain medication. In the setting of Crohn's I would also add anti-inflammatories and steroid. She states she was given a steroid dose at [facility] yesterday but had not been able to keep down anything at home after discharge. Your CT scan is showing a small bowel obstruction with dilated and distended small bowel loops proximal with a transition to decompressed in the mid abdomen. In the setting of her Crohn's this may be a pseudoobstruction related inflammation. We will give more medications and fluids and see how she does with oral intake regarding disposition of home versus hospitalization. 05/16/23 12:14 Recheck of the patient is she is having improvement in pain and nausea. She is able to drink some sips of fluids. She had a little bit of crackers. She does feel that they are staying down at this point and would like to try going home. She will return if recurring pain and vomiting. She does have ondansetron ODT at home. I will also prescribe a suppository antiemetic as a backup. She is to use some antacids such as Maalox or Mylanta few times a day because of the irritated stomach from vomiting. I will prescribe steroid dosing for her daily for the next week to help with her Crohn's. Also pain medicine as needed. Disposition: The patient discharged home in stable condition. Diagnoses: Intractable nausea and vomiting 2. Dehydration 3. Exacerbation of Crohn's with pseudoobstruction 4. Abdominal pain
[2023-05-16 08:22] LABS: BILIRUBIN,URINE NEGATIVE (NEGATIVE); GLUCOSE, URINE (UA) NEGATIVE (NEGATIVE); KETONES,URINE (UA) 15 mg/dL (NEGATIVE); LEUKOCYTE ESTERASE, URINE NEGATIVE (NEGATIVE); NITRITE,URINE NEGATIVE (NEGATIVE); OCCULT BLOOD,URINE TRACE-INTA (NEGATIVE); PH,URINE 6.5 PH (5.0-7.5); PROTEIN,URINE 30 mg/dL (NEGATIVE); UROBILINOGEN,URINE 0.2 (NORMAL) E.U./dL (NORMAL)
[2023-05-16 08:23] LABS: CLARITY,URINE CLEAR (CLEAR)
[2023-05-16 08:37] LABS: BACTERIA,URINE Few /HPF (None Seen); RBC,URINE 0-5 /HPF (0-5); SQUAMOUS EPITHELIAL CELL,UR RARE Squamous (<= Few); WBC,URINE 0-3 /HPF (0-5)
--- NOTE | 2023-05-16 09:35 | CT Report ---
PROCEDURE: ABDOMEN/PELVIS W INDICATIONS: abd pain CONTRAST: 100ml omni 300 TECHNIQUE: After the administration of intravenous contrast, 5 mm thick sections acquired from the diaphragms to the symphysis. 5 mm thick coronal and sagittal reformats were acquired. For radiation dose reducti on, the following was used: automated exposure control, adjustment of mA and/or kV according to deya ent size. COMPARISON: CT of the abdomen dated 10/24/2017. FINDINGS: Image quality: Excellent. Lung bases and heart: Unremarkable. Liver: No solid mass. Gallbladder and biliary tree: Surgically absent Spleen: No splenomegaly. Pancreas: No pancreatic ductal dilation. Adrenals: No adrenal nodule. Kidneys and ureters: No hydronephrosis. No renal cystic lesion which requires follow up. There are ri ght-sided low-density cortical cystic lesions. An intermediate density 1.1 cm lesion is present withi n the midpole of the left kidney. Bowel and peritoneum: There is a small hiatal hernia. The stomach is decompressed. The duodenum and t he proximal jejunum are decompressed. The more distal jejunum and the ileum are dilated and predomina ntly fluid-filled. However, there are some regions of equalization within the more distal portions of the dilated ileum. The distal ileum is decompressed and a smooth transition point is present within the left lower quadrant. Patient is status post right hemicolectomy. Visualized portions of the colon are decompressed and demonstrate normal caliber and wall thickness. Lymph nodes: No central or retroperitoneal adenopathy. Vessels: No infrarenal aortic aneurysm. Scattered atheromatous calcifications are present throughout the abdominal aorta. PELVIS Reproductive organs: Unremarkable. Bladder: No abnormal wall thickening, accounting for underdistension. Pelvic lymph nodes: No pelvic adenopathy by size criteria. Bones: No aggressive osseous abnormality. Other: No significant ventral or inguinal hernia. Small amount of low-density free pelvic fluid is no erika. IMPRESSION: 1. Midportion of the small bowel is dilated and filled with fluid and solid appearing stool. The prox imal and distal aspect of the small bowel are decompressed. Findings are suspicious for partial bowel obstruction, likely secondary to internal hernia or other closed loop obstruction. Surgical consulta tion recommended. These findings are concordant with the overnight interpretation. Reviewed by: Lorena Antoine MD on 05/16/2023 9:34 AM PDT Approved by: Lorena Antoine MD on 05/16/2023 9:34 AM PDT Station ID: [id number]
[2023-05-16] MEDS ORDERED: iohexoL-300 100 ML VIAL IVP ONE (09:46)
[2023-05-16] MEDS ORDERED: ONDANSETRON 4 MG/2 ML VIAL IVP STA (09:54)
[2023-05-16 12:31] VITALS: BP 141/95; O2SAT 96
== END 2023-05-16 12:44 | disposition home or self-care (01) ==
LOC: ED 04:56
DX: K50.918 Crohn's disease, unspecified, with other complication (principal); R11.2 Nausea with vomiting, unspecified; E86.0 Dehydration; I50.9 Heart failure, unspecified; J44.9 Chronic obstructive pulmonary disease, unspecified; E03.9 Hypothyroidism, unspecified; F17.200 Nicotine dependence, unspecified, uncomplicated; Z79.899 Other long term (current) drug therapy
CPT/HCPCS: 36415; 71275; 74177; 80053; 81001; 83605; 83690; 83735; 84100; 84484; 85025; 93005; 96374; 96375; 99284; J1170; J1200; Q9967; 81003; 87086

== ENCOUNTER 2023-10-27 00:09 | Outpatient (CLI) | payer MEDICARE, OTHER | END 2023-10-27 00:10 | disposition critical access hospital (66) | LOC: EMS 00:09 | DX: R10.84 Generalized abdominal pain (principal); R11.2 Nausea with vomiting, unspecified | CPT/HCPCS: A0425; A0427 ==

== ENCOUNTER 2023-10-27 00:24 | Inpatient (IN) | payer MEDICARE, OTHER ==
--- NOTE | 2023-10-27 00:37 | ED Physician Documentation ---
History of Present Illness - Stated complaint Stated Complaint: ABD PAIN, CROHNS - History obtained from History obtained from: Patient - Additonal information Additional information: 63yF with pmh emphysema, crohns disease s/p ileum resection p/w epigastric abdominal pain for the past 6 hours, starting after dinner, squeezing quality, severe with associated nausea. 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: Other : Incontinence HEENT: None Psych: Depression, Anxiety, Bipolar disorder, Post traumatic stress disorder, Obsessive compulsive disorder Musculoskeletal: Chronic back pain Derm: None - Past Surgical History Past Surgical History: Yes General: Cholecystectomy, Appendectomy, Bowel surgery /GREEN MATERIAL VALUE ADDED ASSESSOR: section, Oophrectomy HEENT: Tonsil/Adenoidectomy Derm: Skin cancer surgery - Present Medications Home Medications: Ambulatory Orders Medication Instructions Recorded Confirmed Calcium Carbonate/Vitamin D3 1 tab PO DAILY 07/30/15 10/27/23 [Calcium 600-Vit D3 800 Caplet] Cholecalciferol (Vitamin D3) 1,000 unit PO DAILY 07/30/15 10/27/23 [D3-2000] Ondansetron [Zofran Odt] 4 mg PO TID PRN 12/05/16 10/27/23 Levothyroxine Sodium 175 mcg PO QDAC 09/03/18 10/27/23 Methylphenidate HCl 20 mg PO TID 09/03/18 05/16/23 [Methylphenidate ER] Albuterol 2.5 mg INH Q4H PRN #30 ml 03/23/23 10/27/23 Albuterol Sulf [Ventolin Hfa 1 - 2 puffs INH Q4HR PRN #1 each 03/23/23 10/27/23 Inhaler] Promethazine Supp [Phenergan Supp] 25 mg CO Q6H PRN #10 supp 05/16/23 10/27/23 Buspirone HCl 10 mg PO 10/27/23 Fluticasone/Salmeterol [Advair 1 each IH 10/27/23 100-50 Diskus] Gabapentin [Neurontin] 300 mg PO TID 10/27/23 10/27/23 Lisinopril [Zestril] 20 mg PO 10/27/23 Montelukast [Singulair] 10 mg PO QPM 10/27/23 10/27/23 Omeprazole 40 mg PO 10/27/23 oxyCODONE [Roxicodone] 10 mg PO TID 10/27/23 10/27/23 - Allergies Allergies/Adverse Reactions: Allergies Allergy/AdvReac Type Severity Reaction Status Date / Time quetiapine fumarate * Allergy Intermediate Hives Verified 10/27/23 00:40 [From Seroquel] Sulfa (Sulfonamide Allergy Intermediate Hives Verified 10/27/23 00:40 Antibiotics) adalimumab [From Humira] Allergy Unknown Verified 10/27/23 00:40 Penicillins Allergy Hives Verified 10/27/23 00:40 - Social History Does the pt smoke?: Yes Smoking Status: Current every day smoker Does the pt drink ETOH?: No Does the pt have substance abuse?: No - Immunizations Immunizations are current?: Yes - POLST Patient has POLST: No POLST Status: Full Code PD ED PE NORMAL - Vitals Vital signs reviewed: Yes - General General: Alert and oriented X 3, Other (elderly appearing with large body habitus) - HEENT HEENT: Atraumatic, PERRL, EOMI, Moist mucous membranes, Pharynx benign - Neck Neck: Supple, no meningeal sign - Cardiac Cardiac: RRR - Respiratory Respiratory: Other (end expiratory wheezing all lung quinn) - Abdomen Abdomen: Other (epigastrium ttp. otherwise ntnd) - Derm Derm: Normal color, Warm and dry - Extremities Extremities: No deformity, No edema - Neuro Neuro: No motor deficit, No sensory deficit Results - Vitals Vitals: Vital Signs - 24 hr 10/27/23 10/27/23 10/27/23 00:34 01:40 02:00 Temperature 36.7 C Heart Rate 109 H 90 60 Respiratory 20 15 16 Rate Blood Pressure 166/125 H 165/109 H 141/94 H O2 Saturation 98 93 98 If not protocol : Oxygen Flow, liters/minute 10/27/23 10/27/23 02:30 03:00 Temperature Heart Rate 97 93 Respiratory 18 18 Rate Blood Pressure 166/104 H 148/92 H O2 Saturation 98 96 If not protocol 2 : Oxygen Flow, liters/minute Oxygen O2 Source Nasal cannula - Labs Labs: Laboratory Tests 10/27/23 10/27/23 00:31 00:31 WBC 17.2 H RBC 4.71 Hgb 14.1 Hct 45.9 MCV 97.5 MCH 29.9 MCHC 30.7 L RDW 13.0 Plt Count 377 MPV 9.3 Neut # (Auto) 15.4 H Lymph # (Auto) 1.1 L [place] # (Auto) 0.5 Eos # (Auto) 0.0 Baso # (Auto) 0.1 Absolute Nucleated RBC 0.00 Nucleated RBC % 0.0 Sodium 140 Potassium 4.4 Chloride 101 Carbon Dioxide 26 Anion Gap 13.0 BUN 31 H Creatinine 1.1 Estimated GFR (MDRD) 50 L Glucose 176 H Calcium 11.9 H Total Bilirubin 0.7 AST 18 ALT 36 Alkaline Phosphatase 122 H Total Protein 8.0 Albumin 4.8 Globulin 3.2 Albumin/Globulin Ratio 1.5 Lipase 34 PD Medical Decision Making - ED course ED course: 63yF with pmh crohns p/w abdominal pain starting tonight with associated nausea. ems gave 4mg IV zofran and 3mg IV morphine with mild improvement in pain, but it then rebounded. additional 4mg iv zofran and 8mg IV morphine provided here in ED with improvement in pain and nausea. cbc, abdominal panel, u/a, and CT a/p ordered. IVF provided as well. doubt complete sbo given patient is passing flatus and had a small brown BM today, however she may have partial sbo given her surgical history. she also may be experiencing crohns flare given she currently is not treating the crohns medically. plan to f/u test results. Radiologist called with critical read : mid-small bowel distended, containing air and intraluminal fluid with evidence of SBO. Transition point within RLQ. ng tube order placed. dw Dr. Cobb, surgeon enterprise integration developer who will c/s in on the patient, with medicine admitting. consult placed to medicine telehealth for admission. Departure - Departure Disposition: 65 [facility] DC/Xfer Clinical Impression: Abdominal pain, SBO (small bowel obstruction) Condition: Fair Instructions: ED Abdominal Pain Female Non-Specific Abdominal Pain Comments: You were seen in the emergency department for abdominal pain. Please follow-up with your primary care provider and return to the emergency department if you have any new or worsening symptoms or other concerns.
[2023-10-27 00:41] LABS: BASOPHILS # (AUTO) 0.1 10^3/uL (0.0-0.1); BASOPHILS % (AUTO) 0.5 %; EOSINOPHILS % (AUTO) 0.2 %; HCT - HEMATOCRIT 45.9 % (37.0-47.0); HGB - HEMOGLOBIN 14.1 g/dL (12.0-16.0); LYMPHOCYTES # (AUTO) 1.1 10^3/uL (1.5-3.5); LYMPHOCYTES % (AUTO) 6.3 %; MEAN CORPUSCULAR HEMOGLOBIN 29.9 pg (27.0-31.0); MEAN CORPUSCULAR HGB CONC 30.7 g/dL (32.0-36.0); MEAN CORPUSCULAR VOLUME 97.5 fL (81.0-99.0); MEAN PLATELET VOLUME 9.3 fL (7.9-10.8); MONOCYTES # (AUTO) 0.5 10^3/uL (0.0-1.0); MONOCYTES % (AUTO) 2.7 %; NEUTROPHILS # (AUTO) 15.4 10^3/uL (1.5-6.6); NEUTROPHILS % (AUTO) 89.5 %; PLT - PLATELET COUNT 377 10^3/uL (130-450); RED BLOOD COUNT 4.71 10^6/uL (4.20-5.40); WHITE BLOOD COUNT 17.2 x10^3/uL (4.8-10.8)
[2023-10-27] MEDS: ONDANSETRON 4 MG/2 ML VIAL IVP STA (00:43)
[2023-10-27] MEDS: SODIUM CHLORIDE 0.9% 1,000 ML IV STA (00:43)
[2023-10-27] MEDS: MORPHINE 10 MG/ML VIAL IVP STA (00:43)
[2023-10-27 00:55] LABS: ALBUMIN 4.8 g/dL (3.2-5.5); ALBUMIN/GLOBULIN RATIO 1.5 (1.0-2.2); BILIRUBIN,TOTAL 0.7 mg/dL (0.2-1.0); CALCIUM 11.9 mg/dL (8.5-10.3); CREATININE 1.1 mg/dL (0.6-1.3); POTASSIUM 4.4 mmol/L (3.5-4.5)
[2023-10-27] MEDS ORDERED: iohexoL-300 100 ML VIAL ONE (02:05)
[2023-10-27] MEDS: diphenhydrAMINE INJ 50 MG/ML VIAL IVP STA (02:13)
[2023-10-27] MEDS: METOCLOPRAMIDE 10 MG/2 ML VIAL IVP STA (02:14)
[2023-10-27] MEDS: HYDROmorphone 1 MG/ML CARPUJECT IVP STA (02:15)
[2023-10-27] MEDS: iohexoL-300 100 ML VIAL IVP ONE (02:39)
[2023-10-27] MEDS ORDERED: LIDOCAINE JELLY 2% 6 ML JEL.PF.APP ONE (03:21)
[2023-10-27] MEDS: MIDAZOLAM 2 MG/2 ML VIAL IVP STA (03:25)
[2023-10-27] MEDS ORDERED: ALBUTEROL NEB 2.5 MG/3 ML INH PRN (03:25)
[2023-10-27] MEDS: LIDOCAINE 2% URO-JET 5 ML SYRINGE UR STA (03:45)
--- NOTE | 2023-10-27 04:11 | HISTORY & PHYSICAL EXAMINATION ---
Chief Complaint - Chief Complaint Chief Complaint: abd pain, nasuea, vomiting History of Present Illness - History of Present Illness HPI Comment/Other: pt with h/o crohn's disease and abd surgery presents with acute onset of abd pain + nausea / vomiting that started last night after eating dinner. no fevers, chills, chest pain, dysuria reported. no abd trauma. pt has h/o sbo. no falls. no ams. 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 Mom had dementia before she . 2 half siblings. She is not in contact with them. 3 children. Her middle child has severe schizophrenia and lives with her. As far she knows her older and younger child are healthy without high blood pressure, cancer, heart attack, stroke, or mental illness. Social History Notes: She is been to the same man, 3 times. They get and the get remarried. She has not worked for quite some time because of her Crohn's disease and is disabled. She continues to smoke half a pack per day and started at the age of 15. She has no history of alcohol abuse or recreational substance abuse. - Substance History Use: Uses substance without health or social issues: Tobacco - POLST Patient has POLST: No POLST Status: Full Code Meds/Allgy - Home Medications Home Medications: Ambulatory Orders Medication Instructions Recorded Confirmed Calcium Carbonate/Vitamin D3 1 tab PO DAILY 07/30/15 10/27/23 [Calcium 600-Vit D3 800 Caplet] Cholecalciferol (Vitamin D3) 1,000 unit PO DAILY 07/30/15 10/27/23 [D3-2000] Ondansetron [Zofran Odt] 4 mg PO TID PRN 12/05/16 10/27/23 Levothyroxine Sodium 137 mcg PO QDAC 09/03/18 10/27/23 Methylphenidate HCl 20 mg PO TID 09/03/18 05/16/23 [Methylphenidate ER] Albuterol 2.5 mg INH Q4H PRN #30 ml 03/23/23 10/27/23 Albuterol Sulf [Ventolin Hfa 1 - 2 puffs INH Q4HR PRN #1 each 03/23/23 10/27/23 Inhaler] Promethazine Supp [Phenergan Supp] 25 mg AR Q6H PRN #10 supp 05/16/23 10/27/23 Buspirone HCl 10 mg PO BID 10/27/23 10/27/23 Fluticasone/Salmeterol [Advair 1 each IH BID 10/27/23 10/27/23 100-50 Diskus] Gabapentin [Neurontin] 300 mg PO TID 10/27/23 10/27/23 Lisinopril [Zestril] 20 mg PO DAILY 10/27/23 10/27/23 Montelukast [Singulair] 10 mg PO QPM 10/27/23 10/27/23 Omeprazole 40 mg PO DAILY 10/27/23 10/27/23 oxyCODONE [Roxicodone] 10 mg PO TID 10/27/23 10/27/23 - Allergies Allergies/Adverse Reactions: Allergies Allergy/AdvReac Type Severity Reaction Status Date / Time quetiapine fumarate * Allergy Intermediate Hives Verified 10/27/23 00:40 [From Seroquel] Sulfa (Sulfonamide Allergy Intermediate Hives Verified 10/27/23 00:40 Antibiotics) adalimumab [From Humira] Allergy Unknown Verified 10/27/23 00:40 Penicillins Allergy Hives Verified 10/27/23 00:40 Review of Systems - Other Findings Other Findings: difficult to obtain fully as pt is sleepy / tired given pain medicines and meds for anxiety. talks and then falls asleep during exam Exam - Vital Signs Vital Signs: Vital Signs x48h Temp Pulse Resp BP Pulse Ox O2 Flow Rate 10/27/23 04:00 102 H 18 130/93 H 94 2 10/27/23 03:30 100 18 121/87 H 94 2 10/27/23 03:00 93 18 148/92 H 96 2 10/27/23 02:30 97 18 166/104 H 98 10/27/23 02:00 60 16 141/94 H 98 10/27/23 01:40 90 15 165/109 H 93 10/27/23 00:34 36.7 C 109 H 20 166/125 H 98 - Physical Exam Comments/Other: gen - sleepy, tries to answer questions but falls asleep heent - nc/at, ngt in place heart - per ed charting lungs - per ed charting abd - soft, compressible, hypoactive bs x4 per rn msk - no acute trauma noted or reported Conclusion/Plan - Lab Results Fish Bones: 10/27/23 05:22 10/27/23 05:22 - Other Other Results/Comments: pt with - - sbo with h/o abd surgery gen surg on case ngt placed relief ivf, pain control, ivf h/o same - abd pain d/t above morphine prn - nausea / vomiting d/t above s/p ngt placement zofran prn, ivf - leukocytosis in setting of above on cipro + flagyl f/u culture results - hyperglycemia exacerbated d/t above no reported h/o t2dm given check a1c f/u labs, cultures, replete electrolytes further orders per clinical course
[2023-10-27] MEDS ORDERED: SODIUM CHLORIDE FLUSH 0.9% 10 ML SYRINGE IVP PRN (04:13)
[2023-10-27] MEDS ORDERED: ONDANSETRON 4 MG/2 ML VIAL IVP PRN (04:13)
[2023-10-27 05:56] LABS: BASOPHILS % (AUTO) 0.4 %; HGB - HEMOGLOBIN 13.6 g/dL (12.0-16.0); LYMPHOCYTES % (AUTO) 2.5 %; MEAN CORPUSCULAR HGB CONC 30.9 g/dL (32.0-36.0); MEAN CORPUSCULAR VOLUME 97.1 fL (81.0-99.0); MEAN PLATELET VOLUME 9.1 fL (7.9-10.8); MONOCYTES % (AUTO) 5.1 %; NEUTROPHILS % (AUTO) 91.3 %; PLT - PLATELET COUNT 386 10^3/uL (130-450); RED BLOOD COUNT 4.53 10^6/uL (4.20-5.40); RED CELL DISTRIBUTION WIDTH 13.3 % (12.0-15.0); WHITE BLOOD COUNT 26.1 x10^3/uL (4.8-10.8)
[2023-10-27 06:11] LABS: ABNORMAL LYMPHS % (MANUAL) 0 %; ALBUMIN 4.3 g/dL (3.2-5.5); ALBUMIN/GLOBULIN RATIO 1.3 (1.0-2.2); BILIRUBIN,TOTAL 0.6 mg/dL (0.2-1.0); CALCIUM 10.8 mg/dL (8.5-10.3); CHOL/HDL RATIO 3.7 (<4.4); CHOLESTEROL 172 mg/dL; HDL CHOLESTEROL 47 mg/dL; LDL CHOLESTEROL,CALCULATED 87 mg/dL; LDL/HDL RATIO 1.9 (<4.4); TOTAL PROTEIN 7.7 g/dL (6.4-8.9); TRIGLYCERIDES 189 mg/dL (48-352); VLDL CHOLESTEROL 38 mg/dL
[2023-10-27] MEDS: metroNIDAZOLE 500 MG/100 ML 500 MG/100 ML BAG IV SCH (06:16)
[2023-10-27] MEDS: LACTATED RINGERS 1,000 ML IV SCH (06:16)
[2023-10-27 06:24] LABS: THYROID STIMULATING HORMONE 11.23 uIU/mL (0.34-5.60)
[2023-10-27 06:38] LABS: BAND NEUTROPHILS % (MANUAL) 19 %; DIFFERENTIAL COMMENT MANUAL DIFFERENTIAL; LYMPHOCYTES # (MANUAL) 0.8 10^3/uL (1.5-3.5); LYMPHOCYTES % (MANUAL) 3 %; NEUTROPHILS # (MANUAL) 24.3 10^3/uL (1.5-6.6); PLATELET ESTIMATE, MANUAL NORMAL (130-450,000) (NORMAL); RBC MORPHOLOGY (MULTIPLE) NORMAL APPEARANCE (NORMAL)
[2023-10-27 06:50] LABS: BILIRUBIN,URINE NEGATIVE (NEGATIVE); GLUCOSE, URINE (UA) NEGATIVE (NEGATIVE); KETONES,URINE (UA) NEGATIVE (NEGATIVE); LEUKOCYTE ESTERASE, URINE NEGATIVE (NEGATIVE); NITRITE,URINE NEGATIVE (NEGATIVE); OCCULT BLOOD,URINE NEGATIVE (NEGATIVE); PROTEIN,URINE TRACE mg/dL (NEGATIVE); UROBILINOGEN,URINE 0.2 (NORMAL) E.U./dL (NORMAL)
[2023-10-27 06:51] LABS: CLARITY,URINE CLEAR (CLEAR)
[2023-10-27] MEDS ORDERED: LEVOTHYROXINE SODIUM 200 MCG PO SCH (07:00)
[2023-10-27] MEDS: GABAPENTIN 300 MG CAPSULE PO SCH (07:03)
[2023-10-27] MEDS: LEVOTHYROXINE 100 MCG TABLET PO SCH (07:04)
[2023-10-27] MEDS: LEVOTHYROXINE 75 MCG TABLET PO SCH (07:04)
[2023-10-27] MEDS: lisinopriL 20 MG TABLET PO SCH (08:08)
[2023-10-27] MEDS: CALCIUM CARB (OYSTER SHELL) 500 MG TABLET PO SCH (08:08)
[2023-10-27] MEDS: CHOLECALCIFEROL 400 UNIT TABLET PO SCH (08:08)
[2023-10-27] MEDS: busPIRone 5 MG TABLET PO SCH (08:08)
[2023-10-27] MEDS: CIPROFLOXACIN 400 MG/200 ML 400 MG/200 ML BAG IV SCH (08:08)
[2023-10-27] MEDS: SODIUM CHLORIDE FLUSH 0.9% 10 ML SYRINGE IVP SCH (08:09)
[2023-10-27] MEDS: CHOLECALCIFEROL 25 MCG TABLET PO SCH (08:09)
[2023-10-27] MEDS: HEPARIN 5,000 UNIT/ML VIAL SUBQ SCH (08:11)
--- NOTE | 2023-10-27 08:18 | CONSULTATION NOTE ---
Referring Provider Consult Date: 10/27/23 Chief Complaint - Chief Complaint Chief Complaint: abdominal pain and nausea History of Present Illness - Admitted From Admitted From:: ED - History of Present Illness HPI Comment/Other: 63yoF presented to ED with abdominal pain, nausea and emesis that started around dinner time last night. She has a history of crohns disease: She was hospitalized with an emergent open bowel resection (ileocecectomy vs right colectomy? @ [facility]) in 2017 for what sounds by her description to be crohns associated with both stricture and f istula. She was followed by GI (Dr.Jason Desir @ ) for a while, and on Humira for a year, but stopped seeing Dr. Desir and came off the Humira about 6 mo ago (sounds like this was patient choice, possibly against medical advice). She reports a handful of bowel obstructions since the surgery with pain always on the right side. At baseline she has 2-4 watery stools per day, never bloody stools. Takes immodium to manage this. Her last BM was 24hrs ago. She reports a colonoscopy about a year ago, doesnt know results. The current pain episode was more diffuse than the usual right sided pain, but otherwise "felt like my crohns pain." An NGT was placed in the ED and since then her abdominal pain has resolved. Endorses associated baseline CP/SOB "every day", denies associated dysuria, flank pain. 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 Mom had dementia before she . 2 half siblings. She is not in contact with them. 3 children. Her middle child has severe schizophrenia and lives with her. As far she knows her older and younger child are healthy without high blood pressure, cancer, heart attack, stroke, or mental illness. Social History Notes: She is been to the same man, 3 times. They get and the get remarried. She has not worked for quite some time because of her Crohn's disease and is disabled. She continues to smoke half a pack per day and started at the age of 15. She has no history of alcohol abuse or recreational substance abuse. - Substance History Use: Uses substance without health or social issues: Tobacco - POLST Patient has POLST: No POLST Status: Full Code Meds/Allgy - Home Medications Home Medications: Ambulatory Orders Medication Instructions Recorded Confirmed Calcium Carbonate/Vitamin D3 1 tab PO DAILY 07/30/15 10/27/23 [Calcium 600-Vit D3 800 Caplet] Cholecalciferol (Vitamin D3) 1,000 unit PO DAILY 07/30/15 10/27/23 [D3-2000] Ondansetron [Zofran Odt] 4 mg PO TID PRN 12/05/16 10/27/23 Levothyroxine Sodium 137 mcg PO QDAC 09/03/18 10/27/23 Methylphenidate HCl 20 mg PO TID 09/03/18 05/16/23 [Methylphenidate ER] Albuterol 2.5 mg INH Q4H PRN #30 ml 03/23/23 10/27/23 Albuterol Sulf [Ventolin Hfa 1 - 2 puffs INH Q4HR PRN #1 each 03/23/23 10/27/23 Inhaler] Promethazine Supp [Phenergan Supp] 25 mg PA Q6H PRN #10 supp 05/16/23 10/27/23 Buspirone HCl 10 mg PO BID 10/27/23 10/27/23 Fluticasone/Salmeterol [Advair 1 each IH BID 10/27/23 10/27/23 100-50 Diskus] Gabapentin [Neurontin] 300 mg PO TID 10/27/23 10/27/23 Lisinopril [Zestril] 20 mg PO DAILY 10/27/23 10/27/23 Montelukast [Singulair] 10 mg PO QPM 10/27/23 10/27/23 Omeprazole 40 mg PO DAILY 10/27/23 10/27/23 oxyCODONE [Roxicodone] 10 mg PO TID 10/27/23 10/27/23 - Allergies Allergies/Adverse Reactions: Allergies Allergy/AdvReac Type Severity Reaction Status Date / Time quetiapine fumarate * Allergy Intermediate Hives Verified 10/27/23 00:40 [From Seroquel] Sulfa (Sulfonamide Allergy Intermediate Hives Verified 10/27/23 00:40 Antibiotics) adalimumab [From Humira] Allergy Unknown Verified 10/27/23 00:40 Penicillins Allergy Hives Verified 10/27/23 00:40 Review of Systems - Cardiovascular Cariovascular: reports: Chest pain - Respiratory Respiratory: reports: SOB at rest - Gastrointestinal Gastrointestinal: reports: Abdominal pain Exam - Vital Signs Reviewed Vital Signs: Yes Vital Signs: Vital Signs x48h Temp Pulse Pulse Resp BP BP Pulse Ox 10/27/23 07:32 10/27/23 05:20 36.4 C L 115 H 20 152/100 H 93 10/27/23 04:30 103 H 18 130/95 H 94 10/27/23 04:00 102 H 18 130/93 H 94 10/27/23 03:30 100 18 121/87 H 94 10/27/23 03:00 93 18 148/92 H 96 10/27/23 02:30 97 18 166/104 H 98 10/27/23 02:00 60 16 141/94 H 98 10/27/23 01:40 90 15 165/109 H 93 10/27/23 00:34 36.7 C 109 H 20 166/125 H 98 O2 Flow Rate 10/27/23 07:32 2 10/27/23 05:20 2 10/27/23 04:30 2 10/27/23 04:00 2 10/27/23 03:30 2 10/27/23 03:00 2 10/27/23 02:30 10/27/23 02:00 10/27/23 01:40 10/27/23 00:34 - Physical Exam General Appearance: positive: No acute distress, Alert Eyes Bilateral: positive: Normal inspection, PERRL ENT: positive: ENT inspection nml, Pharynx nml, No signs of dehydration Respiratory: positive: No respiratory distress Cardiovascular: positive: Tachycardia Abdomen: positive: Non-tender, Other (Distended with mild tympany. Absolutely no abdominal pain with deep palpation (this is after NGT was placed). Scant light gastric fluid in NGT canister.). negative: No distention Conclusion and Plan - Lab Results Laboratory Results 10/27/23 06:25: Urine Color YELLOW, Urine Clarity CLEAR, Urine pH 7.0, Ur Specific Secor 1.010, Urine Protein TRACE, Urine Glucose (UA) NEGATIVE, Urine Ketones NEGATIVE, Urine Occult Blood NEGATIVE, Urine Nitrite NEGATIVE, Urine Bilirubin NEGATIVE, Urine Urobilinogen 0.2 (NORMAL), Ur Leukocyte Esterase NEG ATIVE, Ur Microscopic Review NOT INDICATED, Urine Culture Comments NOT INDICATED 10/27/23 05:22: Triglycerides 189, Cholesterol 172, LDL Cholesterol, Calc 87, VLDL Cholesterol 38, HDL Cholesterol 47 L, LDL/HDL Ratio 1.9, Cholesterol/HDL Ratio 3.7, TSH 11.23 H 10/27/23 05:22: Sodium 139, Potassium 5.0 H, Chloride 106, Carbon Dioxide 24, Anion Gap 9.0, BUN 33 H, Creatinine 1.0, Estimated GFR (MDRD) 56 L, Glucose 147 H, Calcium 10.8 H, Magnesium 2.0, Total Bilirubin 0.6, AST 22, ALT 38, Alkaline Phosphatase 112, Total Protein 7.7, Albumin 4.3, Globulin 3.4, Albumin/Globulin Ratio 1.3 10/27/23 05:22: WBC 26.1 H, RBC 4.53, Hgb 13.6, Hct 44.0, MCV 97.1, MCH 30.0, MCHC 30.9 L, RDW 13.3, Plt Count 386, MPV 9.1, Neut # (Auto) Not Reportable, Lymph # (Auto) Not Reportable, [place] # (Auto) Not Reportable, Eos # (Auto) Not Reportable, Baso # (Auto) Not Reportable, Absolute Nucleated RBC Not Reportable, Total Counted 100, Band Neuts % (Manual) 19 H, Abnorm Lymph % (Manual) 0, Nucleated RBC % Not Reportable, Neutrophils # (Manual) 24.3 H, Lymphocytes # (Manual) 0.8 L, Monocytes # (Manual) 1.0, Eosinophils # (Manual) 0.0, Basophils # (Manual) 0.0, Differential Comment MANUAL DIFFERENTIAL, Platelet Estimate NORMAL (130-450,000), RBC Morph Micro Appear NORMAL APPEARANCE 10/27/23 00:31: Sodium 140, Potassium 4.4, Chloride 101, Carbon Dioxide 26, Anion Gap 13.0, BUN 31 H, Creatinine 1.1, Estimated GFR (MDRD) 50 L, Glucose 176 H, Calcium 11.9 H, Total Bilirubin 0.7, AST 18, ALT 36, Alkaline Phosphatase 122 H, Total Protein 8.0, Albumin 4.8, Globulin 3.2, Albumin/Globulin Ratio 1.5, Lipase 34 10/27/23 00:31: WBC 17.2 H, RBC 4.71, Hgb 14.1, Hct 45.9, MCV 97.5, MCH 29.9, MCHC 30.7 L, RDW 13.0, Plt Count 377, MPV 9.3, Neut # (Auto) 15.4 H, Lymph # (Auto) 1.1 L, [place] # (Auto) 0.5, Eos # (Auto) 0.0, Baso # (Auto) 0.1, Absolute Nucleated RBC 0.00, Nucleated RBC % 0.0 - Diagnostic Imaging Results Diagnostic Imaging Results: positive: Final report reviewed, Read independently Diagnostic Imaging Results Comments: CT abd/pel with IV contrast - moderately dilated SB loops with few areas of fecalization. No free air, trace free fluid, no abscess AXR: NGT in stomach - Diagnosis Diagnosis: 1. Crohns. 2. small bowel obstruction. - Consultation Note Consultation Note: 63yoF with crohns (currently not on medical management, history of bowel resection for fistula and stricture with subsequent recurrent SBOs) and bowel obstruction. Abdominal pain seems to have responded to NGT placement, abdominal exam is benign subsequent to NGT placement. Not passing flatus or stool at this point x24hrs. Abdominal exam and CT of abdomen do not seem to account for her WBC of 17 --> 26 with associated tachycardia. stri - recommend continued NGT decompression for now, - consider gastrograffin challenge vs CT abd/pel with oral contrast to further workup for crohns stricture (CT may be better done with at a facility that can manage her crohns) - comprehensive evaluation of other medical comorbidities per IM team (note that she is on prednisone for an oral ulcer, per her report) Dr. Medina will assume role of surgical consultation today as I am leaving [facility] General Surgery
--- NOTE | 2023-10-27 08:22 | CT Report ---
PROCEDURE: Abdomen/Pelvis W INDICATIONS: ABDOMINAL PAIN CONTRAST: Omni 300, 100mls TECHNIQUE: After the administration of intravenous contrast, a CT scan of the abdomen and pelvis was performed. Images were recorded and evaluated at appropriate window settings. Reformats: coronal and sagittal. F or radiation dose reduction, the following was used: automated exposure control, adjustment of mA and /or kV according to patient size. COMPARISON: 05/16/2023 FINDINGS: Image quality: Diagnostic Lower chest: Scattered scarring and atelectasis in the lung bases. Mild nonspecific distal esophageal wall thickening and possible small sliding hernia. Liver: Unremarkable Gallbladder and biliary system: Absent, nondilated. Pancreas: Pancreas divisum anatomy. No ductal dilation. Spleen: Nonenlarged Adrenals: No discrete nodules Kidneys: There are renal cysts. Subcentimeter lesions are too small to characterize, probably also cy sts. No complicated lesion requiring follow-up. No hydronephrosis. Vessels and lymph nodes: Main portal vein is patent. No pathologic lymph nodes by size criteria. Ther e is no abdominal aortic aneurysm. Bowel and peritoneum: Small bowel obstruction, with fluid-filled loops of small bowel predominantly i n the left abdomen. Bowel suture lines are seen. There are colonic diverticula. There is a small amou nt pelvic free fluid, which may be reactive. The colon is relatively underdistended. Body wall: Postsurgical changes Pelvis: Bladder is unremarkable. Reproductive organs are not well evaluated on this study, overall un remarkable Bones: No acute or suspicious osseous finding. IMPRESSION: Small bowel obstruction. Small amount pelvic free fluid, possibly reactive. No drainable fluid collec tion. Consider surgical consultation. There is evidence of prior abdominal surgery. Other findings as above. Agree with preliminary report. Reviewed by: Billy Alejandro MD on 10/27/2023 8:20 AM PDT Approved by: Billy Alejandro MD on 10/27/2023 8:20 AM PDT Station ID: [id number]
--- NOTE | 2023-10-27 08:23 | XRAY Report ---
PROCEDURE: No-Charge 1V Abdomen INDICATIONS: NGT placement TECHNIQUE: 1 view of the abdomen were acquired. COMPARISON: Same-day CT FINDINGS AND IMPRESSION: Enteric tube terminates in the gastric fundus. Dilated loops of small bowel better seen on CT. Limite d abdomen is otherwise unremarkable. There may be basal lung opacities that represent atelectasis. Agree with preliminary report. Reviewed by: Billy Alejandro MD on 10/27/2023 8:21 AM PDT Approved by: Billy Alejandro MD on 10/27/2023 8:21 AM PDT Station ID: [id number]
--- NOTE | 2023-10-27 08:59 | XRAY Report ---
PROCEDURE: Chest 1V INDICATIONS: Shortness of breath, Elevated WBC TECHNIQUE: One view of the chest was acquired. COMPARISON: 03/23/2023. FINDINGS: Surgical changes and devices: None. Lungs and pleura: No pleural effusions or pneumothorax. Lungs are clear. Mediastinum: Mediastinal contours appear normal. Heart size is normal. Bones and chest wall: No suspicious bony lesions. Overlying soft tissues appear unremarkable. IMPRESSION: No acute cardiopulmonary process. Reviewed by: Amol Salas MD on 10/27/2023 8:58 AM PDT Approved by: Amol Salas MD on 10/27/2023 8:58 AM PDT Station ID: [id number]
[2023-10-27] MEDS ORDERED: CALCIUM CARBONATE PO SCH (09:00)
[2023-10-27] MEDS ORDERED: CHOLECALCIFEROL 2000 UNIT PO SCH (09:00)
[2023-10-27] MEDS ORDERED: CALCIUM CARBONATE CHEW 500 MG TABLET PO SCH (09:00)
[2023-10-27] MEDS ORDERED: [UNRECOGNIZED DRUG - OTHER] PO SCH (09:00)
[2023-10-27] MEDS ORDERED: BUSPIRONE HCL 10 MG PO SCH (09:00)
[2023-10-27] MEDS ORDERED: VITAMIN D3 PO SCH (09:00)
[2023-10-27] MEDS: DIATR MEGLU/DIATRIZOATE SODIUM 120 ML BOTTLE PO ONE (09:29)
[2023-10-27 09:39] LABS: ESTIMATED AVERAGE GLUCOSE 111 mg/dL (70-100); HEMOGLOBIN A1c% 5.5 % (4.27-6.07)
[2023-10-27] MEDS: PANTOPRAZOLE 40 MG TABLET PO SCH (11:33)
--- NOTE | 2023-10-27 13:25 | XRAY Report ---
PROCEDURE: Abdomen 1 V INDICATIONS: SBO, GASTROGRAFFIN CHALLENGE TECHNIQUE: One view of the abdomen acquired. COMPARISON: None. FINDINGS: Surgical changes and devices: Surgical clips are noted in gallbladder fossa. NG tube tip is in the pr oximal stomach lumen.. Bowel: Oral contrast material is seen in distal small bowel loops, colon loops extending to sigmoid c olon and rectum. Soft tissues: No suspicious abdominal calcifications. Visualized solid organ contours appear normal in size. Bones: No suspicious bony lesions. IMPRESSION: Oral contrast material is seen in sigmoid colon and rectum. No evidence of obstruction. No contrast e xtravasation. No gross free air. Reviewed by: Guero Borges MD on 10/27/2023 1:24 PM PDT Approved by: Guero Borges MD on 10/27/2023 1:24 PM PDT Station ID: [id number]
[2023-10-27] MEDS: ACETAMINOPHEN 325 MG TABLET PO PRN (13:43)
[2023-10-27] MEDS: oxyCODONE 5 MG TABLET PO PRN (13:44)
--- NOTE | 2023-10-27 15:05 | PROVIDER PROGRESS NOTE ---
Assessment/Plan - Problem List (1) Small bowel obstruction Assessment/Plan: --Appears to have resolved on latest imaging. --Plan to remove NGT and advance diet. (2) Acute Crohn's disease Assessment/Plan: --Patient fired her GI. She will need referral for another one. --Does not appear to be having a Crohn's flare. Just finished a course of Prednisone for oral ulcers. --Previously on Humira but she felt it gave her new onset CHF. (3) Hypothyroidism Qualifiers: Hypothyroidism type: acquired Qualified Code(s): E03.9 - Hypothyroidism, unspecified Assessment/Plan: --TSH quite elevated. She states she is taking her levothyroxine. --Will defer management to her PCP. --Continue Levothyroxine while inpatient. - Current Meds Current Meds: Current Medications Generic Name Dose Route Start Last Admin Trade Name Freq PRN Reason Stop Dose Admin Acetaminophen 650 mg 10/27/23 04:13 10/27/23 13:43 Acetaminophen 325 Mg Tablet PO 650 mg Q6H PRN Administration Pain 1 to 4, or Fever Buspirone HCl 10 mg 10/27/23 09:00 10/27/23 08:08 Buspirone 5 Mg Tablet PO 10 mg BID JENNY Administration Calcium Carbonate/Glycine 500 mg 10/27/23 09:00 10/27/23 08:08 Calcium Carb (Oyster Shell) 500 Mg Tablet PO 500 mg DAILY JENNY Administration Cholecalciferol 25 mcg 10/27/23 09:00 10/27/23 08:09 Cholecalciferol 25 Mcg Tablet PO 25 mcg DAILY JENNY Administration Gabapentin 300 mg 10/27/23 06:00 10/27/23 13:04 Gabapentin 300 Mg Capsule PO 300 mg TID JENNY Administration Heparin Sodium (Porcine) 5,000 unit 10/27/23 09:00 10/27/23 08:11 Heparin 5,000 Unit/Ml Vial SUBQ 5,000 unit BID JENNY Administration Lactated Ringer's 1,000 mls @ 100 mls/hr 10/27/23 05:00 10/27/23 14:26 Lr IV 100 mls/hr .Q10H JENNY Infusion Ciprofloxacin 400 mg in 200 mls @ 200 mls/hr 10/27/23 05:00 10/27/23 09:30 Cipro 400 Mg/200 Ml IV Infused Q12H JENNY Infusion Metronidazole 500 mg in 100 mls @ 100 mls/hr 10/27/23 05:00 10/27/23 14:05 Flagyl 500 Mg/100 Ml IV Infused Q8H JENNY Infusion Levothyroxine Sodium 100 mcg 10/27/23 07:00 10/27/23 07:04 Levothyroxine 100 Mcg Tablet PO Not Given QDAC JENNY Levothyroxine Sodium 75 mcg 10/27/23 07:00 10/27/23 07:04 Levothyroxine 75 Mcg Tablet PO Not Given QDAC JENNY Lisinopril 20 mg 10/27/23 09:00 10/27/23 08:08 Lisinopril 20 Mg Tablet PO 20 mg DAILY JENNY Administration Oxycodone HCl 5 mg 10/27/23 04:13 10/27/23 13:44 Oxycodone 5 Mg Tablet PO 5 mg Q4HR PRN Administration Pain 5 to 7 Pantoprazole Sodium 40 mg 10/27/23 11:00 10/27/23 11:33 Pantoprazole 40 Mg Tablet PO 40 mg QDAC JENNY Administration Sodium Chloride 10 ml 10/27/23 09:00 10/27/23 08:09 Sodium Chloride Flush 0.9% 10 Ml Syringe IVP 10 ml 0100,0900,1700 JENNY Administration - Lab Result Fish Bone Diagrams: 10/27/23 05:22 10/27/23 05:22 - Additional Planning My Orders: My Active Orders 10/27/23 08:34 Blood Culture [CULTURE, BLOOD #1] [] Routine 10/27/23 08:38 Blood Culture [CULTURE, BLOOD #2] [] Routine 10/27/23 09:25 Insert NG Tube [RC] ONCE NG Tube Care [RC] Q4HR 10/27/23 11:00 Pantoprazole [Protonix] 40 mg PO QDAC 10/27/23 11:02 NPO except Meds [DIET] Subjective - Subjective Patient Reports: Feeling Better, Resting Comfortably, No Complaints Objective Vital Signs: Vital Signs - 24 hr 10/27/23 10/27/23 10/27/23 00:34 01:40 02:00 Temperature 36.7 C Heart Rate 109 H 90 60 Heart Rate [ Brachial] Respiratory 20 15 16 Rate Blood Pressure 166/125 H 165/109 H 141/94 H Blood Pressure [Left Brachial artery] Blood Pressure [Right Brachial artery] O2 Saturation 98 93 98 If not protocol : Oxygen Flow, liters/minute 10/27/23 10/27/23 10/27/23 02:30 03:00 03:30 Temperature Heart Rate 97 93 100 Heart Rate [ Brachial] Respiratory 18 18 18 Rate Blood Pressure 166/104 H 148/92 H 121/87 H Blood Pressure [Left Brachial artery] Blood Pressure [Right Brachial artery] O2 Saturation 98 96 94 If not protocol 2 2 : Oxygen Flow, liters/minute 10/27/23 10/27/23 10/27/23 04:00 04:30 05:20 Temperature 36.4 C L Heart Rate 102 H 103 H Heart Rate [ 115 H Brachial] Respiratory 18 18 20 Rate Blood Pressure 130/93 H 130/95 H Blood Pressure [Left Brachial artery] Blood Pressure 152/100 H [Right Brachial artery] O2 Saturation 94 94 93 If not protocol 2 2 2 : Oxygen Flow, liters/minute 10/27/23 10/27/23 10/27/23 07:30 07:32 08:34 Temperature 36.5 C Heart Rate Heart Rate [ 92 Brachial] Respiratory 18 Rate Blood Pressure Blood Pressure 121/86 H [Left Brachial artery] Blood Pressure [Right Brachial artery] O2 Saturation 94 If not protocol 2 2 : Oxygen Flow, liters/minute 10/27/23 13:00 Temperature 36.6 C Heart Rate Heart Rate [ 97 Brachial] Respiratory 18 Rate Blood Pressure Blood Pressure 116/78 [Left Brachial artery] Blood Pressure [Right Brachial artery] O2 Saturation 97 If not protocol : Oxygen Flow, liters/minute Oxygen O2 Source Room air I&O (Last 24 Hrs): Intake and Output Totals x24h 10/25/23 10/26/23 10/27/23 23:59 23:59 23:59 Intake Total 2963.334 Output Total 800 Balance 2163.334 General: Alert, Oriented x3, Cooperative, No acute distress Cardiovascular: Regular rate, Normal S1, Normal S2, No murmurs Respiratory: Chest non-tender, No respiratory distress, Breath sounds nml Abdomen: Normal bowel sounds, Soft, No tenderness, No hepatospenomegaly, No masses - Results Results: Laboratory Results WBC 26.1 x10^3/uL (4.8-10.8) H 10/27/23 05:22 RBC 4.53 10^6/uL (4.20-5.40) 10/27/23 05:22 Hgb 13.6 g/dL (12.0-16.0) 10/27/23 05:22 Hct 44.0 % (37.0-47.0) 10/27/23 05:22 MCV 97.1 fL (81.0-99.0) 10/27/23 05:22 MCH 30.0 pg (27.0-31.0) 10/27/23 05:22 MCHC 30.9 g/dL (32.0-36.0) L 10/27/23 05:22 RDW 13.3 % (12.0-15.0) 10/27/23 05:22 Plt Count 386 10^3/uL (130-450) 10/27/23 05:22 MPV 9.1 fL (7.9-10.8) 10/27/23 05:22 Neut # (Auto) Not Reportable 10/27/23 05:22 Lymph # (Auto) Not Reportable 10/27/23 05:22 [place] # (Auto) Not Reportable 10/27/23 05:22 Eos # (Auto) Not Reportable 10/27/23 05:22 Baso # (Auto) Not Reportable 10/27/23 05:22 Absolute Nucleated RBC Not Reportable 10/27/23 05:22 Total Counted 100 10/27/23 05:22 Band Neuts % (Manual) 19 % (0-10) H 10/27/23 05:22 Abnorm Lymph % (Manual) 0 % 10/27/23 05:22 Nucleated RBC % Not Reportable 10/27/23 05:22 Neutrophils # (Manual) 24.3 10^3/uL (1.5-6.6) H 10/27/23 05:22 Lymphocytes # (Manual) 0.8 10^3/uL (1.5-3.5) L 10/27/23 05:22 Monocytes # (Manual) 1.0 10^3/uL (0.0-1.0) 10/27/23 05:22 Eosinophils # (Manual) 0.0 10^3/uL (0-0.7) 10/27/23 05:22 Basophils # (Manual) 0.0 10^3/uL (0-0.1) 10/27/23 05:22 Differential Comment MANUAL DIFFERENTIAL 10/27/23 05:22 Platelet Estimate NORMAL (130-450,000) (NORMAL) 10/27/23 05:22 RBC Morph Micro Appear NORMAL APPEARANCE (NORMAL) 10/27/23 05:22 Sodium 139 mmol/L (135-145) 10/27/23 05:22 Potassium 5.0 mmol/L (3.5-4.5) H 10/27/23 05:22 Chloride 106 mmol/L (101-111) 10/27/23 05:22 Carbon Dioxide 24 mmol/L (21-32) 10/27/23 05:22 Anion Gap 9.0 (6-13) 10/27/23 05:22 BUN 33 mg/dL (6-20) H 10/27/23 05:22 Creatinine 1.0 mg/dL (0.6-1.3) 10/27/23 05:22 Estimated GFR (MDRD) 56 (>89) L 10/27/23 05:22 Glucose 147 mg/dL (74-104) H 10/27/23 05:22 Estimat Average Glucose 111 mg/dL (70-100) H 10/27/23 05:39 Hemoglobin A1c % 5.5 % (4.27-6.07) 10/27/23 05:39 Calcium 10.8 mg/dL (8.5-10.3) H 10/27/23 05:22 Magnesium 2.0 mg/dL (1.7-2.3) 10/27/23 05:22 Total Bilirubin 0.6 mg/dL (0.2-1.0) 10/27/23 05:22 AST 22 IU/L (10-42) 10/27/23 05:22 ALT 38 IU/L (10-60) 10/27/23 05:22 Alkaline Phosphatase 112 IU/L (42-121) 10/27/23 05:22 Total Protein 7.7 g/dL (6.4-8.9) 10/27/23 05:22 Albumin 4.3 g/dL (3.2-5.5) 10/27/23 05:22 Globulin 3.4 g/dL (2.1-4.2) 10/27/23 05:22 Albumin/Globulin Ratio 1.3 (1.0-2.2) 10/27/23 05:22 Triglycerides 189 mg/dL (48-352) 10/27/23 05:22 Cholesterol 172 mg/dL (-200) 10/27/23 05:22 LDL Cholesterol, Calc 87 mg/dL (-129) 10/27/23 05:22 VLDL Cholesterol 38 mg/dL 10/27/23 05:22 HDL Cholesterol 47 mg/dL (60-) L 10/27/23 05:22 LDL/HDL Ratio 1.9 (<4.4) 10/27/23 05:22 Cholesterol/HDL Ratio 3.7 (<4.4) 10/27/23 05:22 Lipase 34 U/L (11-82) 10/27/23 00:31 Vitamin B12 163 pg/mL (180-914) L 10/27/23 08:34 Procalcitonin Immunoas 0.29 ng/mL (<0.5) 10/27/23 08:34 TSH 11.23 uIU/mL (0.34-5.60) H 10/27/23 05:22 Urine Color YELLOW 10/27/23 06:25 Urine Clarity CLEAR (CLEAR) 10/27/23 06:25 Urine pH 7.0 PH (5.0-7.5) 10/27/23 06:25 Ur Specific [place] 1.010 (1.002-1.030) 10/27/23 06:25 Urine Protein TRACE mg/dL (NEGATIVE) 10/27/23 06:25 Urine Glucose (UA) NEGATIVE mg/dL (NEGATIVE) 10/27/23 06:25 Urine Ketones NEGATIVE mg/dL (NEGATIVE) 10/27/23 06:25 Urine Occult Blood NEGATIVE (NEGATIVE) 10/27/23 06:25 Urine Nitrite NEGATIVE (NEGATIVE) 10/27/23 06:25 Urine Bilirubin NEGATIVE (NEGATIVE) 10/27/23 06:25 Urine Urobilinogen 0.2 (NORMAL) E.U./dL (NORMAL) 10/27/23 06:25 Ur Leukocyte Esterase NEGATIVE (NEGATIVE) 10/27/23 06:25 Ur Microscopic Review NOT INDICATED 10/27/23 06:25 Urine Culture Comments NOT INDICATED 10/27/23 06:25 - Procedures Procedures: Procedures VENOUS CATHETERIZATION NEC (12/10/13)
--- NOTE | 2023-10-27 15:32 | PHARMACY PROGRESS NOTE ---
- Best Possible Medication History Admit Date and Time: 10/27/23 1102 Processed by: Nursing Medications reviewed in ED?: Yes Medication History completed: Yes Secondary Source(s): Physician records, Insurance records As the person ultimately responsible for medication therapy, providers are able to order a medication from an existing home medication list in [facility] via the "Reconcile Routine" prior to Confirmation of that medication by manager client support. Such practice is discouraged except when the physician, in their clinical judgment, deems that a medical need exists for a medication without regard to previous use.
[2023-10-27] MEDS: MORPHINE 2 MG/ML CARPUJECT IVP PRN (17:30)
[2023-10-27] MEDS: MONTELUKAST 10 MG TABLET PO SCH (21:22)
[2023-10-28 05:10] VITALS: O2SAT 98
[2023-10-28 08:25] LABS: BASOPHILS % (AUTO) 0.3 %; EOSINOPHILS # (AUTO) 0.2 10^3/uL (0.0-0.7); EOSINOPHILS % (AUTO) 2.7 %; HCT - HEMATOCRIT 34.5 % (37.0-47.0); HGB - HEMOGLOBIN 10.8 g/dL (12.0-16.0); LYMPHOCYTES # (AUTO) 1.3 10^3/uL (1.5-3.5); LYMPHOCYTES % (AUTO) 20.6 %; MEAN CORPUSCULAR HEMOGLOBIN 30.3 pg (27.0-31.0); MEAN CORPUSCULAR HGB CONC 31.3 g/dL (32.0-36.0); MEAN CORPUSCULAR VOLUME 96.9 fL (81.0-99.0); MEAN PLATELET VOLUME 8.6 fL (7.9-10.8); MONOCYTES # (AUTO) 0.5 10^3/uL (0.0-1.0); MONOCYTES % (AUTO) 7.8 %; NEUTROPHILS # (AUTO) 4.3 10^3/uL (1.5-6.6); NEUTROPHILS % (AUTO) 68.3 %; PLT - PLATELET COUNT 239 10^3/uL (130-450); RED BLOOD COUNT 3.56 10^6/uL (4.20-5.40); RED CELL DISTRIBUTION WIDTH 13.6 % (12.0-15.0); WHITE BLOOD COUNT 6.3 x10^3/uL (4.8-10.8)
--- NOTE | 2023-10-28 10:12 | Discharge Plan ---
Discharge Plan Problem Reviewed?: Yes Disposition: Home, Self Care Condition: Fair Prescriptions: Ciprofloxacin HCl 1 tablet PO BID 7 Days #14 tablet metroNIDAZOLE [Flagyl] 500 mg PO BID 7 Days #14 tablet Diet: Soft (Advance over the next week to a regular diet.) Activity Restrictions: No Restrictions Instruction Topics: ED Abdominal Pain Female Non-Specific Abdominal Pain Health Concerns: Please follow up with your PCP. You will need another referral to GI. Additional Instructions or Follow Up instructions: You were seen in the emergency department for abdominal pain. Please follow-up with your primary care provider and return to the emergency department if you have any new or worsening symptoms or other concerns. No Smoking: If you smoke, Please STOP! Call for help.
--- NOTE | 2023-10-28 10:13 | DISCHARGE SUMMARY ---
Discharge Summary Admit Date: 10/27/23 Discharge Date: 10/28/23 Discharging Provider: Shivani Doss Code Status: Attempt Resuscitation Condition at Discharge: Good Discharge Disposition: 01 Home, Self Care - HPI History of Present Illness: pt with h/o crohn's disease and abd surgery presents with acute onset of abd pain + nausea / vomiting that started last night after eating dinner. no fevers, chills, chest pain, dysuria reported. no abd trauma. pt has h/o sbo. no falls. no ams. - HOSPITAL COURSE Hospital Course: Patient is a 63-year-old female who presented to the ED due to complaints of abdominal pain with associated nausea and vomiting after eating dinner. A CT abdomen/pelvis was performed which revealed a small bowel obstruction. An NG tube was inserted and she was admitted to the floor. Patient had minimal output from her NG tube and her symptoms had essentially resolved after insertion of the tube. A Gastrografin challenge was performed which revealed Gastrografin extending throughout the colon. Her NG tube was rem evelia and she was able to tolerate a diet. Patient was ultimately discharged home. She was placed on oral ciprofloxacin and metronidazole due to her prior history of inflammatory bowel disease. - ALLERGIES Allergies/Adverse Reactions: Allergies Allergy/AdvReac Type Severity Reaction Status Date / Time quetiapine fumarate * Allergy Intermediate Hives Verified 10/27/23 00:40 [From Seroquel] Sulfa (Sulfonamide Allergy Intermediate Hives Verified 10/27/23 00:40 Antibiotics) adalimumab [From Humira] Allergy Unknown Verified 10/27/23 00:40 Penicillins Allergy Hives Verified 10/27/23 00:40 - MEDICATIONS Home Medications: Ambulatory Orders Medication Instructions Recorded Confirmed Calcium Carbonate/Vitamin D3 1 tab PO DAILY 07/30/15 10/27/23 [Calcium 600-Vit D3 800 Caplet] Cholecalciferol (Vitamin D3) 1,000 unit PO DAILY 07/30/15 10/27/23 [D3-2000] Ondansetron [Zofran Odt] 4 mg PO TID PRN 12/05/16 10/27/23 Levothyroxine Sodium 137 mcg PO QDAC 09/03/18 10/27/23 Albuterol Sulf [Ventolin Hfa 1 - 2 puffs INH Q4HR PRN #1 each 03/23/23 10/27/23 Inhaler] Promethazine Supp [Phenergan Supp] 25 mg KS Q6H PRN #10 supp 05/16/23 10/27/23 Buspirone HCl 20 mg PO BID 10/27/23 10/27/23 Famotidine 40 mg PO DAILY 10/27/23 10/27/23 Fluticasone/Salmeterol [Advair Hfa 1 puffs INH BID 10/27/23 10/27/23 115-21 Mcg Inhaler] Gabapentin [Neurontin] 300 mg PO TID 10/27/23 10/27/23 Lisinopril [Zestril] 20 mg PO DAILY 10/27/23 10/27/23 Montelukast [Singulair] 10 mg PO QPM 10/27/23 10/27/23 Omeprazole 40 mg PO DAILY 10/27/23 10/27/23 Spironolactone [Aldactone] 25 mg PO DAILY 10/27/23 10/27/23 Tizanidine HCl [Zanaflex] 2 mg PO TID PRN 10/27/23 10/27/23 oxyCODONE [Roxicodone] 10 mg PO TID PRN 10/27/23 10/27/23 Ciprofloxacin HCl 1 tablet PO BID 7 Days #14 tablet 10/28/23 metroNIDAZOLE [Flagyl] 500 mg PO BID 7 Days #14 tablet 10/28/23 - PHYSICAL EXAM AT DISCHARGE General Appearance: positive: No acute distress, Alert Respiratory: positive: Chest non-tender, No respiratory distress, Breath sounds nml Cardiovascular: positive: Regular rate & rhythm, No murmur, No gallop Abdomen: positive: Non-tender, No organomegaly, Nml bowel sounds, No distention - LABS Result Diagrams: 10/28/23 08:18 10/27/23 05:22 - FOLLOW UP Follow Up: Patient to follow-up with her PCP and to establish care with a new literature teacher. - TIME SPENT Time Spent in Discharge (Minutes): 30
[2023-10-28 10:47] VITALS: BP 136/80
== END 2023-10-28 11:25 | disposition home or self-care (01) | DRG 389 ==
LOC: EDUNIT# → ED 00:24 → MS2 04:13 → OBSVTOIN 11:02
PROVIDERS: ADMIT Student in an Organized Health Care Education/Training Program; ATTEND Family Medicine
DX: K56.609 Unspecified intestinal obstruction, unspecified as to partial versus complete obstruction (principal); K50.90 Crohn's disease, unspecified, without complications; I50.9 Heart failure, unspecified; J44.9 Chronic obstructive pulmonary disease, unspecified; F17.200 Nicotine dependence, unspecified, uncomplicated; R00.0 Tachycardia, unspecified; F41.9 Anxiety disorder, unspecified; D72.829 Elevated white blood cell count, unspecified; R40.0 Somnolence; R73.9 Hyperglycemia, unspecified; Z56.0 Unemployment, unspecified; Z79.890 Hormone replacement therapy; Z79.899 Other long term (current) drug therapy; Z90.49 Acquired absence of other specified parts of digestive tract
CPT/HCPCS: 36415; 71045; 74018; 74177; 80053; 80061; 81003; 82607; 83036; 83690; 83735; 84145; 84443; 85025; 87040; A9270; J1170; J1200; J2765; J7120; Q9963; Q9967; 81001; 83721; 87086; 96374; 96375; 99285

== ENCOUNTER 2023-12-20 17:20 | Emergency (ER) | payer MEDICARE, OTHER ==
--- NOTE | 2023-12-20 18:00 | XRAY Report ---
PROCEDURE: Elbow 3+V LT INDICATIONS: Trauma TECHNIQUE: 3 views of the elbow were acquired. COMPARISON: X-ray forearm 12/20/2023 FINDINGS: Bones: No fractures or dislocations. No suspicious bony lesions. Soft tissues: Mild to moderate effusion. No suspicious soft tissue calcifications or masses. IMPRESSION: Mild effusion. No visualized acute fracture or dislocation. However, occult injury cannot be excluded . Recommend short interval imaging follow-up in 7-10 days as clinically indicated for additional eval uation. Reviewed by: Nayla Tomas MD on 12/20/2023 5:58 PM PDT Approved by: Nayla Tomas MD on 12/20/2023 5:58 PM PDT Station ID: [id number]
--- NOTE | 2023-12-20 18:00 | XRAY Report ---
PROCEDURE: Forearm LT INDICATIONS: Trauma TECHNIQUE: 2 views of the forearm were acquired. COMPARISON: X-ray elbow 12/20/2023 FINDINGS: Bones: No fractures or dislocations. No suspicious bony lesions. Soft tissues: No suspicious soft tissue calcifications or masses. IMPRESSION: No visualized acute fracture or dislocation. However, occult injury cannot be excluded. Recommend roberth rt interval imaging follow-up in 7-10 days as clinically indicated for additional evaluation. Reviewed by: Nayla Tomas MD on 12/20/2023 5:59 PM PDT Approved by: Nayla Tomas MD on 12/20/2023 5:59 PM PDT Station ID: [id number]
--- NOTE | 2023-12-20 18:45 | ED Physician Documentation ---
PD HPI UPPER EXT INJURY - Stated complaint Stated Complaint: FALL/LT ARM INJ - Chief complaint Chief Complaint: Trauma Ext - History obtained from History obtained from: Patient, Family - History of Present Illness Location: Left, Elbow Type of injury: Fall - Additonal information Additional information: Patient was out for a walk about an hour and a half ago and tripped over a lip and the pavement in fell. She landed onto her left elbow. She presents now with left elbow and forearm pain. She did not hit her head and had a no loss of consciousness. Pain primarily in the Left elbow now, some radiation up into the left upper arm. No treatment prior to arrival. 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: Other : Incontinence HEENT: None Psych: Depression, Anxiety, Bipolar disorder, Post traumatic stress disorder, Obsessive compulsive disorder Musculoskeletal: Chronic back pain Derm: None - Past Surgical History Past Surgical History: Yes General: Cholecystectomy, Appendectomy, Bowel surgery /AIR[employer] TECHNICAL OFFICER: section, Oophrectomy HEENT: Tonsil/Adenoidectomy Derm: Skin cancer surgery - Present Medications Home Medications: Ambulatory Orders Medication Instructions Recorded Confirmed Lisinopril [Zestril] 20 mg PO DAILY 10/27/23 12/20/23 Levothyroxine Sodium [Synthroid] 137 mcg PO DAILY 12/20/23 12/20/23 oxyCODONE [Roxicodone] 5 mg PO Q8H PRN #10 tablet 12/20/23 - Allergies Allergies/Adverse Reactions: Allergies Allergy/AdvReac Type Severity Reaction Status Date / Time quetiapine fumarate * Allergy Intermediate Hives Verified 12/20/23 17:23 [From Seroquel] Sulfa (Sulfonamide Allergy Intermediate Hives Verified 12/20/23 17:23 Antibiotics) adalimumab [From Humira] Allergy Unknown Verified 12/20/23 17:23 Penicillins Allergy Hives Verified 12/20/23 17:23 - Social History Does the pt smoke?: Yes Smoking Status: Current every day smoker Does the pt drink ETOH?: No Does the pt have substance abuse?: No - Immunizations Immunizations are current?: Yes - POLST Patient has POLST: No POLST Status: Full Code PD ED PE NORMAL - Vitals Vital signs reviewed: Yes - General General: Alert and oriented X 3, No acute distress, Well developed/nourished - HEENT HEENT: Atraumatic, Moist mucous membranes - Derm Derm: Normal color, Warm and dry, Other (Light contusion and abrasion left elbow) - Extremities Extremities: No deformity, Other (Tenderness of the left elbow and distal humerus. No obvious deformity. Able to flex and extend though is uncomfortable. No other extremity injuries) Results - Vitals Vitals: Vital Signs - 24 hr 12/20/23 17:23 Temperature 36.8 C Heart Rate 90 Respiratory 16 Rate Blood Pressure 143/78 H O2 Saturation 98 Oxygen O2 Source Room air - Rads (name of study) No standard instances Relevant Findings:: Final report received PD Medical Decision Making - ED course Complexity details: reviewed results, re-evaluated patient, d/w patient ED course: 63-year-old female presented with left elbow pain after a fall as determined HPI. On exam she has a contusion and abrasion of the left elbow no obvious deformity. X-rays show a mild to moderate effusion, no fractures. I discussed with patient that she may have a tiny occult fracture versus effusion and recommended supportive measures at this point including cool compress, sling for comfort, light range of motion activity, ibuprofen and Tylenol for pain I have given her 10 tablets of oxycodone to use only as needed. Patient was advised if no improvement in 7 to 10 days to follow-up with PCP for repeat imaging of the area. Departure - Departure Disposition: 01 Home, Self Care Clinical Impression: Elbow injury Qualifiers: Encounter type: initial encounter Laterality: left Qualified Code(s): S59.902A - Unspecified injury of left elbow, initial encounter Condition: Good Instructions: ED Contusion Elbow Prescriptions: oxyCODONE [Roxicodone] 5 mg PO Q8H PRN #10 tablet PRN Reason: Pain >8 Comments: Your x-rays do not show any broken bones but sometimes it there are tiny fractures in the elbow that we do not see until later on. I recommend that you use a cool compress, and sling for pain control and you can have a repeat x-ray in 7 to 10 days if you are still having pain in this area. Do take your arm out of the sling and lightly flex and extend to keep range of motion. Do this several times a day. You can take Tylenol or ibuprofen for pain but I have also prescribed a stronger pain medication to use only if absolutely necessary. I am prescribing a short course of narcotic pain medication for you. These are potentially dangerous and addictive medications that should be used carefully. These medications may constipate you. Take an otbt-mbn-swxaaey stool softener (docusate) twice daily with plenty of water while taking these medications. If you go 24 hours without a bowel movement, take dbhg-dog-[id number] miralax, per package instructions. Do not drink or drive while taking these medications. If you received narcotic or sedating medications while in the emergency department, do not drive for 24 hours. Store this medication in a safe, secure place and out of reach of children. It is a violation of federal law to give or sell this medication to another person or to use in a manner other than prescribed. The ED will not refill narcotic prescriptions, including prescriptions lost or stolen. To dispose of unwanted medications: 1. [facility] [place] [place] provides a drop box for medication in pill form only (no liquids) 8:00 am to 4:30 p.m. Monday-Monday in the lobby of the [facility], [address] Empty pills into ziplock bag before disposal. Call [phone] for information. 2.[employer] is a free service available to all [facility] [place] residents. Go to [email or web address] Note that many narcotic pain relievers also contain Tylenol/acetaminophen. Please ensure that your total dose of acetaminophen from all sources does not exceed 3 g (3000 mg) per day. Forms: PCP List
[2023-12-20 19:02] VITALS: BP 132/87; O2SAT 99
== END 2023-12-20 18:54 | disposition home or self-care (01) ==
LOC: ED 17:20
DX: S59.902A Unspecified injury of left elbow, initial encounter (principal); W01.0XXA Fall on same level from slipping, tripping and stumbling without subsequent striking against object, initial encounter; Y93.01 Activity, walking, marching and hiking; I50.9 Heart failure, unspecified; J44.9 Chronic obstructive pulmonary disease, unspecified; E03.9 Hypothyroidism, unspecified; F17.200 Nicotine dependence, unspecified, uncomplicated; Z79.899 Other long term (current) drug therapy
CPT/HCPCS: 99283

== ENCOUNTER 2023-12-25 07:30 | Outpatient (CLI) | payer MEDICARE, OTHER ==
--- NOTE | 2023-12-25 11:49 | XRAY Report ---
PROCEDURE: Forearm LT INDICATIONS: FOREARM PAIN, LEFT TECHNIQUE: 2 views of the forearm were acquired. COMPARISON: Left forearm radiograph on December 20, 2023. FINDINGS: Bones: No fractures or dislocations. Normal alignment. No suspicious bony lesions. Soft tissues: No suspicious soft tissue calcifications or masses. IMPRESSION: No acute bony abnormality. Reviewed by: Justine Low MD on 12/25/2023 11:47 AM PDT Approved by: Justine Low MD on 12/25/2023 11:47 AM PDT Station ID: [id number]
--- NOTE | 2023-12-25 14:46 | XRAY Report ---
PROCEDURE: Elbow 3+V LT INDICATIONS: FOREARM PAIN, LEFT TECHNIQUE: 3 views of the elbow were acquired. COMPARISON: Left elbow radiograph on December 20, 2023. FINDINGS: Bones: No definite fractures or dislocations. No suspicious bony lesions. Soft tissues: Moderate effusion. No suspicious soft tissue calcifications or masses. IMPRESSION: No definite fracture or dislocation; however, there is a moderate effusion. Findings are suspicious f or a radiographically occult fracture. If clinical symptoms persist, consider cross-sectional imaging for further evaluation. Reviewed by: Justine Low MD on 12/25/2023 2:45 PM PDT Approved by: Justine Low MD on 12/25/2023 2:45 PM PDT Station ID: [id number]
== END 2023-12-25 07:45 | disposition home or self-care (01) ==
LOC: DI.N 07:30
PROVIDERS: ATTEND Physician Assistant Medical
DX: M25.422 Effusion, left elbow (principal); M79.632 Pain in left forearm

== ENCOUNTER 2024-01-02 14:21 | Outpatient (CLI) | payer MEDICARE, OTHER | END 2024-01-02 14:22 | disposition home or self-care (01) | LOC: DI.N 14:21 | PROVIDERS: ATTEND Physician Assistant Surgical | DX: Z53.9 Procedure and treatment not carried out, unspecified reason (principal) ==

== ENCOUNTER 2024-01-03 13:49 | Outpatient (CLI) | payer MEDICARE, OTHER ==
--- NOTE | 2024-01-04 17:33 | XRAY Report ---
PROCEDURE: Elbow 3+V LT INDICATIONS: UNSPECIFIED FRACTURE OF LEFT FOREARM, SEQUELA TECHNIQUE: 3 views of the elbow were acquired. COMPARISON: 3 views of the left elbow dated 12/25/2023, 12/20/2023 FINDINGS: Bones: There is likely a displaced fracture of the proximal, lateral aspect of the ulna visualized o nly on the AP view. Soft tissues: There is a large effusion. No suspicious soft tissue calcifications or masses. IMPRESSION: Radiographic findings suspicious for displaced proximal ulnar fracture and large joint effusion. CT o f the elbow is recommended to further characterize this finding. Reviewed by: Lorena Antoine MD on 01/04/2024 5:31 PM PDT Approved by: Lorena Antoine MD on 01/04/2024 5:31 PM PDT Station ID: [id number]
--- NOTE | 2024-01-04 17:34 | XRAY Report ---
PROCEDURE: Forearm LT INDICATIONS: UNSPECIFIED FRACTURE OF LEFT FOREARM, SEQUELA TECHNIQUE: 2 views of the forearm were acquired. COMPARISON: None. FINDINGS: Bones: A questionable bone fragment is projected over the proximal radius. Soft tissues: There is elevation of the anterior fat pad at the elbow joint consistent with joint eff usion. No suspicious soft tissue calcifications or masses. IMPRESSION: Questionable fracture of the proximal ulna or radius and large joint effusion. CT of the elbow recomm ended to further characterize this finding. Reviewed by: Lorena Antoine MD on 01/04/2024 5:33 PM PDT Approved by: Lorena Antoine MD on 01/04/2024 5:33 PM PDT Station ID: [id number]
== END 2024-01-03 13:50 | disposition home or self-care (01) ==
LOC: LAB.N 13:49 → DI.N 13:50
PROVIDERS: ATTEND Physician Assistant Surgical
DX: M25.422 Effusion, left elbow (principal)

== ENCOUNTER 2024-01-04 15:53 | Outpatient (CLI) | payer MEDICARE, OTHER ==
--- NOTE | 2024-01-05 11:27 | CT Report ---
PROCEDURE: Upper Extremity LT WO INDICATIONS: RADIUS FX TECHNIQUE: Noncontrast 2 mm axial sections were acquired through the elbow joint, with coronal and sagittal refo rmats. For radiation dose reduction, the following was used: automated exposure control, adjustment of mA and/or kV according to patient size. 3-D reconstructed images were also generated for further fracture evaluation. COMPARISON: Left elbow radiographs 01/03/2024 and 12/25/2023 FINDINGS: Image quality: Excellent. Bones: Small mildly displaced osseous fragment is seen along the lateral aspect of the proximal ulna at the inferior aspect of the radial notch. Osseous fragment is displaced laterally by approximately 4 mm. Focal cortical irregularity is seen at the capitellar articular surface with articular surface step-off measuring up to 1 mm. No additional osseous fracture is seen. Radiocapitellar alignment is normal. 3 reconstructed images better demonstrate the relationship of fracture fragments. Soft tissues: Small joint effusion is present. Tiny nonspecific calcification is seen in the olecran on fossa. Articular cartilages, ligaments, tendons are not well evaluated on CT. The musculature surr ounding the elbow is normal in bulk. IMPRESSION: 1.Small mildly displaced fracture of the radial notch of the proximal ulna. 2.Focal cortical irregularity at the capitellum is suspicious for a possible small minimally impacted fracture. 3.Small joint effusion. Tiny calcific density at the olecranon fossa could represent a tiny loose bod y. Reviewed by: Vivek Chen MD on 01/05/2024 11:26 AM PDT Approved by: Vivek Chen MD on 01/05/2024 11:26 AM PDT Station ID: [id number]
== END 2024-01-04 15:54 | disposition home or self-care (01) ==
LOC: DI 15:53
PROVIDERS: ATTEND Physician Assistant Surgical
DX: S52.092A Other fracture of upper end of left ulna, initial encounter for closed fracture (principal); M25.422 Effusion, left elbow

== ENCOUNTER 2024-01-19 21:50 | Emergency (ER) | payer MEDICARE, OTHER ==
[2024-01-19 22:32] LABS: BILIRUBIN,URINE NEGATIVE (NEGATIVE); GLUCOSE, URINE (UA) NEGATIVE (NEGATIVE); KETONES,URINE (UA) NEGATIVE (NEGATIVE); LEUKOCYTE ESTERASE, URINE NEGATIVE (NEGATIVE); NITRITE,URINE NEGATIVE (NEGATIVE); OCCULT BLOOD,URINE SMALL (NEGATIVE); PH,URINE 5.5 PH (5.0-7.5); PROTEIN,URINE NEGATIVE (NEGATIVE); UROBILINOGEN,URINE 0.2 (NORMAL) E.U./dL (NORMAL)
[2024-01-19 22:34] LABS: BASOPHILS # (AUTO) 0.1 10^3/uL (0.0-0.1); BASOPHILS % (AUTO) 0.4 %; EOSINOPHILS # (AUTO) 0.3 10^3/uL (0.0-0.7); HCT - HEMATOCRIT 41.4 % (37.0-47.0); HGB - HEMOGLOBIN 13.2 g/dL (12.0-16.0); LYMPHOCYTES # (AUTO) 1.4 10^3/uL (1.5-3.5); LYMPHOCYTES % (AUTO) 10.3 %; MEAN CORPUSCULAR HEMOGLOBIN 30.6 pg (27.0-31.0); MEAN CORPUSCULAR HGB CONC 31.9 g/dL (32.0-36.0); MEAN CORPUSCULAR VOLUME 96.1 fL (81.0-99.0); MEAN PLATELET VOLUME 8.4 fL (7.9-10.8); MONOCYTES # (AUTO) 0.8 10^3/uL (0.0-1.0); NEUTROPHILS % (AUTO) 80.9 %; PLT - PLATELET COUNT 340 10^3/uL (130-450); RED BLOOD COUNT 4.31 10^6/uL (4.20-5.40); RED CELL DISTRIBUTION WIDTH 13.3 % (12.0-15.0); WHITE BLOOD COUNT 13.5 x10^3/uL (4.8-10.8)
[2024-01-19 22:36] LABS: CLARITY,URINE CLEAR (CLEAR)
[2024-01-19] MEDS ORDERED: iohexoL-300 100 ML VIAL ONE (22:41)
[2024-01-19 22:46] LABS: BACTERIA,URINE None Seen /HPF (None Seen); SQUAMOUS EPITHELIAL CELL,UR FEW Squamous (<= Few); WBC,URINE 0-3 /HPF (0-5)
[2024-01-19] MEDS: ONDANSETRON 4 MG/2 ML VIAL IVP STA (22:55)
[2024-01-19] MEDS: HYDROmorphone 1 MG/ML CARPUJECT IVP STA (22:55)
[2024-01-19] MEDS: SODIUM CHLORIDE 0.9% 1,000 ML IV STA (22:55)
[2024-01-19 23:00] LABS: CALCIUM 12.2 mg/dL (8.5-10.3)
[2024-01-19 23:01] LABS: ALBUMIN 4.8 g/dL (3.2-5.5); ALBUMIN/GLOBULIN RATIO 1.4 (1.0-2.2); BILIRUBIN,TOTAL 0.8 mg/dL (0.2-1.0); CREATININE 1.1 mg/dL (0.6-1.3); POTASSIUM 4.5 mmol/L (3.5-4.5); TOTAL PROTEIN 8.2 g/dL (6.4-8.9)
[2024-01-20] MEDS: iohexoL-300 100 ML VIAL IVP ONE (00:01)
--- NOTE | 2024-01-20 00:42 | CT Report ---
PROCEDURE: Abdomen/Pelvis W INDICATIONS: SBO CONTRAST: 100 ml omni 300 TECHNIQUE: After the administration of intravenous contrast, a CT scan of the abdomen and pelvis was performed. Images were recorded and evaluated at appropriate window settings. Reformats: coronal and sagittal. F or radiation dose reduction, the following was used: automated exposure control, adjustment of mA and /or kV according to patient size. COMPARISON: 10/27/2023 05/16/2023 and 09/02/2018. FINDINGS: Image quality: Diagnostic. Lower chest: Bibasilar dependent atelectasis is seen. Heart size is normal, no pericardial effusion.. Liver: No solid mass. Gallbladder: Surgically absent. Biliary tree: No intrahepatic or extrahepatic dilation, accounting for age. Spleen: No splenomegaly. Pancreas: No pancreatic ductal dilation. Adrenals: No adrenal nodule. Kidneys and ureters: No hydronephrosis. No renal cystic lesion which requires follow up. No solid mas s. Stomach, bowel and peritoneum: There is a small hiatal hernia. Postsurgical changes are seen in right upper quadrant abdomen from partial bowel resection with surgical anastomosis appears grossly intact . There is decompressed proximal small bowel loops with fluid distended mid to distal small bowel loo ps extending to the level of surgical anastomosis and ascending colon. There is a transition point in right upper quadrant series 2 image 76 and series 4 image 31. Proximal transition point is seen in l eft side of abdomen series 4 image 77 and series 2 image 79. No abscess collection. No free fluid of free air. Distal transverse colon, descending colon and sigmoid colon is decompressed. Lymph nodes: No central or retroperitoneal adenopathy. Vessels: No infrarenal aortic aneurysm. Patent portal vein. PELVIS Reproductive organs: Unremarkable. Bladder: No abnormal wall thickening, accounting for underdistention. Pelvic lymph nodes: No pelvic adenopathy by size criteria. Bones: No aggressive osseous abnormality. Other: No significant ventral or inguinal hernia. IMPRESSION: 1. Fluid-filled distended mid to distal small bowel loops and proximal colon with zone of transition in proximal and distal portion of the fluid distended bowel loops as described above concerning for s mall bowel obstruction secondary to internal hernia or other type of closed loop obstruction. No trish toneal free fluid of free air. No abscess collection. No abnormal bowel wall thickening. 2. Other findings are essentially unchanged from prior studies. Reviewed by: Guero Juarez MD on 01/20/2024 12:40 AM PDT Approved by: Guero Juarez MD on 01/20/2024 12:40 AM PDT Station ID: [id number]
[2024-01-20] MEDS: HYDROmorphone 1 MG/ML CARPUJECT IVP STA ×2 (01:16→03:40)
[2024-01-20 01:22] VITALS: O2SAT 97
--- NOTE | 2024-01-20 01:24 | ED Physician Documentation ---
PD HPI ABD PAIN - Stated complaint Stated Complaint: N/V/ABD PX - Chief complaint Chief Complaint: Abd Pain - History obtained from History obtained from: Patient - History of Present Illness Timing - onset: Enter time (0), Today Timing - duration: Hours Timing - details: Abrupt onset, Still present Quality: Cramping, Sharp, Pain Location: Periumbilical Improved by: Laying still, Vomiting Worsened by: Moving, Breathing, Position, Palpation Associated symptoms: Nausea, Vomiting, Other (The patient had normal BM this morning). No: Diarrhea, Constipation Similar symptoms before: Diagnosis (SBO chrons disease) Recently seen: Not recently seen - Additional information Additional information: Rafaela Falcon is a 63-year-old female with a history of Crohn's disease who has been off of Humira for 4 months. She has had a history of small bowel obstruction a number of times. She had [facility] in 2017 [facility] [place]. She has not required further surgery. Usually her symptoms are in the right lower quadrant. Today she is having symptoms of pain in the periumbilical region nausea and vomiting. She has had multiple episodes of vomiting feels improved after vomiting. She indicates that she had a normal bowel movement this morning had some eggs for breakfast and about 12:30 in the afternoon she began to experience symptoms. Review of Systems Constitutional: denies: Fever Eyes: denies: Decreased vision Ears: denies: Ear pain Nose: denies: Rhinorrhea / runny nose, Congestion Throat: denies: Sore throat Cardiac: denies: Chest pain / pressure, Palpitations Respiratory: denies: Dyspnea, Cough GI: reports: Abdominal Pain, Nausea, Vomiting : denies: Dysuria, Frequency Skin: denies: Rash Musculoskeletal: denies: Neck pain, Back pain, Extremity pain Neurologic: denies: Generalized weakness, Focal weakness, Numbness PD PAST MEDICAL HISTORY - Past Medical History Past Medical History: Yes Cardiovascular: Congestive heart failure Respiratory: Asthma, COPD Neuro: None Endocrine/Autoimmune: HyPOthyroidism GI: GERD, Crohn's disease 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: Other : Incontinence HEENT: None Psych: Depression, Anxiety, Bipolar disorder, Post traumatic stress disorder, Obsessive compulsive disorder Musculoskeletal: Chronic back pain Derm: None - Past Surgical History Past Surgical History: Yes General: Cholecystectomy, Appendectomy, Bowel surgery /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: section, Oophrectomy HEENT: Tonsil/Adenoidectomy Derm: Skin cancer surgery - Present Medications Home Medications: Ambulatory Orders Medication Instructions Recorded Confirmed Lisinopril [Zestril] 20 mg PO DAILY 10/27/23 01/19/24 Levothyroxine Sodium [Synthroid] 150 mcg PO DAILY 12/20/23 01/19/24 oxyCODONE [Roxicodone] 5 mg PO Q8H PRN #10 tablet 12/20/23 01/19/24 Gabapentin [Neurontin] 300 mg PO TID 01/19/24 01/19/24 Omeprazole 40 mg PO DAILY 01/19/24 01/19/24 traZODone [Desyrel] 50 mg PO HS 01/19/24 01/19/24 - Allergies Allergies/Adverse Reactions: Allergies Allergy/AdvReac Type Severity Reaction Status Date / Time quetiapine fumarate * Allergy Intermediate Hives Verified 01/19/24 22:05 [From Seroquel] Sulfa (Sulfonamide Allergy Intermediate Hives Verified 01/19/24 22:05 Antibiotics) adalimumab [From Humira] Allergy Unknown Verified 01/19/24 22:05 Penicillins Allergy Hives Verified 01/19/24 22:05 - Social History Does the pt smoke?: No Smoking Status: Former smoker Does the pt drink ETOH?: No Does the pt have substance abuse?: No - Immunizations Immunizations are current?: Yes - POLST Patient has POLST: No POLST Status: Full Code PD ED PE NORMAL - Vitals Vital signs reviewed: Yes (Afebrile tachycardic and hypertensive.) - General General: Alert and oriented X 3, Well developed/nourished, Other (63-year-old female appears uncomfortable.) - HEENT HEENT: Atraumatic, PERRL, EOMI - Neck Neck: Supple, no meningeal sign, No bony TTP - Cardiac Cardiac: RRR, No murmur - Respiratory Respiratory: No respiratory distress, Clear bilaterally - Abdomen Abdomen: Soft, Non distended, Other (Mild general tenderness no peritoneal signs periumbilical tenderness.) - Back Back: No CVA TTP, No spinal TTP - Derm Derm: Normal color, Warm and dry, No rash - Extremities Extremities: No deformity, No edema - Neuro Neuro: Alert and oriented X 3, manual tester 2-12 intact, No motor deficit, No sensory deficit, Normal speech Eye Opening: Spontaneous Motor: Obeys Commands Verbal: Oriented GCS Score: 15 - Psych Psych: Normal mood, Normal affect Results - Vitals Vitals: Vital Signs - 24 hr 01/19/24 01/19/24 01/20/24 22:01 22:59 00:05 Temperature 36.3 C L 36 C L Heart Rate 127 H 99 100 Respiratory 16 16 17 Rate Blood Pressure 139/89 H 107/75 119/81 H O2 Saturation 95 95 98 If not protocol : Oxygen Flow, liters/minute 01/20/24 01/20/24 01/20/24 01:19 03:00 04:30 Temperature 36.1 C L Heart Rate 98 100 99 Respiratory 16 16 16 Rate Blood Pressure 118/81 H 114/88 H 96/51 L O2 Saturation 97 97 97 If not protocol 2 2 2 : Oxygen Flow, liters/minute Oxygen O2 Source Nasal cannula - Labs Labs: Laboratory Tests 01/19/24 01/19/24 01/19/24 22:11 22:27 22:27 WBC 13.5 H RBC 4.31 Hgb 13.2 Hct 41.4 MCV 96.1 MCH 30.6 MCHC 31.9 L RDW 13.3 Plt Count 340 MPV 8.4 Neut # (Auto) 11.0 H Lymph # (Auto) 1.4 L Stokes # (Auto) 0.8 Eos # (Auto) 0.3 Baso # (Auto) 0.1 Absolute Nucleated RBC 0.00 Nucleated RBC % 0.0 Sodium 135 Potassium 4.5 Chloride 104 Carbon Dioxide 21 Anion Gap 10.0 BUN 26 H Creatinine 1.1 Estimated GFR (MDRD) 50 L Glucose 129 H Calcium 12.2 H* Total Bilirubin 0.8 AST 24 ALT 33 Alkaline Phosphatase 142 H Total Protein 8.2 Albumin 4.8 Globulin 3.4 Albumin/Globulin Ratio 1.4 Lipase 26 Urine Color YELLOW Urine Clarity CLEAR Urine pH 5.5 Ur Specific Hitchcock 1.025 Urine Protein NEGATIVE Urine Glucose (UA) NEGATIVE Urine Ketones NEGATIVE Urine Occult Blood SMALL H Urine Nitrite NEGATIVE Urine Bilirubin NEGATIVE Urine Urobilinogen 0.2 (NORMAL) Ur Leukocyte Esterase NEGATIVE Urine RBC 6-10 H Urine WBC 0-3 Ur Squamous Epith Cells FEW Squamous Urine Bacteria None Seen Ur Microscopic Review INDICATED Urine Culture Comments NOT INDICATED - Rads (name of study) CT abdomen and pelvis with Relevant Findings:: Prelim report reviewed Chest Relevant Findings:: Prelim report reviewed (Impression: Distal tip of gastric tube progects over the Proximal gastric body. Hazy left basilar atelectasis/infiltrate.), EMP independent interpretation of test, See rad report PD Medical Decision Making - ED course Complexity details: reviewed old records, reviewed results, re-evaluated deya ent, considered differential, d/w patient, d/w family, d/w marketing database consultant (Dr. Montague general surgery [facility] 04:20 will accept to the ED at [facility]. ) Reviewed Lab Results: Impression: 1. Fluid filled distended mid to distal small bowel loops and proximal colon with a zone of transition in proximal and distal portion of the fluid-filled distended bowel loops as described above concerning for small bowel obstruction secondary to internal hernia or other type of closed-loop obstruction. No peritoneal free fluid or free air. No abscess collection. No abnormal bowel wall thickening. Other findings are essentially unchanged from prior studies. We reviewed a complete blood cell count showing an elevated white blood cell count of 13.5 and normal hemoglobin hematocrit and platelets normal indices chemistries show normal electrolytes BUN is elevated at 26 creatinine is normal at 1.1 the calcium is elevated at 12.2 corrected for albumin it is 11.6. She has had elevated calcium on all prior visits. Alkaline phosphatase mildly elevated at 142 similar to prior elevations. Urinalysis is remarkable only for small occult blood and 6-10 red bells per high-powered field ED course: 63-year-old female presents to the emergency department with signs and symptoms of small bowel obstruction in the setting of Crohn's disease. She has had this similar occurrence previously with the exception of the pain is now periumbilical instead of right lower quadrant. She has had 1 surgical procedure associated with bowel obstruction in 2017. She has had a diagnosis done in 2012. She is not currently under treatment for Crohn's disease.She is treated in the emergency department with intravenous saline Dilaudid and Zofran. She appears comfortable and on admission to the emergency department she is indicating that she would like to try to resolve this and go home. Here in the emergency department we have found evidence of a potential internal hernia or closed-loop obstruction and our surgeon is consulted in the case. After careful evaluation Dr. Hwang recommends the patient be transferred to a center with capable of caring for a patient with Crohn's disease that may need surgical intervention. He recommends placement of a an NG tube and maintenance fluids. The patient does not have peritoneal signs and he recommends initial conservative management and transfer. After review of films the surgeon Dr. Rene at [facility] contacted us and recommends transfer they will accept her at the emergency department at [facility]. Our transportation to [facility] would be considerably delayed to use ground transport. We would wait generally over 1 hour to have transport arrived here for a 2 1/2-hour trip to [place]. If this patient requires a more urgent surgery this would delay her care significantly. Departure - Departure Disposition: 02 Transfer Acute Care Hosp Clinical Impression: Small bowel obstruction Condition: Fair Forms: PCP List Discharge Date/Time: 01/20/24 04:45
--- NOTE | 2024-01-20 02:35 | CONSULTATION NOTE ---
Surgery Consult - Consult Date Consult Date: 01/20/24 Requesting Provider: Juliano Smith - Chief Complaint Chief Complaint: Abdominal pain - Home Meds/Allergies Home Medications: Patient History Medication Instructions Recorded Confirmed Lisinopril [Zestril] 20 mg PO DAILY 10/27/23 01/19/24 Levothyroxine Sodium [Synthroid] 150 mcg PO DAILY 12/20/23 01/19/24 Gabapentin [Neurontin] 300 mg PO TID 01/19/24 01/19/24 Omeprazole 40 mg PO DAILY 01/19/24 01/19/24 traZODone [Desyrel] 50 mg PO HS 01/19/24 01/19/24 Allergies/Adverse Reactions: Allergies Allergy/AdvReac Type Severity Reaction Status Date / Time quetiapine fumarate * Allergy Intermediate Hives Verified 01/19/24 22:05 [From Seroquel] Sulfa (Sulfonamide Allergy Intermediate Hives Verified 01/19/24 22:05 Antibiotics) adalimumab [From Humira] Allergy Unknown Verified 01/19/24 22:05 Penicillins Allergy Hives Verified 01/19/24 22:05 - Vital Signs Vital Signs: Last Vital Signs Temp 96.8 F L 01/19/24 22:59 Pulse 98 01/20/24 01:19 Resp 16 01/20/24 01:19 BP 118/81 H 01/20/24 01:19 Pulse Ox 97 01/20/24 01:19 O2 Flow Rate 2 01/20/24 01:19 Intake & Output: Intake & Output 01/17/24 01/18/24 01/19/24 01/20/24 23:59 23:59 23:59 23:59 Intake Total 1000 Balance 1000 - Lab Results Result Diagrams: 01/19/24 22:27 01/19/24 22:27 - Consultation Note Consultation Note: General Surgery Consultation Note Assessment: 1) Recurrent SBO likely due to progressive Crohn's disease. No clinical or image evidence of bowel ischemia. Her last SBO event was 2 months ago and resolved without intervention. Given her prior management by Gastroenterology and Colorectal specialists for this chronic GI problem, I think it would be prudent to have her transferred to a tertiary care center. Medical management of her Crohn's may resolve her bowel obstruction and if surgery is required, the availability of colo-rectal surgeons with specialty training in the management of Crohn's can be offered to minimize the risk of further loss of small bowel. Recommendation: 1) Continue IV fluids and analgesia as needed in ED. An NGT to LIS should be placed. 2) Arrange for transfer to [place] (her choice) so that she can obtain evaluation from GI Medicine and Colorectal surgery regarding management of her chronic, recurrent obstruction. 3) If transfer is not possible, she can be admitted to our Medical Hospitalist Service and General Surgery will follow and offer emergency surgical intervention as indicated. <><><><><><><><><><> Reason for Consultation SBO; History of Crohn's disease Chief Complaint Abdominal cramping, nausea, emesis ADRI Russo is a 63 year old female with a history of Crohn's disease of the small bowel. in 2016, she underwent laparotomy with removal of what she tells me is 5 feet of intestine. The records seem to indicate that she underwent an ileocecectomy. She was followed by GI medicine and placed on a variety of different immunosuppressant agents which she chose to discontinue earlier this year due to side effects. She was last seen in our ED in October 2023 with signs and symptoms of a recurrent SBO which resolved spontaneously. She was well until about 1500 yesterday when she developed abdominal distension, abdominal cramping associated with emesis of a recent meal. Her last BM was yesterday morning. She denies the passage of flatus. As her symptoms did not spontaneously resolve as they have in the past she came to the ED where IV f luids and analgesics were offered. CT scan identified a small bowel obstruction. She refused an NGT and I was called to assist in her evaluation and management. At the time of my encounter with the patient, she was resting comfortably in the ED bed. She complained of intermittent abdominal cramping. There has been no further emesis. She denies fevers or chills. ROS Pertinent positives Nausea, emesis, abdominal cramping All other reviewed systems negative Physical Examination Vital Signs: See "Vital Signs" section BMI: 34 GENERAL APPEARANCE: Normal development, normal body habitus, normal grooming PSYCHIATRIC: AAO; Comfortable; In NAD EYES: Pupils equal, round and reactive to light, sclera anicteric EARS, NOSE, MOUTH, THROAT: Hearing normal, Oral mucous membranes moist and without lesions; NECK: No crepitus, lymphadenopathy, or thyromegaly LUNGS: Clear to auscultation without wheezing; No use of accessory muscles to breathe CARDIOVASCULAR: Heart-NSR without murmurs; Palpable carotid arteries - no bruits; Aorta, Femoral, Pedal pulses palpable; Peripheral edema absent ABD: Soft, distended, minimally tender, No peritoneal signs; No palpable mass; Absent bowel sounds LYMPHATIC: Neck, Axillae, Groin No palpable adenopathy EXTREMITIES: No clubbing, cyanosis, infections SKIN: Anicteric; No rashes, lesions, Ulcerations Labs See "Labs" section Imaging CT Abd/Pelvis - distended small bowel to the ileocecal anastomosis with paucity of gas/air in the colon. (My read). I am unable to see the closed loop obstruction described in the report. I do not see a mesenteric swirl. All images were personally reviewed by me for this encounter. Mykel Reeves MD, [facility] General Surgery Service [phone]
[2024-01-20] MEDS: ONDANSETRON 4 MG/2 ML VIAL IVP STA (03:40)
[2024-01-20 04:38] VITALS: BP 96/51
--- NOTE | 2024-01-20 06:52 | XRAY Report ---
PROCEDURE: Chest for Line Placement INDICATIONS: NG placement TECHNIQUE: One view of the chest was acquired. COMPARISON: 10/27/2023 FINDINGS: Surgical changes and devices: Enteric tube terminates in the gastric body. Lungs and pleura: Possible mild left lung base opacity. No drainable pleural effusion. Mediastinum: Heart size is normal Bones and chest wall: Unremarkable IMPRESSION: Enteric tube terminates in gastric body. Mild left lung base opacity possibly atelectasis or airspace disease. Consider future imaging surveil benja to assess for resolution. Agree with preliminary report. Reviewed by: Billy Alejandro MD on 01/20/2024 6:51 AM PDT Approved by: Billy Alejandro MD on 01/20/2024 6:51 AM PDT Station ID: [id number]
== END 2024-01-20 04:45 | disposition short-term general hospital (02) ==
LOC: ED 21:50
DX: K56.699 Other intestinal obstruction unspecified as to partial versus complete obstruction (principal); K50.90 Crohn's disease, unspecified, without complications; Z87.891 Personal history of nicotine dependence
CPT/HCPCS: 36415; 74177; 80053; 81001; 83690; 85025; 96361; 96374; 96376; 99285; J1170; Q9967; 81003; 87086

== ENCOUNTER 2024-02-01 14:12 | Outpatient (CLI) | payer MEDICARE, OTHER ==
--- NOTE | 2024-02-02 12:31 | XRAY Report ---
PROCEDURE: Forearm LT INDICATIONS: ARM PAIN, LEFT TECHNIQUE: 2 views of the forearm were acquired. COMPARISON: None. FINDINGS: Bones: No fractures or dislocations of the mid to distal radius and ulna. No suspicious bony lesion s. Soft tissues: No suspicious soft tissue calcifications or masses. No radiopaque foreign body. IMPRESSION: 1.No acute bony abnormality of the mid to distal radius and ulna. 2.Please see CT elbow on January 05, 2024 for detailed description of elbow fractures. Reviewed by: Justine Low MD on 02/02/2024 12:29 PM PDT Approved by: Justine Low MD on 02/02/2024 12:29 PM PDT Station ID: [id number]
--- NOTE | 2024-02-02 12:47 | XRAY Report ---
PROCEDURE: Elbow 3+V LT INDICATIONS: ELBOW PAIN, LEFT TECHNIQUE: 3 views of the elbow were acquired. COMPARISON: CT elbow dated January 04, 2024. Elbow radiograph on January 03, 2024. FINDINGS: Bones: Mildly displaced fracture of the proximal ulna and cortical irregularity at the capitellum ar e better seen on CT elbow dated January 04, 2024. No suspicious bony lesions. Soft tissues: Moderate effusion. No suspicious soft tissue calcifications or masses. IMPRESSION: 1.Mildly displaced fracture of the proximal ulna and cortical irregularity at the capitellum are bett er seen on CT elbow dated January 04, 2024. 2.Moderate elbow joint effusion persists. Reviewed by: Justine Low MD on 02/02/2024 12:45 PM PDT Approved by: Justine Low MD on 02/02/2024 12:45 PM PDT Station ID: [id number]
--- NOTE | 2024-02-02 12:49 | XRAY Report ---
PROCEDURE: Wrist 3+V LT INDICATIONS: ARM PAIN, LEFT TECHNIQUE: 3 views of the wrist were acquired. COMPARISON: None. FINDINGS: Bones: No fractures or dislocations. Mild first CMC joint space narrowing and juxta-articular osteo phytosis. No suspicious bony lesions. Soft tissues: No suspicious soft tissue calcifications or masses. IMPRESSION: 1.No acute bony abnormality. If there is anatomic snuff box tenderness, consider wrist immobilization and repeat radiographs in 10-14 days or cross-sectional imaging now. If pain persists with conservat noni management, consider repeat radiographs in 10-14 days or cross-sectional imaging. 2.Mild first CMC joint osteoarthritis. Reviewed by: Justine Low MD on 02/02/2024 12:48 PM PDT Approved by: Justine Low MD on 02/02/2024 12:48 PM PDT Station ID: [id number]
--- NOTE | 2024-02-02 12:50 | XRAY Report ---
PROCEDURE: Hand 3+V LT INDICATIONS: WRIST PAIN TECHNIQUE: 3 views of the hand(s) acquired. COMPARISON: None. FINDINGS: Bones: No fractures or dislocations. Mild first CMC joint space narrowing and juxta-articular osteop hytosis. No suspicious bony lesions. Soft tissues: No suspicious soft tissue calcifications or masses. IMPRESSION: 1.No acute bony abnormality. If pain persists with conservative management, consider repeat radiograp hs in 10-14 days or cross-sectional imaging. 2.Mild first CMC joint osteoarthritis. Reviewed by: Justine Low MD on 02/02/2024 12:48 PM PDT Approved by: Justine Low MD on 02/02/2024 12:48 PM PDT Station ID: [id number]
== END 2024-02-01 14:13 | disposition home or self-care (01) ==
LOC: DI.N 14:12
DX: S52.002A Unspecified fracture of upper end of left ulna, initial encounter for closed fracture (principal); M25.422 Effusion, left elbow; M18.12 Unilateral primary osteoarthritis of first carpometacarpal joint, left hand

== ENCOUNTER 2024-02-09 14:09 | Outpatient (CLI) | payer MEDICARE, OTHER ==
--- NOTE | 2024-02-09 17:40 | XRAY Report ---
PROCEDURE: Elbow 3+V LT INDICATIONS: OTHER FRACTURE OF UPPER END OF LEFT ULNA TECHNIQUE: 3 views of the elbow were acquired. COMPARISON: Left elbow radiographs 02/01/[address] 01/04/2020. FINDINGS: Bones: Small minimally displaced fracture is again seen at the lateral aspect of the proximal ulna. Tendons: Irregularity at the capitellum. Soft tissues: Moderate effusion. No suspicious soft tissue calcifications. IMPRESSION: Unchanged appearance of the small proximal ulnar fracture and suspected capitellar fracture. Moderate joint effusion. Reviewed by: Vivek Chen MD on 02/09/2024 5:39 PM PDT Approved by: Vivek Chen MD on 02/09/2024 5:39 PM PDT Station ID: [id number]
== END 2024-02-09 14:10 | disposition home or self-care (01) ==
LOC: DI.N 14:09
PROVIDERS: ATTEND Orthopaedic Surgery
DX: S52.002D Unspecified fracture of upper end of left ulna, subsequent encounter for closed fracture with routine healing (principal); M25.422 Effusion, left elbow

== ENCOUNTER 2024-02-22 11:08 | Outpatient (CLI) | payer MEDICARE, OTHER ==
[2024-02-22 11:26] LABS: CALCIUM, IONIZED 1.4 mmol/L (1.15-1.33); VBG PH 7.35 (7.31-7.41)
[2024-02-22 11:39] LABS: CALCIUM 11.1 mg/dL (8.5-10.3); PHOSPHORUS 2.5 mg/dL (2.5-5.0)
[2024-02-22 11:57] LABS: THYROID STIMULATING HORMONE 4.31 uIU/mL (0.34-5.60)
[2024-02-26 15:09] LABS: A/G RATIO 1.4 (0.7-1.7); ALBUMIN 3.8 g/dL (2.9-4.4); ALPHA-1-GLOBULIN 0.2 g/dL (0.0-0.4); ALPHA-2-GLOBULIN 0.8 g/dL (0.4-1.0); BETA GLOBULIN 1.1 g/dL (0.7-1.3); GAMMA GLOBULIN 0.8 g/dL (0.4-1.8); GLOBULIN, TOTAL 2.8 g/dL (2.2-3.9); PROTEIN TOTAL 6.6 g/dL (6.0-8.5)
== END 2024-02-22 11:09 | disposition home or self-care (01) ==
LOC: LAB 11:08
PROVIDERS: ATTEND Internal Medicine Endocrinology, Diabetes & Metabolism
DX: E03.9 Hypothyroidism, unspecified (principal); E21.3 Hyperparathyroidism, unspecified
CPT/HCPCS: 36415; 81599; 82306; 82310; 82330; 83970; 84100; 84155; 84165; 84439; 84443

== ENCOUNTER 2024-02-26 09:40 | Outpatient (CLI) | payer MEDICARE, OTHER | END 2024-02-26 09:41 | disposition home or self-care (01) | LOC: LAB 09:40 → LAB.R 09:41 | PROVIDERS: ATTEND Internal Medicine Endocrinology, Diabetes & Metabolism | DX: E21.3 Hyperparathyroidism, unspecified (principal) | CPT/HCPCS: 81599 ==